=== PATIENT | male | born 1990 | race Hispanic/Latino ===

== ENCOUNTER 2017-06-09 10:38 | Emergency (ER) | payer OTHER ==
[2017-06-09 11:24] VITALS: RESP 18; TEMP 98.3; O2SAT 99; BMI 27.2
--- NOTE | 2017-06-09 12:09 | ED PDOC ---
Arrival/HPI - General Chief Complaint: Fever Time Seen by Provider: 06/09/17 10:40 Historian: Patient - History of Present Illness Narrative History of Present Illness (Text): 06/09/17 12:02 A 26 year old male, with no siginificant past medical history, presents to the emergency department complaining of fever and chills on/for the last 2 days. Patient states he took Motrin and Tylenol for his fever but had no relief. He went to Urgent Care and was given Amoxicillin, which did not help. Also, patient mentions experiencing left ear pressure and suprapubic pain with freq. urinating. Patient denies any dysuria, sore throat, cough, or any other complaints. No PMD Past Medical History - Provider Review Nursing Documentation Reviewed: Yes - Infectious Disease Hx of Infectious Diseases: None - Psychiatric Hx Substance Use: Yes (Socially) - Anesthesia Hx Anesthesia: No Family/Social History - Physician Review Nursing Documentation Reviewed: Yes Family/Social History: No Known Family HX Smoking Status: Never Smoked Hx Alcohol Use: Yes Frequency of alcohol use: Socially Hx Substance Use: Yes (Socially) Substance used: Marijuana Allergies/Home Meds Allergies/Adverse Reactions: Allergies No Known Allergies Allergy (Verified 06/09/17 11:29) Home Medications: Home Meds Medication Instructions Recorded Confirmed No Known Home Med 06/09/17 06/09/17 Physical Exam - Physical Exam Narrative Physical Exam (Text): 06/09/17 12:06 - Review of Systems Constitutional: Fevers. absent: Fatigue, Weight Change, Eyes: Normal ENT: Present: Left ear pressure. Denies sore throat, denies tristhmus. Respiratory: Normal. absent: SOB, Cough, Sputum Cardiovascular: absent: Chest Pain, Palpitations, Syncope Gastrointestinal: Normal. absent: Abdominal Pain, Diarrhea, Nausea, Vomiting Genitourinary: suprapubic pain, frequency. absent: Dysuria, Hematuria Musculoskeletal: Normal. absent: Arthralgias, Back Pain, Neck Pain Skin: no rashes, no erythema Neurological: absent: Focal Weakness Endocrine: Normal Hemo/Lymphatic: Normal Psychiatric: No suicidal or homicidal ideations Physical exam Patient appears age appropriate in no distress, speaking full sentences without difficulty - Systems Exam Head: Present: Atraumatic, Normocephalic Pupils: Present: PERRL Extroacular Muscles: Present: EOMI Conjunctiva: Present: Normal Mouth: Present: Moist Mucous Membranes Neck: Present: Normal Range of Motion. No: MIDLINE TENDERNESS, Paraspinal Tenderness Respiratory/Chest: Present: Clear to Auscultation, Good Air Exchange. No: Respiratory Distress, Accessory Muscle Use, Tachypneic Cardiovascular: Present: Regular Rate and Rhythm, Normal S1, S2, Peripheal Pulses Present. No: Murmurs Abdomen: Present: Normal Bowel Sounds. No: Tenderness, Distention, Peritoneal Signs, Rebound, Guarding Back: Present: Normal Inspection. No: Midline Tenderness, Paraspinal Tenderness Upper Extremity: Present: Normal Inspection. No: Cyanosis, Edema Lower Extremity: Present: Normal Inspection. No: Edema Neurological: Present: GCS=15, Speech Normal, cranial nerves II through XII fully intact with no cerebellar abnormality, neurosensory fully intact. No focal neurological deficits. Skin: Present: Warm, Dry, Normal Color. No: Rashes Lymphatic: Present: OX3, NI, NC Psychiatric: Present: Alert, Oriented x 3, Normal Insight, Normal Concentration Vital Signs Reviewed: Yes Vital Signs Temp Pulse Resp BP Pulse Ox 06/09/17 13:29 79 18 118/63 99 06/09/17 12:28 89 18 121/65 99 06/09/17 11:23 98.3 F 95 H 18 119/69 99 Temperature: Afebrile Blood Pressure: Normal Pulse: Regular Respiratory Rate: Normal Appearance: Positive for: Well-Appearing Pain Distress: None Mental Status: Positive for: Alert and Oriented X 3 - Systems Exam Ears: Present: Normal, NORMAL TM, Normal Canal. No: Erythema, TM Bulging, Fluid , TM Perf Pharnyx: Present: Normal. No: ERYTHEMA, EXUDATE, TONSILS ENLARGED, Peritonsilar Swelling, Uvular Deviation, Muffled/Hoarse Voice, Strider, Soft Palate/Uvular Edema Medical Decision Making ED Course and Treatment: 06/09/17 12:07 Impression: 26 year old male with fevers, chills, left ear pressure, and complaints. No acute findings on physical exam. Plan: -- Chest X-ray -- Labs -- Urinalysis -- Toradol -- IV Fluids -- Blood Culture -- Urine Culture -- Reassess and disposition Progress Notes: 06/09/2017 12:10 Patient is aware to follow up with medical records for urine. 06/09/17 13:15 Chest X-ray read and interpreted by me, which shows no cardiomegaly, no pneumothorax, no effusions. 06/09/17 13:42 pt currently afebrile and denies complaints. diagnosis of mono also considered, but unlikely since pt has no sore throat, normal lymphocytes, no rash after amoxicillin instructed to f/u outpatient with primary care physician and ENT specialist for further w/u and to return right away for new or worsening symptoms or if he is unable to f/u as instructed Pt states he understands to return to the ER right away for new or worsening symptoms or for inability to f/u with PMD or specialist as instructed. Patient states that he fully agrees with and understands discharge instructions. States that he agrees with the plan and disposition. Verbalized and repeated discharge instructions and plan. I have given the patient opportunity to ask any additional questions. - Lab Interpretations Lab Results: 06/09/17 13:03 06/09/17 13:03 Lab Results 06/09/17 13:03: Sodium 136, Potassium 4.4, Chloride 95 L, Carbon Dioxide 29, Anion Gap 16, BUN 12, Creatinine 0.8, Est GFR ( Amer) > 60, Est GFR (Non- Af Amer) > 60, Random Glucose 88, Calcium 9.1, Total Bilirubin 0.8, AST 66 H, ALT 61 H, Alkaline Phosphatase 102, Total Protein 7.4, Albumin 4.0, Globulin 3.3 , Albumin/Globulin Ratio 1.2 06/09/17 13:03: Urine Color Yellow, Urine Appearance Clear, Urine pH 7.0, Ur Specific [place] <= 1.005, Urine Protein Negative, Urine Glucose (UA) Negative, Urine Ketones Negative, Urine Blood Negative, Urine Nitrate Negative, Urine Bilirubin Negative, Urine Urobilinogen 0.2, Ur Leukocyte Esterase Negative 06/09/17 13:03: WBC 5.3, RBC 4.58, Hgb 13.5 L, Hct 41.2 L, MCV 90.0, MCH 29.5, MCHC 32.8, RDW 13.1, Plt Count 122, MPV 10.9, Gran % 64.1, Lymph % (Auto) 22.9, [place] % (Auto) 12.2 H, Eos % (Auto) 0.4 L, Baso % (Auto) 0.4, Gran # 3.41, Lymph # 1.2, [place] # 0.7 H, Eos # 0.0, Baso # 0.02 I have reviewed the lab results: Yes - RAD Interpretation Radiology Orders: 06/09/17 12:11 CHEST PORTABLE [RAD] Stat - Medication Orders Current Medication Orders: Discontinued Medications Sodium Chloride (Sodium Chloride 0.9%) 1,000 mls @ 1,000 mls/hr IV .Q1H STA Stop: 06/09/17 13:09 Last Admin: 06/09/17 12:39 Dose: 1,000 mls/hr eMAR Start Stop Document 06/09/17 12:39 [place] (Rec: 06/09/17 12:39 [id number]) Intravenous Solution Start Date 06/09/17 Start Time 12:39 Ketorolac Tromethamine (Toradol) 30 mg IVP STAT STA Stop: 06/09/17 12:11 Last Admin: 06/09/17 12:39 Dose: 30 mg MAR Pain Assessment Document 06/09/17 12:39 [place] (Rec: 06/09/17 12:40 [id number]) Pain Reassessment Is this a pain reassessment? No Sleep Is patient sleeping during reassessment? No Presence of Pain Presence of Pain Yes Pain Scale Used Pain Scale Used Numeric Location Pain Location Body Site Abdomen Description Intensity of Pain at present 8 Acceptable Level of Pain 2 IVP Administration Document 06/09/17 12:39 [place] (Rec: 06/09/17 12:40 [id number]) Charges for Administration # of IVP Administrations 1 - Scribe Statement The provider has reviewed the documentation as recorded by the Marci Fagan Provider Scribe Attestation: All medical record entries made by the Ngoziibrowdy were at my direction and personally dictated by me. I have reviewed the chart and agree that the record accurately reflects my personal performance of the history, physical exam, medical decision making, and the department course for this patient. I have also personally directed, reviewed, and agree with the discharge instructions and disposition. Disposition/Present on Arrival - Present on Arrival Any Indicators Present on Arrival: No History of DVT/PE: No History of Uncontrolled Diabetes: No Urinary Catheter: No History of Decub. Ulcer: No History Surgical Site Infection Following: None - Disposition Have Diagnosis and Disposition been Completed?: Yes Diagnosis: Fever Disposition: HOME/ ROUTINE Disposition Time: 13:46 Patient Plan: Discharge Condition: GOOD Discharge Instructions (ExitCare): Fever in Adults (ED) Additional Instructions: PLEASE RETURN TO THE EMERGENCY DEPARTMENT FOR NEW OR WORSENING SYMPTOMS. RETURN RIGHT AWAY IF YOU CANNOT FOLLOW UP WITH YOUR PRIMARY CARE DOCTOR, CLINIC, OR SPECIALIST IN 1-2 DAYS. Please continue taking Motrin or Tylenol for your symptoms, per pharmacy instructions Referrals: PCP,NO [Primary Care Provider] - Follow up with primary Debora Kovacs MD [Staff Provider] - Follow up with primary Addy Farfan DO [Staff Provider] - Follow up with primary [facility] [place] [Outside] - Follow up with primary Forms: [employer] (Romansh), WORK NOTE
[2017-06-09] MEDS ORDERED: Sodium Chloride 0.9% 1,000 ML IV STA (12:10)
[2017-06-09 13:11] LABS: BASO # 0.02 K/mm3 (0.0-2.0); BASO % 0.4 % (0.0-3.0); EOS % 0.4 % (1.5-5.0); GRAN # 3.41 (1.4-6.5); GRAN % 64.1 % (50.0-68.0); HEMATOCRIT 41.2 % (42.0-52.0); LYMPH # 1.2 (1.2-3.4); LYMPH % 22.9 % (22.0-35.0); MEAN CORPUSCULAR HEMOGLOBIN 29.5 pg (25.0-35.0); MEAN CORPUSCULAR HGB CONC 32.8 g/dl (31.0-37.0); MEAN PLATELET VOLUME 10.9 fl (7.0-11.0); MONO # 0.7 (0.1-0.6); MONO % 12.2 % (1.0-6.0); RED CELL DISTRIBUTION WIDTH 13.1 % (11.5-14.5); WHITE BLOOD COUNT 5.3 10^3/ul (4.5-11.0)
[2017-06-09 13:16] LABS: URINE APPEARANCE CLEAR (CLEAR); URINE BILIRUBIN NEGATIVE (NEGATIVE); URINE BLOOD NEGATIVE (NEGATIVE); URINE COLOR YELLOW (YELLOW); URINE GLUCOSE (UA) NEGATIVE (NEGATIVE); URINE KETONE NEGATIVE (NEGATIVE); URINE LEUKOCYTE ESTERASE NEGATIVE Leu/uL (NEGATIVE); URINE PROTEIN NEGATIVE mg/dL (<30 mg/dL); URINE UROBILINOGEN 0.2 E.U./dL (<1 E.U./dL)
[2017-06-09 13:23] LABS: ALB/GLOB RATIO 1.2 (1.1-1.8); ALKALINE PHOSPHATASE 102 U/L (38-126); ALT/SGPT 61 U/L (7-56); AST/SGOT 66 U/L (17-59); BILIRUBIN,TOTAL 0.8 mg/dL (0.2-1.3); BLOOD UREA NITROGEN 12 mg/dL (7-21); CALCIUM 9.1 mg/dL (8.4-10.5); CARBON DIOXIDE 29 mmol/L (21-33); CHLORIDE 95 mmol/L (98-107); GFR AFRICAN-AMERICAN > 60; GLUCOSE,RANDOM 88 mg/dL (70-110); POTASSIUM 4.4 mmol/L (3.6-5.0); SODIUM 136 mmol/L (132-148); TOTAL PROTEIN 7.4 g/dL (5.8-8.3)
--- NOTE | 2017-06-09 13:31 | RAD ---
HISTORY: cough COMPARISON: No prior. FINDINGS: LUNGS: The interstitial markings are slightly increased and coarsened with a few scattered peribronchial cuffing changes. Findings may represent sequela of reactive/inflammatory airway disease. No focal consolidation. PLEURA: No significant pleural effusion identified, no pneumothorax apparent. CARDIOVASCULAR: Normal. OSSEOUS STRUCTURES: No significant abnormalities. VISUALIZED UPPER ABDOMEN: Normal. OTHER FINDINGS: None. IMPRESSION: The interstitial markings are slightly increased and coarsened with a few scattered peribronchial cuffing changes. Findings may represent sequela of reactive/inflammatory airway disease. No focal consolidation.
[2017-06-09 14:44] VITALS: BP 109/61; PULSE 80
== END 2017-06-09 14:44 | disposition home or self-care (01) ==
LOC: ED 10:38
DX: R50.9 Fever, unspecified (principal)
CPT/HCPCS: 71010; 80053; 81003; 85025; 87040; 87086; 87491; 87591; 96374; 99284; J1885; J7040

== ENCOUNTER 2017-06-09 23:44 | Inpatient (IN) | payer OTHER ==
[2017-06-09 23:44] VITALS: BMI 27.2
[2017-06-10] MEDS ORDERED: Sodium Chloride 0.9% 1,000 ML IV STA (00:05)
--- NOTE | 2017-06-10 00:22 | ED PDOC ---
Arrival/HPI - General Historian: Patient <Huma Quinonez - Last Filed: 06/10/17 01:59> <Carrol Wharton - Last Filed: 06/10/17 02:12> - General Chief Complaint: Abdominal Pain Time Seen by Provider: 06/09/17 23:58 - History of Present Illness Narrative History of Present Illness (Text): 06/10/17 00:19 26-year-old male presents today with worsening lower abdominal pain. Patient states for the past 4 days he's had fevers of 102 at home. He denies sore throat. Denies cough. Denies nasal congestion. Patient states he's had of vague lower abdominal pain over the past 2 days that seems to have worsened throughout the day today. Patient denies dysuria or urinary frequency. Patient states it feels like it is harder to urinate today. Patient denies testicular pain. Patient states he took Motrin today for the fever. He denies vomiting or diarrhea. Denies any back pain. c/o nausea. Denies recent trauma or injury. patient states he was seen in the ER earlier today but symptoms have worsened. (Huma Quinonez) Past Medical History - Provider Review Nursing Documentation Reviewed: Yes - Travel History Have you recently traveled outside [place] w/in the past 3 mons?: No - Infectious Disease Hx of Infectious Diseases: None - Tetanus Immunization Tetanus Immunization: Unknown - Psychiatric Hx Substance Use: Yes (Socially) - Anesthesia Hx Anesthesia: No <Huma Quinonez - Last Filed: 06/10/17 01:59> Family/Social History - Physician Review Nursing Documentation Reviewed: Yes Family/Social History: Unknown Family HX Smoking Status: Never Smoked Hx Alcohol Use: Yes Hx Substance Use: Yes (Socially) Substance used: Marijuana <Huma Quinonez - Last Filed: 06/10/17 01:59> Allergies/Home Meds <Huma Quinonez - Last Filed: 06/10/17 01:59> <Carrol Wharton - Last Filed: 06/10/17 02:12> Allergies/Adverse Reactions: Allergies No Known Allergies Allergy (Verified 06/09/17 11:29) Home Medications: Home Meds Medication Instructions Recorded Confirmed No Known Home Med 06/09/17 06/10/17 Review of Systems - Review of Systems Constitutional: Fevers. absent: Fatigue ENT: absent: Sore Throat, Sinus Congestion Respiratory: absent: SOB, Cough Cardiovascular: absent: Chest Pain, Palpitations Gastrointestinal: Abdominal Pain. absent: Constipation, Diarrhea, Nausea, Vomiting Genitourinary Male: absent: Dysuria, Frequency, Hematuria, Urinary Output Changes Musculoskeletal: absent: Arthralgias, Back Pain, Neck Pain Skin: absent: Rash, Pruritis Neurological: Headache. absent: Dizziness Psychiatric: absent: Anxiety, Depression <Huma Quinonez - Last Filed: 06/10/17 01:59> Physical Exam Vital Signs Reviewed: Yes Temperature: Afebrile Blood Pressure: Normal Pulse: Regular Respiratory Rate: Normal Appearance: Positive for: Well-Appearing, Non-Toxic, Comfortable Pain Distress: None Mental Status: Positive for: Alert and Oriented X 3 - Systems Exam Head: Present: Atraumatic Mouth: Present: Moist Mucous Membranes Neck: Present: Normal Range of Motion Respiratory/Chest: Present: Clear to Auscultation, Good Air Exchange. No: Respiratory Distress, Accessory Muscle Use Cardiovascular: Present: Regular Rate and Rhythm, Normal S1, S2. No: Murmurs Abdomen: Present: Tenderness (rlq, suprapubic tenderness), Normal Bowel Sounds, Guarding. No: Distention, Peritoneal Signs, Rebound, Hernias Genitourinary Male: Present: Normal External Genitalia, Circumcised Penis, Other (chaparoned by Julius EDEN). No: Penile Discharge, Testicle Tenderness , Penile Swelling, Masses, Erythema Back: Present: Normal Inspection. No: CVA Tenderness, Midline Tenderness, Paraspinal Tenderness Upper Extremity: Present: Normal Inspection Lower Extremity: Present: Normal Inspection. No: Edema Neurological: Present: GCS=15 Skin: Present: Warm, Dry, Normal Color. No: Rashes Psychiatric: Present: Alert, Oriented x 3 <Huma Quinonez - Last Filed: 06/10/17 01:59> Vital Signs Temp Pulse Resp BP Pulse Ox 06/09/17 23:59 99 F 87 16 109/65 98 Medical Decision Making <Huma Quinonez - Last Filed: 06/10/17 01:59> <Carrol Wharton - Last Filed: 06/10/17 02:12> ED Course and Treatment: 06/10/17 00:21 Patient is nontoxic well appearing with stable vital signs presenting with lower abdominal pain and fevers of 102 at home x 4 days. toradol given for pain. CBC wnl CMP: elevated ast and alt Lipase wnl Urinalysis: CAT scan: FINDINGS: Lower thorax: The bilateral lung bases are clear. ABDOMEN: Liver: The liver is enlarged, and demonstrates diffuse fatty infiltration. Gallbladder and bile ducts: The gallbladder is decompressed. No calcified stones. No significant intra- or extrahepatic biliary ductal dilation. Pancreas: Enhances homogeneously. No ductal dilation. No discrete mass. Spleen: No acute findings. Adrenals: No acute findings. Kidneys and ureters: No acute findings. No hydronephrosis or renal calculi. No discrete solid mass. PELVIS: Bladder: No acute findings. Reproductive: No acute findings. Appendix: The appendix is not definitively visualized. ABDOMEN and PELVIS: Stomach and bowel: No obstruction. No mucosal thickening. Peritoneum: Free fluid is identified within the pelvis, never a normal finding in a male patient. Lymph nodes: Limited evaluation for the presence or absence of enlarged lymph nodes, secondary to the lack of intra-abdominal fat. Vasculature: Unremarkable. Bones: No acute fracture. IMPRESSION: Free fluid within the pelvis, which is never a normal finding in a male patient. Nonvisualization of the appendix, for which clinical correlation is needed. Fatty infiltration of an enlarged liver. Patient reassessment: pt with continued pain; will admit observational status for abdominal pain with ct finding with Discussed all results with patient in depth case discussed with dr. green; accepts observational status admission with surgical consult case discussed with surgical rn dr. thibodeaux; Impression: Abdominal pain admit observational status to med/surg with surgical consult. (Huma Quinonez) - Lab Interpretations Lab Results: 06/10/17 00:15 06/10/17 00:15 Lab Results 06/10/17 00:15: WBC 4.7, RBC 4.30, Hgb 12.8 L, Hct 38.6 L, MCV 89.8, MCH 29.8, MCHC 33.2, RDW 13.2, Plt Count 128, MPV 10.6, Gran % 52.4, Lymph % (Auto) 32.6, [place] % (Auto) 13.1 H, Eos % (Auto) 1.3 L, Baso % (Auto) 0.6, Gran # 2.48, Lymph # 1.5, [place] # 0.6, Eos # 0.1, Baso # 0.03 06/10/17 00:15: Sodium 137, Potassium 3.9, Chloride 97 L, Carbon Dioxide 30, Anion Gap 14, BUN 13, Creatinine 0.9, Est GFR ( Amer) > 60, Est GFR (Non- Af Amer) > 60, Random Glucose 89, Calcium 9.0, Total Bilirubin 0.7, AST 84 H D, ALT 73 H, Alkaline Phosphatase 104, Total Protein 7.1, Albumin 3.9, Globulin 3.2 , Albumin/Globulin Ratio 1.2, Lipase 98 - RAD Interpretation Radiology Orders: 06/10/17 00:05 ABD & PELVIS IV CONTRAST ONLY [CT] Stat - Medication Orders Current Medication Orders: Discontinued Medications Sodium Chloride (Sodium Chloride 0.9%) 1,000 mls @ 999 mls/hr IV .Q1H1M STA Stop: 06/10/17 01:05 Last Admin: 06/10/17 00:15 Dose: 999 mls/hr eMAR Start Stop Document 06/10/17 00:15 YP (Rec: 06/10/17 00:37 YP [id number]) Intravenous Solution Start Date 06/10/17 Start Time 00:15 End Date 06/10/17 End time 01:15 Total Infusion Time 60 Iohexol (Omnipaque 350 100 Ml) Confirm Administered Dose 350 mg .ROUTE .STK-MED ONE Stop: 06/10/17 00:29 Ketorolac Tromethamine (Toradol) 30 mg IVP STAT STA Stop: 06/10/17 00:06 Last Admin: 06/10/17 00:39 Dose: 30 mg MAR Pain Assessment Document 06/10/17 00:39 YP (Rec: 06/10/17 00:40 YP [id number]) Pain Reassessment Is this a pain reassessment? No Sleep Is patient sleeping during reassessment? No Presence of Pain Presence of Pain Yes IVP Administration Document 06/10/17 00:39 YP (Rec: 06/10/17 00:40 YP [id number]) Charges for Administration # of IVP Administrations 1 - PA / [employer] / Resident Statement / has reviewed & agrees with the documentation as recorded. / has examined the patient and agrees with the treatment plan. <Carrol Wharton - Last Filed: 06/10/17 02:12> Disposition/Present on Arrival - Present on Arrival Any Indicators Present on Arrival: No History of DVT/PE: No History of Uncontrolled Diabetes: No Urinary Catheter: No History of Decub. Ulcer: No History Surgical Site Infection Following: None - Disposition Have Diagnosis and Disposition been Completed?: Yes Disposition Time: 01:44 Patient Plan: Observation <Huma Quinonez - Last Filed: 06/10/17 01:59> <Carrol Wharton - Last Filed: 06/10/17 02:12> - Disposition Diagnosis: Abdominal pain Disposition: HOSPITALIZED Patient Problems: Current Active Problems Problem Status Onset Abdominal pain Acute Condition: FAIR
[2017-06-10] MEDS ORDERED: Iohexol 350 MG/100 ML VIAL ONE (00:28)
[2017-06-10 00:48] LABS: ALB/GLOB RATIO 1.2 (1.1-1.8); ALKALINE PHOSPHATASE 104 U/L (38-126); ALT/SGPT 73 U/L (7-56); AST/SGOT 84 U/L (17-59); BILIRUBIN,TOTAL 0.7 mg/dL (0.2-1.3); BLOOD UREA NITROGEN 13 mg/dL (7-21); CARBON DIOXIDE 30 mmol/L (21-33); CHLORIDE 97 mmol/L (98-107); GFR AFRICAN-AMERICAN > 60; GLUCOSE,RANDOM 89 mg/dL (70-110); LIPASE 98 U/L (23-300); POTASSIUM 3.9 mmol/L (3.6-5.0); SODIUM 137 mmol/L (132-148); TOTAL PROTEIN 7.1 g/dL (5.8-8.3)
[2017-06-10 00:51] LABS: BASO # 0.03 K/mm3 (0.0-2.0); BASO % 0.6 % (0.0-3.0); EOS # 0.1 (0.0-0.7); EOS % 1.3 % (1.5-5.0); GRAN # 2.48 (1.4-6.5); GRAN % 52.4 % (50.0-68.0); HEMATOCRIT 38.6 % (42.0-52.0); LYMPH # 1.5 (1.2-3.4); LYMPH % 32.6 % (22.0-35.0); MEAN CELL VOLUME 89.8 fl (80.0-105.0); MEAN CORPUSCULAR HEMOGLOBIN 29.8 pg (25.0-35.0); MEAN CORPUSCULAR HGB CONC 33.2 g/dl (31.0-37.0); MEAN PLATELET VOLUME 10.6 fl (7.0-11.0); MONO # 0.6 (0.1-0.6); MONO % 13.1 % (1.0-6.0); RED CELL DISTRIBUTION WIDTH 13.2 % (11.5-14.5); WHITE BLOOD COUNT 4.7 10^3/ul (4.5-11.0)
--- NOTE | 2017-06-10 01:32 | CT ---
EXAM: CT Abdomen and Pelvis With Intravenous Contrast CLINICAL HISTORY: 26 years old, male; Pain; Abdominal pain; Generalized; Additional info: Abd pain TECHNIQUE: Axial computed tomography images of the abdomen and pelvis with intravenous contrast. All CT scans at this facility use one or more dose reduction techniques, viz.: automated exposure control; ma/kV adjustment per patient size (including targeted exams where dose is matched to indication; i.e. head); or iterative reconstruction technique. Coronal and sagittal reformatted images were created and reviewed. CONTRAST: 96 mL of OMNI 350 administered intravenously. COMPARISON: No relevant prior studies available. FINDINGS: Lower thorax: The bilateral lung bases are clear. ABDOMEN: Liver: The liver is enlarged, and demonstrates diffuse fatty infiltration. Gallbladder and bile ducts: The gallbladder is decompressed. No calcified stones. No significant intra- or extrahepatic biliary ductal dilation. Pancreas: Enhances homogeneously. No ductal dilation. No discrete mass. Spleen: No acute findings. Adrenals: No acute findings. Kidneys and ureters: No acute findings. No hydronephrosis or renal calculi. No discrete solid mass. PELVIS: Bladder: No acute findings. Reproductive: No acute findings. Appendix: The appendix is not definitively visualized. ABDOMEN and PELVIS: Stomach and bowel: No obstruction. No mucosal thickening. Peritoneum: Free fluid is identified within the pelvis, never a normal finding in a male patient. Lymph nodes: Limited evaluation for the presence or absence of enlarged lymph nodes, secondary to the lack of intra-abdominal fat. Vasculature: Unremarkable. Bones: No acute fracture. IMPRESSION: Free fluid within the pelvis, which is never a normal finding in a male patient. Nonvisualization of the appendix, for which clinical correlation is needed. Fatty infiltration of an enlarged liver.
--- NOTE | 2017-06-10 03:12 | CP.PCM.CON ---
History of Present Illness - History of Present Illness History of Present Illness: General Surgery Consult Re: lower abdominal pain and fevers HPI: 26M presented to ED with increasing lower abdominal/suprapubic pain x 2 days. Pt had earache and fevers up to 102 at home x 4 days. Initially pt had vague lower abdominal pain which began getting worse today. Pt took Motrin and tylenol for the fever. + Occasional nausea. This was his second visit to the ED yesterday and he had been seen at an urgent care and was given amoxicillin without relief. Denies recent trauma or injury. Denies rectal insertions/ intercourse. Denies chills, emesis, headache, dizziness, diarrhea, constipation , back pain, dysuria, hematuria, hematochezia, melena. PMH: herniated discs PSH: Denies SH: Occasional THC, social EtOH, no other drug use All: NKDA Meds: Denies Past Patient History - Infectious Disease Hx of Infectious Diseases: None - Tetanus Immunizations Tetanus Immunization: Unknown - Past Social History Smoking Status: Never Smoked - PSYCHIATRIC Hx Substance Use: Yes (Socially) - SURGICAL HISTORY Hx Surgeries: No - ANESTHESIA Hx Anesthesia: No Meds Allergies/Adverse Reactions: Allergies Allergy/AdvReac Type Severity Reaction Status Date / Time No Known Allergies Allergy Verified 06/09/17 11:29 Physical Exam - Constitutional Appears: Non-toxic, No Acute Distress - Head Exam Head Exam: ATRAUMATIC, NORMOCEPHALIC - Eye Exam Eye Exam: EOMI. absent: Scleral icterus - ENT Exam ENT Exam: Mucous Membranes Moist Additional comments: trachea midline - Neck Exam Neck exam: Positive for: Full Rom - Respiratory Exam Respiratory Exam: NORMAL BREATHING PATTERN. absent: Respiratory Distress - Cardiovascular Exam Cardiovascular Exam: RRR, +S1, +S2 - GI/Abdominal Exam GI & Abdominal Exam: Soft, Tenderness (Mostly suprapubic with some in RLQ). absent: Distended, Firm, Guarding, Hernia, Rebound, Rigid - Rectal Exam Rectal Exam: Deferred - Extremities Exam Extremities exam: Negative for: calf tenderness, pedal edema - Back Exam Back exam: absent: CVA tenderness (L), CVA tenderness (R) - Neurological Exam Neurological exam: Alert, Oriented x3 - Psychiatric Exam Psychiatric exam: Normal Affect, Normal Mood - Skin Skin Exam: Dry, Warm Results - Vital Signs Recent Vital Signs: Last Vital Signs Temp 99 F 06/09/17 23:59 Pulse 80 06/10/17 02:43 Resp 16 06/10/17 02:43 BP 120/64 06/10/17 02:43 Pulse Ox 98 06/10/17 02:43 - Labs Result Diagrams: 06/10/17 00:15 06/10/17 00:15 - Imaging and Cardiology CT scan - abdomen Status: Image reviewed by me, Report reviewed by me Chest x-ray Status: Image reviewed by me, Report reviewed by me Assessment & Plan - Assessment and Plan (Free Text) Assessment: 26M with lower abdominal/pelvic pain and fevers Plan: Serial abd exams Monitor for fevers Analgesia AM labs Will D/W Dr. Kim Burns PGY4
[2017-06-10 03:16] LABS: PH,URINE 6.5 (4.7-8.0); URINE BILIRUBIN NEGATIVE (NEGATIVE); URINE BLOOD NEGATIVE (NEGATIVE); URINE GLUCOSE (UA) NEGATIVE (NEGATIVE); URINE KETONE NEGATIVE (NEGATIVE); URINE LEUKOCYTE ESTERASE NEGATIVE Leu/uL (NEGATIVE); URINE PROTEIN NEGATIVE mg/dL (<30 mg/dL); URINE UROBILINOGEN 0.2 E.U./dL (<1 E.U./dL)
[2017-06-10 03:21] LABS: URINE APPEARANCE CLEAR (CLEAR); URINE COLOR YELLOW (YELLOW)
[2017-06-10] MEDS ORDERED: Sodium Chloride 0.9% 1,000 ML IV SCH (04:15)
[2017-06-10] MEDS ORDERED: metroNIDAZOLE IV 250mg/50 ml 250 MG/50 ML BAG IVPB SCH (06:00)
[2017-06-10] MEDS: Sodium Chloride 0.9% 1,000 ML IV SCH ×2 (06:09→17:06)
[2017-06-10] MEDS: Piperacillin/Tazobact 3.375 gm 100 ML IVPB SCH ×2 (06:09→12:35)
[2017-06-10] MEDS: Pantoprazole 40 mg EC Tab PO SCH (06:10)
--- NOTE | 2017-06-10 07:26 | CP.PCM.HP ---
<LONI REEVES - Last Filed: 06/10/17 07:11> History of Present Illness - History of Present Illness History of Present Illness: Loni Reeves DO PGY1 - Internal Medicine H&P CC: Fever and abdominal pain HPI: 26yo M with no PMH presents for worsening abdominal pain, and fever to 102 of four days duration. He denies N/V/D/C, dysuria, hematuria, sick contacts, CP , SOB, rash, urethral discharge, scrotal pain. He admits to traveling to [facility] 2 months ago. He has one sexual partner whom he has been with for several years, but does not use protection. He denies any recent trauma or injury. PMH: None PSH: None Meds: None Fhx: Lung CA father Soc: Drinks 8-10 beers on weekends, denies tobacco or illicits All: NKDA ROS: As above Present on Admission - Present on Admission Any Indicators Present on Admission: No Past Patient History - Infectious Disease Hx of Infectious Diseases: None - Tetanus Immunizations Tetanus Immunization: Unknown - Past Social History Smoking Status: Never Smoked - MUSCULOSKELETAL/RHEUMATOLOGICAL Hx Falls: No - PSYCHIATRIC Hx Substance Use: Yes (Socially) - SURGICAL HISTORY Hx Surgeries: No - ANESTHESIA Hx Anesthesia: No Meds Allergies/Adverse Reactions: Allergies Allergy/AdvReac Type Severity Reaction Status Date / Time No Known Allergies Allergy Verified 06/09/17 11:29 Physical Exam - Constitutional Appears: Non-toxic, No Acute Distress - Head Exam Head Exam: NORMAL INSPECTION - Eye Exam Eye Exam: EOMI, Normal appearance, PERRL - ENT Exam ENT Exam: Mucous Membranes Moist, Normal Exam, TM's Normal Bilaterally - Neck Exam Neck exam: Negative for: Lymphadenopathy, Meningismus, Thyromegaly - Respiratory Exam Respiratory Exam: Clear to Auscultation Bilateral. absent: Rales, Rhonchi, Wheezes - Cardiovascular Exam Cardiovascular Exam: RRR, +S1, +S2 - GI/Abdominal Exam GI & Abdominal Exam: Normal Bowel Sounds, Soft. absent: Guarding, Hernia, Rigid Additional comments: Suprapubic tenderness - Rectal Exam Rectal Exam: absent: Black Stool, Bloody Stool, Hemorrhoids, Fecal Impaction Additional comments: No prostatic enlargement, minimal prostatic tenderness - Exam Exam: Circumcision, NORMAL INSPECTION. absent: Scrotal Swelling, Testicular Tenderness, Uretheral Discharge, Bladder Distension External exam: NORMAL EXTERNAL EXAM. absent: Ecchymosis, Erythema, Lacerations , Lesions, Swelling - Extremities Exam Extremities exam: Positive for: normal inspection. Negative for: calf tenderness, pedal edema - Back Exam Back exam: absent: CVA tenderness (L), CVA tenderness (R) - Neurological Exam Neurological exam: Alert, CN II-XII Intact, Oriented x3 - Psychiatric Exam Psychiatric exam: Normal Affect, Normal Mood - Skin Skin Exam: Dry, Intact, Normal Color Results - Vital Signs Recent Vital Signs: Last Vital Signs Temp 100.9 F H 06/10/17 06:45 Pulse 80 06/10/17 02:43 Resp 17 06/10/17 03:13 BP 120/64 06/10/17 02:43 Pulse Ox 98 06/10/17 02:43 - Labs Result Diagrams: 06/10/17 00:15 06/10/17 00:15 Labs: Laboratory Results - last 24 hr 06/10/17 02:35 Urine Color Yellow Urine Appearance Clear Urine pH 6.5 Ur Specific [place] <= 1.005 Urine Protein Negative Urine Glucose (UA) Negative Urine Ketones Negative Urine Blood Negative Urine Nitrate Negative Urine Bilirubin Negative Urine Urobilinogen 0.2 Ur Leukocyte Esterase Negative Assessment & Plan - Assessment and Plan (Free Text) Assessment: 26 yo M with no PMH presents with abdominal pain and history of fever, noted to have free fluid in pelvis on CT 1. Abdominal pain w/free fluid in pelvis 2/2 appendicitis vs prostatitis vs cystitis vs peritonitis - Patient presented with suprapubic abdominal pain x4d duration, afebrile at the time - CT abd/pelv showed free fluid collection in pelvis, nonvisualized appendix, and fatty liver - Labs significant for mild transaminitis - UA normal - BCx, UCx ordered - Hep panel, HIV screen, and acetaminophen level ordered - Empiric antibiotics ordered for intraabdominal infection; Flagyl and Zosyn - Ibuprofen for fevers - Surgery consulted, appreciate recs - Keep NPO - Continue to monitor GI/DVT Ppx Patient seen, discussed, and reviewed with attending <Jessica Louise - Last Filed: 06/10/17 08:32> Results - Vital Signs Recent Vital Signs: Last Vital Signs Temp 100.9 F H 06/10/17 06:45 Pulse 87 06/10/17 06:00 Resp 20 09/22/17 06:00 BP 113/58 L 06/10/17 06:00 Pulse Ox 97 06/10/17 06:00 - Labs Result Diagrams: 06/10/17 00:15 06/10/17 00:15 Labs: Laboratory Results - last 24 hr 06/10/17 02:35 Urine Color Yellow Urine Appearance Clear Urine pH 6.5 Ur Specific [place] <= 1.005 Urine Protein Negative Urine Glucose (UA) Negative Urine Ketones Negative Urine Blood Negative Urine Nitrate Negative Urine Bilirubin Negative Urine Urobilinogen 0.2 Ur Leukocyte Esterase Negative Attending/Attestation - Attestation I have personally seen and examined this patient.: Yes I have fully participated in the care of the patient.: Yes I have reviewed all pertinent clinical information: Yes
[2017-06-10 08:34] LABS: BASO # 0.03 K/mm3 (0.0-2.0); BASO % 0.5 % (0.0-3.0); EOS # 0.1 (0.0-0.7); EOS % 1.1 % (1.5-5.0); GRAN # 3.26 (1.4-6.5); GRAN % 58.9 % (50.0-68.0); HEMATOCRIT 39.4 % (42.0-52.0); LYMPH # 1.4 (1.2-3.4); LYMPH % 25.9 % (22.0-35.0); MEAN CELL VOLUME 88.7 fl (80.0-105.0); MEAN CORPUSCULAR HEMOGLOBIN 29.5 pg (25.0-35.0); MEAN CORPUSCULAR HGB CONC 33.2 g/dl (31.0-37.0); MEAN PLATELET VOLUME 10.5 fl (7.0-11.0); MONO # 0.8 (0.1-0.6); MONO % 13.6 % (1.0-6.0); RED CELL DISTRIBUTION WIDTH 13.2 % (11.5-14.5); WHITE BLOOD COUNT 5.5 10^3/ul (4.5-11.0)
[2017-06-10 08:44] LABS: ALB/GLOB RATIO 1.2 (1.1-1.8); ALKALINE PHOSPHATASE 108 U/L (38-126); ALT/SGPT 113 U/L (7-56); AST/SGOT 133 U/L (17-59); BILIRUBIN,TOTAL 0.8 mg/dL (0.2-1.3); BLOOD UREA NITROGEN 11 mg/dL (7-21); CARBON DIOXIDE 27 mmol/L (21-33); CHLORIDE 102 mmol/L (98-107); GFR AFRICAN-AMERICAN > 60; GLUCOSE,RANDOM 90 mg/dL (70-110); POTASSIUM 3.9 mmol/L (3.6-5.0); SODIUM 139 mmol/L (132-148); TOTAL PROTEIN 6.9 g/dL (5.8-8.3)
--- NOTE | 2017-06-10 11:14 | US ---
HISTORY: Elevated LFT COMPARISON: None. TECHNIQUE: Grayscale imaging was performed. FINDINGS: LIVER: Measures 20.1 cm. Normal echogenicity of the liver parenchyma. No mass. No intrahepatic bile duct dilatation. GALLBLADDER: Unremarkable. No gallstones. COMMON BILE DUCT: Measures 3.8 mm. No stones. No dilatation. PANCREAS: The pancreas is normal in size and echotexture. No ductal dilatation. RIGHT KIDNEY: Measures 12.3cm. Normal echogenicity. No calculus, mass, or hydronephrosis. LEFT KIDNEY: Measures 13.5cm. Normal echogenicity. No calculus, mass, or hydronephrosis. SPLEEN: Normal in size and contour. No mass. AORTA: No aneurysmal dilatation. IVC: Unremarkable. OTHER FINDINGS: None. IMPRESSION: Mild hepatomegaly. Diffuse increased echogenicity in the liver may reflect hepatic steatosis however parenchymal infectious/ inflammatory etiologies cannot be entirely excluded. Clinical and laboratory correlation is advised. No cholelithiasis or biliary dilatation.
--- NOTE | 2017-06-10 17:56 | CP.PCM.CON ---
History of Present Illness - History of Present Illness History of Present Illness: Infectious Disease Consultation: June 10, 2017 26 yo male presenting with worsening lower abdominal and suprapubic pain starting 2 days ago. Initially started with earaches and fevers up to 102 F. This started 4 days ago. He was given Amoxicillin through an Urgent care without any relief. The patient has no significant medical history. Seen by surgery. Free fluid in the abdominal ultrasound. Increased echogenecity in the liver on CT scan. PMHx: herniated discs PSHx: none given Allergies: NKDA Social Hx: Social EtOH, No tobacco, Occasional THC Active Medications Heparin Sodium (Porcine) (Heparin) 5,000 units SC Q12 MIKE PRN Reason: Protocol Last Admin: 06/10/17 10:16 Dose: Not Given Sodium Chloride (Sodium Chloride 0.9%) 1,000 mls @ 100 mls/hr IV .Q10H [facility] Last Admin: 06/10/17 17:06 Dose: 100 mls/hr Ibuprofen (Motrin Tab) 400 mg PO Q6H PRN PRN Reason: Fever >100.4 F Last Admin: 06/10/17 15:56 Dose: 400 mg Ketorolac Tromethamine (Toradol) 30 mg IVP Q6H PRN PRN Reason: Pain, moderate (4-7) Last Admin: 06/10/17 13:34 Dose: 30 mg Ondansetron HCl (Zofran Inj) 4 mg IVP Q4H PRN PRN Reason: Nausea/Vomiting Pantoprazole Sodium (Protonix Ec Tab) 40 mg PO 0600 [facility] Last Admin: 06/10/17 06:10 Dose: 40 mg Pneumococcal Polyvalent Vaccine (Pneumovax 23 Vaccine) 0.5 ml IM .ONCE ONE Stop: 06/12/17 10:01 Tramadol HCl (Ultram) 25 mg PO Q6 PRN PRN Reason: Pain, severe (8-10) Last Admin: 06/10/17 17:05 Dose: 25 mg Family Hx: father - lung cancer ROS: fevers, chills, abdominal pain, suprapubic pain, nausea, vomiting. No chest pain, melena, hematuria, hematemesis, hematochezia, depression, anxiety, diarrhea. Past Patient History - Infectious Disease Hx of Infectious Diseases: None - Tetanus Immunizations Tetanus Immunization: Unknown - Past Social History Smoking Status: Never Smoked - MUSCULOSKELETAL/RHEUMATOLOGICAL Hx Falls: No - PSYCHIATRIC Hx Substance Use: Yes (Socially) - SURGICAL HISTORY Hx Surgeries: No - ANESTHESIA Hx Anesthesia: No Meds Allergies/Adverse Reactions: Allergies Allergy/AdvReac Type Severity Reaction Status Date / Time No Known Allergies Allergy Verified 06/09/17 11:29 - Medications Medications: Current Medications Heparin Sodium (Porcine) (Heparin) 5,000 units SC Q12 MIKE PRN Reason: Protocol Last Admin: 06/10/17 10:16 Dose: Not Given Sodium Chloride (Sodium Chloride 0.9%) 1,000 mls @ 100 mls/hr IV .Q10H [facility] Last Admin: 06/10/17 17:06 Dose: 100 mls/hr Ibuprofen (Motrin Tab) 400 mg PO Q6H PRN PRN Reason: Fever >100.4 F Last Admin: 06/10/17 15:56 Dose: 400 mg Ketorolac Tromethamine (Toradol) 30 mg IVP Q6H PRN PRN Reason: Pain, moderate (4-7) Last Admin: 06/10/17 13:34 Dose: 30 mg Ondansetron HCl (Zofran Inj) 4 mg IVP Q4H PRN PRN Reason: Nausea/Vomiting Pantoprazole Sodium (Protonix Ec Tab) 40 mg PO 0600 [facility] Last Admin: 06/10/17 06:10 Dose: 40 mg Pneumococcal Polyvalent Vaccine (Pneumovax 23 Vaccine) 0.5 ml IM .ONCE ONE Stop: 06/12/17 10:01 Tramadol HCl (Ultram) 25 mg PO Q6 PRN PRN Reason: Pain, severe (8-10) Last Admin: 06/10/17 17:05 Dose: 25 mg Physical Exam - Constitutional Appears: Non-toxic, No Acute Distress - Head Exam Head Exam: ATRAUMATIC, NORMOCEPHALIC - Eye Exam Eye Exam: EOMI, PERRL Pupil Exam: NORMAL ACCOMODATION, PERRL - ENT Exam ENT Exam: Mucous Membranes Moist, Normal External Ear Exam, TM's Normal Bilaterally - Neck Exam Neck exam: Positive for: Full Rom, Normal Inspection - Respiratory Exam Respiratory Exam: Clear to Auscultation Bilateral, NORMAL BREATHING PATTERN. absent: Rales, Rhonchi, Wheezes - Cardiovascular Exam Cardiovascular Exam: REGULAR RHYTHM, RRR, +S1, +S2 - GI/Abdominal Exam GI & Abdominal Exam: Normal Bowel Sounds, Soft, Tenderness. absent: Distended, Rigid Additional comments: tenderness suprapubic and RLQ. - Extremities Exam Extremities exam: Positive for: full ROM, normal inspection - Neurological Exam Neurological exam: Alert, CN II-XII Intact, Oriented x3 - Psychiatric Exam Psychiatric exam: Normal Affect, Normal Mood - Skin Skin Exam: Intact, Normal Color Results - Vital Signs Recent Vital Signs: Last Vital Signs Temp 103.1 F H 06/10/17 16:03 Pulse 90 06/10/17 16:03 Resp 12 06/10/17 16:03 BP 134/75 06/10/17 16:03 Pulse Ox 99 06/10/17 16:03 - Labs Result Diagrams: 06/10/17 07:30 06/10/17 07:30 Labs: Laboratory Results - last 24 hr 06/10/17 06/10/17 06/10/17 02:35 07:30 07:30 WBC 5.5 RBC 4.44 Hgb 13.1 L Hct 39.4 L MCV 88.7 MCH 29.5 MCHC 33.2 RDW 13.2 Plt Count 138 MPV 10.5 Gran % 58.9 Lymph % (Auto) 25.9 [place] % (Auto) 13.6 H Eos % (Auto) 1.1 L Baso % (Auto) 0.5 Gran # 3.26 Lymph # 1.4 [place] # 0.8 H Eos # 0.1 Baso # 0.03 Sodium 139 Potassium 3.9 Chloride 102 Carbon Dioxide 27 Anion Gap 14 BUN 11 Creatinine 0.9 Est GFR ( Amer) > 60 Est GFR (Non-Af Amer) > 60 Random Glucose 90 Lactic Acid Calcium 9.0 Total Bilirubin 0.8 AST 133 H D ALT 113 H Alkaline Phosphatase 108 Total Protein 6.9 Albumin 3.8 Globulin 3.2 Albumin/Globulin Ratio 1.2 Urine Color Yellow Urine Appearance Clear Urine pH 6.5 Ur Specific [place] <= 1.005 Urine Protein Negative Urine Glucose (UA) Negative Urine Ketones Negative Urine Blood Negative Urine Nitrate Negative Urine Bilirubin Negative Urine Urobilinogen 0.2 Ur Leukocyte Esterase Negative Acetaminophen Hepatitis A IgM Ab Hep Bs Antigen Hep B Core IgM Ab Hepatitis C Antibody 06/10/17 06/10/17 06/10/17 07:30 07:30 07:30 WBC RBC Hgb Hct MCV MCH MCHC RDW Plt Count MPV Gran % Lymph % (Auto) [place] % (Auto) Eos % (Auto) Baso % (Auto) Gran # Lymph # [place] # Eos # Baso # Sodium Potassium Chloride Carbon Dioxide Anion Gap BUN Creatinine Est GFR ( Amer) Est GFR (Non-Af Amer) Random Glucose Lactic Acid 0.6 L Calcium Total Bilirubin AST ALT Alkaline Phosphatase Total Protein Albumin Globulin Albumin/Globulin Ratio Urine Color Urine Appearance Urine pH Ur Specific [place] Urine Protein Urine Glucose (UA) Urine Ketones Urine Blood Urine Nitrate Urine Bilirubin Urine Urobilinogen Ur Leukocyte Esterase Acetaminophen < 10.0 L Hepatitis A IgM Ab Negative Hep Bs Antigen Negative Hep B Core IgM Ab Negative Hepatitis C Antibody Negative Assessment & Plan - Assessment and Plan (Free Text) Assessment: 26 yo male with increasing abdominal pain and fevers up to 102.0 F over the past 4 days. The patient with vague findings in the imaging studies of the abdomen. Hepatitis screen was negative for A, B, and C. The patient with mild elevation of the LFTs. [place] cultures sent. No leukocytosis. No specific findings in the urinalysis. Started on Cefepime and Flagyl for now. Free fluid in the abdomen as seen by Ultrasound. Fevers up to 103.1 F. Cannot rule out peritonitis and perforation. Supportive care. He is sexually active. Recently in [place] 2 months ago. Thank you for allowing me to participate in the care of the patient, we will follow with you.
[2017-06-10] MEDS: Cefepime 1gm in NS 100ml 1 GM/100 ML BAG IVPB SCH (21:44)
[2017-06-11] MEDS: Pantoprazole 40 mg EC Tab PO SCH (05:36)
[2017-06-11 07:51] LABS: BASO # 0.03 K/mm3 (0.0-2.0); BASO % 0.4 % (0.0-3.0); EOS % 0.6 % (1.5-5.0); GRAN # 4.64 (1.4-6.5); GRAN % 68.5 % (50.0-68.0); HEMATOCRIT 36.6 % (42.0-52.0); LYMPH # 1.3 (1.2-3.4); LYMPH % 18.4 % (22.0-35.0); MEAN CELL VOLUME 89.1 fl (80.0-105.0); MEAN CORPUSCULAR HEMOGLOBIN 28.7 pg (25.0-35.0); MEAN CORPUSCULAR HGB CONC 32.2 g/dl (31.0-37.0); MEAN PLATELET VOLUME 10.6 fl (7.0-11.0); MONO # 0.8 (0.1-0.6); MONO % 12.1 % (1.0-6.0); RED CELL DISTRIBUTION WIDTH 13.4 % (11.5-14.5); WHITE BLOOD COUNT 6.8 10^3/ul (4.5-11.0)
[2017-06-11 08:03] LABS: ALKALINE PHOSPHATASE 98 U/L (38-126); ALT/SGPT 233 U/L (7-56); AST/SGOT 227 U/L (17-59); BILIRUBIN,TOTAL 0.7 mg/dL (0.2-1.3); BLOOD UREA NITROGEN 9 mg/dL (7-21); CALCIUM 8.2 mg/dL (8.4-10.5); CARBON DIOXIDE 28 mmol/L (21-33); CHLORIDE 97 mmol/L (95-110); GFR AFRICAN-AMERICAN > 60; GLUCOSE,RANDOM 101 mg/dL (70-110); MAGNESIUM 1.7 mg/dL (1.7-2.2); PHOSPHOROUS 2.7 mg/dL (2.5-4.5); POTASSIUM 3.5 mmol/L (3.6-5.0); SODIUM 134 mmol/L (132-148); TOTAL PROTEIN 6.3 g/dL (5.8-8.3)
[2017-06-11] MEDS ORDERED: Iohexol 350 MG/100 ML VIAL ONE (09:40)
[2017-06-11] MEDS ORDERED: Iohexol 240 (50 ml) ONE (09:40)
--- NOTE | 2017-06-11 10:31 | US ---
HISTORY: TESTICULAR PAIN TECHNIQUE: Realtime sonography through the scrotum with color and doppler flow. COMPARISON: None Available. FINDINGS: RIGHT TESTICLE: Measures 5.5 x 2.6 x 3.2 cm. Normal echotexture and flow. RIGHT EPIDIDYMIS: Epididymal head measures 0.9 x 0.8 x 0.9 cm. Grossly unremarkable appearance with normal flow. LEFT TESTICLE: Measures 5.1 x 2.1 x 2.7 cm. Normal echotexture and flow. LEFT EPIDIDYMIS: Epididymal head measures 1.1 x 0.6 x 0.7 cm. Grossly unremarkable appearance with normal flow. HYDROCELE: There are bilateral small hydroceles. VARICOCELE: There is left varicocele. OTHER FINDINGS: None. IMPRESSION: No evidence for testicular mass or torsion. Left varicocele.
[2017-06-11] MEDS: Cefepime 1gm in NS 100ml 1 GM/100 ML BAG IVPB SCH ×2 (10:46→22:47)
--- NOTE | 2017-06-11 11:27 | CP.PCM.PN ---
Subjective - Date & Time of Evaluation Date of Evaluation: 06/11/17 Time of Evaluation: 11:24 - Subjective Subjective: Surgery: Dr. Alvarez Pt seen and examined. Continues to have suprapubic abd pain, more prominent on R. Febrile overnight. Objective - Vital Signs/Intake and Output Vital Signs (last 24 hours): Temp Pulse Resp BP Pulse Ox 100.8 F H 88 18 119/63 95 06/11/17 08:22 06/11/17 08:22 06/11/17 08:22 06/11/17 08:22 06/11/17 08:22 Intake and Output: 06/11/17 06/11/17 06:59 18:59 Intake Total 1020 240 Output Total 350 1100 Balance 670 -860 - Medications Medications: Current Medications Heparin Sodium (Porcine) (Heparin) 5,000 units SC Q12 MIKE PRN Reason: Protocol Last Admin: 06/11/17 10:46 Dose: Not Given Sodium Chloride (Sodium Chloride 0.9%) 1,000 mls @ 100 mls/hr IV .Q10H [facility] Last Admin: 06/10/17 17:06 Dose: 100 mls/hr Cefepime HCl (Maxipime 1gm) 1 gm in 100 mls @ 100 mls/hr IVPB Q12 MIKE PRN Reason: Protocol Last Admin: 06/11/17 10:46 Dose: 100 mls/hr Ketorolac Tromethamine (Toradol) 30 mg IVP Q6H PRN PRN Reason: Pain, moderate (4-7) Last Admin: 06/11/17 05:35 Dose: 30 mg Ondansetron HCl (Zofran Inj) 4 mg IVP Q4H PRN PRN Reason: Nausea/Vomiting Pantoprazole Sodium (Protonix Ec Tab) 40 mg PO 0600 [facility] Last Admin: 06/11/17 05:36 Dose: 40 mg Pneumococcal Polyvalent Vaccine (Pneumovax 23 Vaccine) 0.5 ml IM .ONCE ONE Stop: 06/12/17 10:01 Tramadol HCl (Ultram) 25 mg PO Q6 PRN PRN Reason: Pain, severe (8-10) Last Admin: 06/11/17 10:48 Dose: 25 mg - Labs Labs: 06/11/17 06:20 06/11/17 06:20 - Constitutional Appears: Non-toxic, No Acute Distress - Head Exam Head Exam: ATRAUMATIC, NORMOCEPHALIC - Eye Exam Eye Exam: EOMI - ENT Exam ENT Exam: Mucous Membranes Moist - Respiratory Exam Respiratory Exam: NORMAL BREATHING PATTERN. absent: Accessory Muscle Use, Respiratory Distress - GI/Abdominal Exam GI & Abdominal Exam: Soft, Tenderness (Suprapubic R side), Rebound (mild). absent: Distended, Firm, Guarding, Rigid - Extremities Exam Extremities Exam: absent: Calf Tenderness, Pedal Edema - Neurological Exam Neurological Exam: Alert, Awake, Oriented x3 Assessment and Plan - Assessment and Plan (Free Text) Assessment: 26M w. suprapubic abd pain and transaminitis -will repeat CT w. PO and IV contrast, f/u results -c/w serial abd exams -c/w abx and pain management -trend LFTs -no plans for surgical intervention at this time -will pedro attending Zemaitis PGY3
--- NOTE | 2017-06-11 13:55 | CT ---
PROCEDURE: CT Abdomen and Pelvis with contrast HISTORY: Abdominal pain COMPARISON: Ultrasound and CT abdomen and pelvis from 06/10/2017. TECHNIQUE: CT scan of the abdomen and pelvis was performed after intravenous administration of contrast. Oral contrast was administered. Coronal and sagittal reformatted images were obtained. Radiation dose: Total exam DLP = 357.43 mGy-cm. This CT exam was performed using one or more of the following dose reduction techniques: Automated exposure control, adjustment of the mA and/or kV according to patient size, and/or use of iterative reconstruction technique. FINDINGS: LOWER THORAX: There is bibasilar subsegmental atelectasis and trace pleural effusions. LIVER: The liver is normal in size and there is homogeneous enhancement. No gross lesion or ductal dilatation. GALLBLADDER AND BILE DUCTS: The gallbladder is well distended. No calcified gallstones. There is small amount of pericholecystic fluid. PANCREAS: Normal in size and homogeneous enhancement. No gross lesion or ductal dilatation. SPLEEN: There is mild splenomegaly. ADRENALS: No discrete adrenal nodule. KIDNEYS AND URETERS: Both kidneys are normal in size and there is homogeneous enhancement without hydronephrosis. No solid mass. VASCULATURE: No aortic aneurysm. BOWEL: The small bowel loops are normal in caliber. There is moderate amount of stool in the colon and rectum. No bowel dilatation or obstruction. APPENDIX: Normal appendix. PERITONEUM: Again seen is small amount of free fluid in the pelvis. No free air. LYMPH NODES: No enlarged lymph nodes. BLADDER: Normal in appearance. REPRODUCTIVE: Unremarkable. BONES: No acute fracture. Within normal limits for the patient's age. OTHER FINDINGS: None. IMPRESSION: 1. Well distended gallbladder. No calcified gallstones. Mild pericholecystic fluid of uncertain etiology. 2. Redemonstration of small amount of free fluid in the pelvis of uncertain etiology and abnormal for male patient. 3. Constipation. No evidence of bowel obstruction. 4. Trace pleural effusions and subsegmental atelectasis in the lung bases
--- NOTE | 2017-06-11 16:48 | CP.PCM.PN ---
Addendum entered and electronically signed by Navdeep Salas DO 06/12/17 06: 51: Patient did not recently take Zyvox which was stated in the Assessment and Plan. Original Note: <Navdeep Salas - Last Filed: 06/11/17 17:05> Subjective - Date & Time of Evaluation Date of Evaluation: 06/11/17 Time of Evaluation: 10:45 - Subjective Subjective: Patient was seen and examined at bedside. The patient continues to report the suprapubic pain he initially had. The patient was also reporting some subjective testicular swelling. The patient denies chest pain, abdominal pain, shortness of breath, headache, sore throat, congestion, ear pain, constipation, diarrhea, numbness or tingling in his hand or feet, or any other complaints. Objective - Vital Signs/Intake and Output Vital Signs (last 24 hours): Temp Pulse Resp BP Pulse Ox 100.0 F H 82 20 115/67 100 06/11/17 16:12 06/11/17 16:12 06/11/17 16:12 06/11/17 16:12 06/11/17 16:12 Intake and Output: 06/11/17 06/11/17 06:59 18:59 Intake Total 1020 2240 Output Total 350 2750 Balance 670 -510 - Medications Medications: Current Medications Heparin Sodium (Porcine) (Heparin) 5,000 units SC Q12 [facility] PRN Reason: Protocol Last Admin: 06/11/17 10:46 Dose: Not Given Sodium Chloride (Sodium Chloride 0.9%) 1,000 mls @ 100 mls/hr IV .Q10H [facility] Last Admin: 06/10/17 17:06 Dose: 100 mls/hr Cefepime HCl (Maxipime 1gm) 1 gm in 100 mls @ 100 mls/hr IVPB Q12 [facility] PRN Reason: Protocol Last Admin: 06/11/17 10:46 Dose: 100 mls/hr Ketorolac Tromethamine (Toradol) 30 mg IVP Q6H PRN PRN Reason: Pain, moderate (4-7) Last Admin: 06/11/17 05:35 Dose: 30 mg Ondansetron HCl (Zofran Inj) 4 mg IVP Q4H PRN PRN Reason: Nausea/Vomiting Pantoprazole Sodium (Protonix Ec Tab) 40 mg PO 0600 [facility] Last Admin: 06/11/17 05:36 Dose: 40 mg Pneumococcal Polyvalent Vaccine (Pneumovax 23 Vaccine) 0.5 ml IM .ONCE ONE Stop: 06/12/17 10:01 Tramadol HCl (Ultram) 25 mg PO Q4 PRN PRN Reason: Pain, severe (8-10) - Labs Labs: 06/11/17 06:20 06/11/17 06:20 - Head Exam Head Exam: ATRAUMATIC, NORMAL INSPECTION, NORMOCEPHALIC - Eye Exam Eye Exam: EOMI, Normal appearance, PERRL. absent: Periorbital tenderness Pupil Exam: NORMAL ACCOMODATION, PERRL. absent: Irregular, Miosis - ENT Exam ENT Exam: Mucous Membranes Moist, Normal Oropharynx - Neck Exam Neck Exam: Normal Inspection. absent: Lymphadenopathy, Thyromegaly - Respiratory Exam Respiratory Exam: Clear to Ausculation Bilateral, NORMAL BREATHING PATTERN. absent: Accessory Muscle Use, Prolonged Expiratory Phase - Cardiovascular Exam Cardiovascular Exam: REGULAR RHYTHM, RRR, +S1, +S2. absent: Gallop, Rubs - GI/Abdominal Exam GI & Abdominal Exam: Soft, Normal Bowel Sounds. absent: Rigid, Tenderness - Exam Exam: absent: Scrotal Swelling, Testicular Tenderness, Uretheral Discharge - Extremities Exam Extremities Exam: Full ROM - Back Exam Back Exam: NORMAL INSPECTION. absent: CVA tenderness (L), CVA tenderness (R), paraspinal tenderness - Neurological Exam Neurological Exam: Alert, Awake, CN II-XII Intact, Normal Gait - Psychiatric Exam Psychiatric exam: Normal Affect, Normal Mood. absent: Depressed, Flat Affect, Suicidal Ideation - Skin Skin Exam: Dry, Intact. absent: Mottled, Rash, Vesicles Assessment and Plan - Assessment and Plan (Free Text) Assessment: 26 yo M with no PMH presents with abdominal pain and history of fever, noted to have free fluid in pelvis on CT. Plan: 1. Abdominal pain w/free fluid in pelvis 2/2 appendicitis vs prostatitis vs cystitis vs peritonitis - Patient presented with suprapubic abdominal pain x4d duration, afebrile at the time - CT abd/pelv showed free fluid collection in pelvis, nonvisualized appendix, and fatty liver - UA normal - BCx preliminary results are negative and Urine Cx negative. - Hep panel and HIV screen negative. Acetaminophen level is negative. - Continue Cefepime. - Ibuprofen for fevers - Surgery consulted. Rec's appreciated. - ID consulted. Rec's appreciated. - Continue liquid diet. Advance diet as patient tolerates it. - Continue to monitor 2.Transaminitis -AST 227 AND ALT 233. -Possibly due to previous Zyvox antibiotic he recently took. -Will continue to closely monitor with serial cmp's. -GI consulted. Will follow up with rec's. GI/DVT Ppx -Continue Protonix and Heparin. <Bk GATES,Delmis - Last Filed: 06/12/17 12:24> Objective - Vital Signs/Intake and Output Vital Signs (last 24 hours): Temp Pulse Resp BP Pulse Ox 98.4 F 68 18 109/60 96 06/12/17 08:11 06/12/17 08:11 06/12/17 08:11 06/12/17 08:11 06/12/17 08:11 Intake and Output: 06/12/17 06/12/17 06:59 18:59 Output Total 2400 Balance -2400 - Medications Medications: Current Medications Heparin Sodium (Porcine) (Heparin) 5,000 units SC Q12 MIKE PRN Reason: Protocol Last Admin: 06/12/17 09:36 Dose: 5,000 units Sodium Chloride (Sodium Chloride 0.9%) 1,000 mls @ 100 mls/hr IV .Q10H [facility] Last Admin: 06/11/17 19:05 Dose: 100 mls/hr Cefepime HCl (Maxipime 1gm) 1 gm in 100 mls @ 100 mls/hr IVPB Q12 [facility]KE PRN Reason: Protocol Last Admin: 06/12/17 09:33 Dose: 100 mls/hr Ketorolac Tromethamine (Toradol) 30 mg IVP Q6H PRN PRN Reason: Pain, moderate (4-7) Last Admin: 06/11/17 22:58 Dose: 30 mg Ondansetron HCl (Zofran Inj) 4 mg IVP Q4H PRN PRN Reason: Nausea/Vomiting Pantoprazole Sodium (Protonix Ec Tab) 40 mg PO 0600 [facility] Last Admin: 06/12/17 07:59 Dose: 40 mg Tramadol HCl (Ultram) 25 mg PO Q4 PRN PRN Reason: Pain, severe (8-10) Last Admin: 06/11/17 21:53 Dose: 25 mg - Labs Labs: 06/12/17 07:10 06/12/17 07:10 Attending/Attestation - Attestation I have personally seen and examined this patient.: Yes I have fully participated in the care of the patient.: Yes I have reviewed all pertinent clinical information, including history, physical exam and plan: Yes Notes (Text): 06/12/17 12:21 Patient was seen and examined with medical practice administrator. Agreed with resident assessment and plan. 26 yo male with no PMH was admitted with increasing abdominal pain and fevers up to 102.0 F over the past 4 days. The patient with vague findings in the imaging studies of the abdomen. Hepatitis screen was negative for A, B, and C. .Patient still has lower abdominal tenderness.LFT are getting worse.Patient does not look toxic.He is on IV antibiotics as per ID, no acute surgical issue at this time as per Surgery.We will monitor LFT and will get GI consult. Management plan was discussed in detail with patient Education was provided.
[2017-06-11] MEDS: Sodium Chloride 0.9% 1,000 ML IV SCH (19:05)
--- NOTE | 2017-06-11 21:08 | CP.PCM.PN ---
Subjective - Date & Time of Evaluation Date of Evaluation: 06/11/17 Time of Evaluation: 20:00 - Subjective Subjective: Infectious Disease Follow Up: June 11, 2017 26 yo male presenting with worsening lower abdominal and suprapubic pain starting 2 days ago. Initially started with earaches and fevers up to 102 F. This started 4 days ago. He was given Amoxicillin through an Urgent care without any relief. The patient has no significant medical history. Seen by surgery. Free fluid in the abdominal ultrasound. Increased echogenecity in the liver on CT scan. Patient complaining mostly of suprapubic pain around the right groin. Remains on Cefepime and Flagyl for antibiotic coverage. Repeat CT scan shows slightly increased distension of the gallbladder. No specific inflammation of the intestines. Testicular ultrasound is showing left varicocele but no mass or torsion. Fevers appear to have downtrended from 103.1 F 24 hours ago to about 101.0 F today. Cultures negative to date. Chlamydia testing is still pending. Procalitonin is nonspecific. Objective - Vital Signs/Intake and Output Vital Signs (last 24 hours): Temp Pulse Resp BP Pulse Ox 100.0 F H 82 20 115/67 100 06/11/17 16:12 06/11/17 16:12 06/11/17 16:12 06/11/17 16:12 06/11/17 16:12 Intake and Output: 06/11/17 06/12/17 18:59 06:59 Intake Total 2240 Output Total 2750 Balance -510 - Medications Medications: Current Medications Heparin Sodium (Porcine) (Heparin) 5,000 units SC Q12 [facility]KE PRN Reason: Protocol Last Admin: 06/11/17 10:46 Dose: Not Given Sodium Chloride (Sodium Chloride 0.9%) 1,000 mls @ 100 mls/hr IV .Q10H [facility] Last Admin: 06/11/17 19:05 Dose: 100 mls/hr Cefepime HCl (Maxipime 1gm) 1 gm in 100 mls @ 100 mls/hr IVPB Q12 [facility] PRN Reason: Protocol Last Admin: 06/11/17 10:46 Dose: 100 mls/hr Ketorolac Tromethamine (Toradol) 30 mg IVP Q6H PRN PRN Reason: Pain, moderate (4-7) Last Admin: 06/11/17 05:35 Dose: 30 mg Ondansetron HCl (Zofran Inj) 4 mg IVP Q4H PRN PRN Reason: Nausea/Vomiting Pantoprazole Sodium (Protonix Ec Tab) 40 mg PO 0600 [facility] Last Admin: 06/11/17 05:36 Dose: 40 mg Pneumococcal Polyvalent Vaccine (Pneumovax 23 Vaccine) 0.5 ml IM .ONCE ONE Stop: 06/12/17 10:01 Tramadol HCl (Ultram) 25 mg PO Q4 PRN PRN Reason: Pain, severe (8-10) Last Admin: 06/11/17 17:00 Dose: 25 mg - Labs Labs: 06/11/17 06:20 06/11/17 06:20 - Constitutional Appears: Non-toxic, No Acute Distress - Head Exam Head Exam: ATRAUMATIC, NORMOCEPHALIC - Eye Exam Eye Exam: EOMI, PERRL Pupil Exam: NORMAL ACCOMODATION, PERRL - ENT Exam ENT Exam: Mucous Membranes Moist, Normal External Ear Exam, TM's Normal Bilaterally - Neck Exam Neck Exam: Full ROM, Normal Inspection - Respiratory Exam Respiratory Exam: Clear to Ausculation Bilateral, NORMAL BREATHING PATTERN. absent: Rales, Rhonchi, Wheezes - Cardiovascular Exam Cardiovascular Exam: REGULAR RHYTHM, RRR, +S1, +S2 - GI/Abdominal Exam GI & Abdominal Exam: Soft, Tenderness, Normal Bowel Sounds. absent: Distended Additional comments: suprapubic tenderness - Extremities Exam Extremities Exam: Full ROM, Normal Inspection - Neurological Exam Neurological Exam: Alert, Awake, CN II-XII Intact, Oriented x3 - Psychiatric Exam Psychiatric exam: Normal Affect, Normal Mood - Skin Skin Exam: Intact, Normal Color Assessment and Plan - Assessment and Plan (Free Text) Assessment: 26 yo male with increasing abdominal pain and fevers up to 102.0 F over the past 4 days. The patient with vague findings in the imaging studies of the abdomen. Hepatitis screen was negative for A, B, and C. The patient with mild elevation of the LFTs. [place] cultures sent. No leukocytosis. No specific findings in the urinalysis. Started on Cefepime and Flagyl for now. Free fluid in the abdomen as seen by Ultrasound. Fevers up to 103.1 F in past 24 hours. Fevers up to 101 F in the past 12 hours. Cannot rule out peritonitis and perforation. Supportive care. He is sexually active. Recently in [place] 2 months ago. Most of the pain is in the suprapubic area now. Remains on Cefepime and Flagyl at this time. Awaiting Chlamydia testing to return. Testicular ultrasound shows a left varicocele. Thank you for allowing me to participate in the care of the patient, we will follow with you.
--- NOTE | 2017-06-11 21:19 | CON ---
GASTROENTEROLOGY CONSULTATION DATE: 06/11/2017 REQUESTING PHYSICIAN: . HISTORY OF PRESENT ILLNESS: I have been asked to see this 26-year-old male, who comes to the hospital with fever for 4 days followed by an increasing suprapubic abdominal pain. He denies any dysuria, urgency, frequency, or hematuria. Radiographic imaging including CT scan of the abdomen and pelvis revealed fatty liver as well as some fluid in the pelvis, sonogram of the abdomen revealed again fatty liver. Testicular ultrasound showed bilateral varicoceles without any evidence of testicular torsion. The patient was seen in a medical clinic on Tuesday for pressure in his right ear. He was told he had excess cerumen in the right ear and given antibiotics. He comes to the hospital with increasing suprapubic pain. Past medical history is unremarkable. Family history is notable for father with lung cancer. SOCIAL HISTORY: He drinks 8-10 beers on weekends. He denies cigarette smoking or illicit drug use. REVIEW OF SYSTEMS: A 14 point review of systems is notable for increasing suprapubic pain and fever. PHYSICAL EXAMINATION GENERAL: Well-developed male lying in bed in no acute distress. VITAL SIGNS: Reveal temperature 100.8, blood pressure 119/63, heart rate of 88. HEENT: Reveal sclerae to be white. Conjunctivae pink. NECK: Supple. CHEST: Reveal lungs to be clear. HEART: Exam reveals a regular rate and rhythm. ABDOMEN: Soft. There is exquisite tenderness in the suprapubic region with some voluntary guarding. EXTREMITIES: Show no edema. LABORATORY DATA: Reveal white blood cell count 6.8, hemoglobin 11.8. Chemistries reveal AST 227, ALT 233, potassium of 3.5. Serology show negative hepatitis serology, negative HIV, negative influenza, nonreactive RPR. IMPRESSION: A 26-year-old male with suprapubic pain, fever, some fluid in the pelvis on CT scan with a negative urinalysis; however, the patient was treated with amoxicillin earlier in the week, one must rule out cystitis , the etiology of fluid in the pelvis is unclear. RECOMMENDATIONS 1. Would obtain urology evaluation. 2. The patient is to have a repeat CT of the abdomen and pelvis in the morning. Thank you Harpreet Jara MD [facility] # [id number]
[2017-06-12 07:25] LABS: BASO # 0.02 K/mm3 (0.0-2.0); BASO % 0.3 % (0.0-3.0); EOS # 0.2 (0.0-0.7); EOS % 2.4 % (1.5-5.0); GRAN # 3.56 (1.4-6.5); HEMATOCRIT 35.4 % (42.0-52.0); LYMPH # 1.6 (1.2-3.4); LYMPH % 25.5 % (22.0-35.0); MEAN CELL VOLUME 89.8 fl (80.0-105.0); MEAN CORPUSCULAR HEMOGLOBIN 29.2 pg (25.0-35.0); MEAN CORPUSCULAR HGB CONC 32.5 g/dl (31.0-37.0); MEAN PLATELET VOLUME 10.2 fl (7.0-11.0); MONO # 0.9 (0.1-0.6); MONO % 13.8 % (1.0-6.0); RED CELL DISTRIBUTION WIDTH 13.4 % (11.5-14.5); WHITE BLOOD COUNT 6.2 10^3/ul (4.5-11.0)
[2017-06-12 07:37] LABS: ALB/GLOB RATIO 1.1 (1.1-1.8); ALKALINE PHOSPHATASE 82 U/L (38-126); ALT/SGPT 181 U/L (7-56); AST/SGOT 126 U/L (17-59); BILIRUBIN,TOTAL 0.5 mg/dL (0.2-1.3); BLOOD UREA NITROGEN 8 mg/dL (7-21); CALCIUM 8.4 mg/dL (8.4-10.5); CARBON DIOXIDE 27 mmol/L (21-33); CHLORIDE 103 mmol/L (98-107); GFR AFRICAN-AMERICAN > 60; GLUCOSE,RANDOM 91 mg/dL (70-110); POTASSIUM 4.1 mmol/L (3.6-5.0); SODIUM 138 mmol/L (132-148); TOTAL PROTEIN 6.2 g/dL (5.8-8.3)
[2017-06-12] MEDS: Pantoprazole 40 mg EC Tab PO SCH (07:59)
--- NOTE | 2017-06-12 08:05 | CP.PCM.PN ---
Subjective - Date & Time of Evaluation Date of Evaluation: 06/12/17 Time of Evaluation: 08:02 - Subjective Subjective: Surgery: Dr. Alvarez Pt seen and examined. He states that suprapubic pain and RUQ pain persists, but it is slightly improved compared to yesterday. Low grade fever yesterday throughout the day. No N/V/D. Objective - Vital Signs/Intake and Output Vital Signs (last 24 hours): Temp Pulse Resp BP Pulse Ox 100.0 F H 82 20 115/67 100 06/11/17 16:12 06/11/17 16:12 06/11/17 16:12 06/11/17 16:12 06/11/17 16:12 Intake and Output: 06/12/17 06/12/17 06:59 18:59 Output Total 2400 Balance -2400 - Medications Medications: Current Medications Heparin Sodium (Porcine) (Heparin) 5,000 units SC Q12 MIKE PRN Reason: Protocol Last Admin: 06/11/17 22:00 Dose: 5,000 units Sodium Chloride (Sodium Chloride 0.9%) 1,000 mls @ 100 mls/hr IV .Q10H [facility] Last Admin: 06/11/17 19:05 Dose: 100 mls/hr Cefepime HCl (Maxipime 1gm) 1 gm in 100 mls @ 100 mls/hr IVPB Q12 [facility]KE PRN Reason: Protocol Last Admin: 06/11/17 22:47 Dose: 100 mls/hr Ketorolac Tromethamine (Toradol) 30 mg IVP Q6H PRN PRN Reason: Pain, moderate (4-7) Last Admin: 06/11/17 22:58 Dose: 30 mg Ondansetron HCl (Zofran Inj) 4 mg IVP Q4H PRN PRN Reason: Nausea/Vomiting Pantoprazole Sodium (Protonix Ec Tab) 40 mg PO 0600 [facility] Last Admin: 06/12/17 07:59 Dose: 40 mg Pneumococcal Polyvalent Vaccine (Pneumovax 23 Vaccine) 0.5 ml IM .ONCE ONE Stop: 06/12/17 10:01 Tramadol HCl (Ultram) 25 mg PO Q4 PRN PRN Reason: Pain, severe (8-10) Last Admin: 06/11/17 21:53 Dose: 25 mg - Labs Labs: 06/12/17 07:10 06/12/17 07:10 - Constitutional Appears: Non-toxic, No Acute Distress - Head Exam Head Exam: ATRAUMATIC, NORMOCEPHALIC - Eye Exam Eye Exam: EOMI. absent: Scleral icterus - ENT Exam ENT Exam: Mucous Membranes Moist, Normal External Ear Exam - Respiratory Exam Respiratory Exam: NORMAL BREATHING PATTERN. absent: Accessory Muscle Use, Respiratory Distress - GI/Abdominal Exam GI & Abdominal Exam: Soft, Tenderness (suprapubic R side, RUQ). absent: Distended, Firm, Guarding, Rigid, Rebound - Extremities Exam Extremities Exam: absent: Calf Tenderness, Pedal Edema - Neurological Exam Neurological Exam: Alert, Awake, Oriented x3 - Psychiatric Exam Psychiatric exam: Normal Affect, Normal Mood Assessment and Plan - Assessment and Plan (Free Text) Assessment: 26M w. abd pain and transaminitis -LFTs trending down, continue to monitor -c/w abx -c/w pain management -serial abd exams -no plans for surgical intervention at current time -will d/w attending Zemaitis PGY3
[2017-06-12] MEDS: Cefepime 1gm in NS 100ml 1 GM/100 ML BAG IVPB SCH ×2 (09:33→21:46)
[2017-06-12] MEDS ORDERED: Pneumococcal 23-Valent Vaccine IM ONE (10:00)
--- NOTE | 2017-06-12 11:22 | PN ---
DATE: 06/12/2017 SUBJECTIVE: The patient is lying in bed. He is feeling better with less suprapubic pain. He denies any hematuria or dysuria. PHYSICAL EXAMINATION: VITAL SIGNS: Reveal temperature of 98.4, blood pressure of 109/60, and heart rate of 68. GASTROINTESTINAL: Abdomen is soft with a left suprapubic tenderness. LABORATORY DATA: Revealed white blood cell count of 6.2 and hemoglobin of 11.5. Electrolytes are normal and a liver enzymes are trending downward with AST of 126, ALT of 181, and procalcitonin is elevated at 0.74. CRP is elevated at greater than 15. Blood cultures were all negative. DIAGNOSTIC DATA: Repeat CT scan of the abdomen and pelvis is essentially unchanged with some free fluid in the pelvis. IMPRESSION: He is a 26-year-old male with several days of fever and suprapubic pain with negative cultures, elevated liver enzymes which would trending downward, etiology of the suprapubic pain is unclear. The repeat CT scan does show some constipation. He has not had a bowel movement in about 3 days. RECOMMENDATIONS 1. Continue current treatment including IV antibiotics. 2. We will increase the patient's MiraLax to 17 grams. Harpreet Jara MD
--- NOTE | 2017-06-12 12:45 | CP.PCM.PN ---
<JosueJosen - Last Filed: 06/12/17 12:48> Subjective - Date & Time of Evaluation Date of Evaluation: 06/12/17 Time of Evaluation: 07:42 - Subjective Subjective: Patient was seen and examined at bedside. The patient reports feeling better than yesterday. The patient also reports that when trying to ambulate from laying down to sit up or go to the bathroom he reports severe pain that he rates a 9/10 in severity. The patient is also still reporting suprapubic pain. The patient denies any chest pain, shortness of breath, nausea, vomiting, changes in vision, headache, diarrhea or any other complaints. Objective - Vital Signs/Intake and Output Vital Signs (last 24 hours): Temp Pulse Resp BP Pulse Ox 98.4 F 68 18 109/60 96 06/12/17 08:11 06/12/17 08:11 06/12/17 08:11 06/12/17 08:11 06/12/17 08:11 Intake and Output: 06/12/17 06/12/17 06:59 18:59 Output Total 2400 Balance -2400 - Medications Medications: Current Medications Heparin Sodium (Porcine) (Heparin) 5,000 units SC Q12 [facility]KE PRN Reason: Protocol Last Admin: 06/12/17 09:36 Dose: 5,000 units Sodium Chloride (Sodium Chloride 0.9%) 1,000 mls @ 100 mls/hr IV .Q10H [facility] Last Admin: 06/11/17 19:05 Dose: 100 mls/hr Cefepime HCl (Maxipime 1gm) 1 gm in 100 mls @ 100 mls/hr IVPB Q12 [facility] PRN Reason: Protocol Last Admin: 06/12/17 09:33 Dose: 100 mls/hr Ketorolac Tromethamine (Toradol) 30 mg IVP Q6H PRN PRN Reason: Pain, moderate (4-7) Last Admin: 06/11/17 22:58 Dose: 30 mg Ondansetron HCl (Zofran Inj) 4 mg IVP Q4H PRN PRN Reason: Nausea/Vomiting Pantoprazole Sodium (Protonix Ec Tab) 40 mg PO 0600 [facility] Last Admin: 06/12/17 07:59 Dose: 40 mg Tramadol HCl (Ultram) 25 mg PO Q4 PRN PRN Reason: Pain, severe (8-10) Last Admin: 06/11/17 21:53 Dose: 25 mg - Labs Labs: 06/12/17 07:10 06/12/17 07:10 - Head Exam Head Exam: ATRAUMATIC, NORMAL INSPECTION, NORMOCEPHALIC - Eye Exam Eye Exam: EOMI, Normal appearance, PERRL. absent: Periorbital tenderness Pupil Exam: NORMAL ACCOMODATION, PERRL. absent: Irregular - ENT Exam ENT Exam: Mucous Membranes Moist. absent: Normal Oropharynx - Neck Exam Neck Exam: Normal Inspection. absent: Lymphadenopathy, Thyromegaly - Respiratory Exam Respiratory Exam: Clear to Ausculation Bilateral, NORMAL BREATHING PATTERN. absent: Accessory Muscle Use, Chest Wall Tenderness - Cardiovascular Exam Cardiovascular Exam: REGULAR RHYTHM, RRR, +S1, +S2. absent: Gallop, Rubs - GI/Abdominal Exam GI & Abdominal Exam: Soft, Normal Bowel Sounds. absent: Tenderness Additional comments: Suprapubic pain appreciated. - Extremities Exam Extremities Exam: Full ROM, Normal Inspection. absent: Joint Swelling, Pedal Edema - Back Exam Back Exam: NORMAL INSPECTION. absent: CVA tenderness (L), CVA tenderness (R), paraspinal tenderness - Neurological Exam Neurological Exam: Alert, Awake, CN II-XII Intact, Normal Gait, Oriented x3 - Psychiatric Exam Psychiatric exam: Normal Affect, Normal Mood. absent: Depressed - Skin Skin Exam: Dry, Intact Assessment and Plan - Assessment and Plan (Free Text) Assessment: 26 yo M with no PMH presents with abdominal pain and history of fever, noted to have free fluid in pelvis on CT. Plan: 1. Abdominal pain w/free fluid in pelvis 2/2 appendicitis vs prostatitis vs cystitis vs peritonitis - Patient presented with suprapubic abdominal pain x4d duration, afebrile at the time - CT abd/pelv showed free fluid collection in pelvis, nonvisualized appendix, and fatty liver - UA normal - BCx preliminary results are negative and Urine Cx negative. - Hep panel and HIV screen negative. Acetaminophen level is negative. - Continue Cefepime. - Ibuprofen for fevers - Surgery consulted. Rec's appreciated. - ID consulted. Rec's appreciated. -Urology consulted. F/U with rec's. - Liquid diet tolerated. Soft diet ordered. Advance diet as patient tolerates it. - Continue to monitor 2.Transaminitis -AST 126 AND ALT 181. Trending down. Continue to monitor with serial cmp's. -Possibly due to previous antibiotic he recently took. -GI consult rec's appreciated. GI/DVT Ppx -Continue Protonix and Heparin. <Delmis Bourgeois MD - Last Filed: 06/20/17 14:00> Objective - Vital Signs/Intake and Output Vital Signs (last 24 hours): Temp Pulse Resp BP Pulse Ox 99.2 F 93 H 19 99/65 L 97 06/20/17 08:00 06/20/17 08:00 06/20/17 08:00 06/20/17 08:00 06/20/17 08:00 Intake and Output: 06/20/17 06/20/17 06:59 18:59 Intake Total 420 Output Total 500 Balance -80 - Medications Medications: Current Medications Docusate Sodium (Colace) 100 mg PO DAILY [facility] Last Admin: 06/20/17 09:31 Dose: 100 mg Doxycycline Hyclate (Doryx) 100 mg PO Q12 [facility] PRN Reason: Protocol Last Admin: 06/20/17 09:31 Dose: 100 mg Heparin Sodium (Porcine) (Heparin) 5,000 units SC Q8 [facility] PRN Reason: Protocol Last Admin: 06/20/17 06:24 Dose: 5,000 units Ibuprofen (Motrin Tab) 800 mg PO Q6H PRN PRN Reason: Fever >100.4 F Last Admin: 06/18/17 23:43 Dose: 800 mg Ondansetron HCl (Zofran Inj) 4 mg IVP Q4H PRN PRN Reason: Nausea/Vomiting Oxycodone HCl (Oxycodone Immediate Release Tab) 10 mg PO Q6H PRN PRN Reason: Pain, severe (8-10) Pantoprazole Sodium (Protonix Ec Tab) 40 mg PO 0600 [facility] Last Admin: 06/20/17 06:23 Dose: 40 mg Tamsulosin HCl (Flomax) 0.4 mg PO DAILY [facility] Last Admin: 06/20/17 09:31 Dose: 0.4 mg - Labs Labs: 06/20/17 07:33 06/20/17 07:33 Attending/Attestation - Attestation I have personally seen and examined this patient.: Yes I have fully participated in the care of the patient.: Yes I have reviewed all pertinent clinical information, including history, physical exam and plan: Yes Notes (Text): 06/20/17 13:59 Patient was seen and examined with medical technologist microbiology. Agreed with resident assessment and plan. 26 yo male with no PMH was admitted lower abdominal pain and fevers up to 102.0 F over the past 4 days,CT scan showed fluid in Pelvis, and also has elevated LFT, etiology unclear, could be viral infection, , LFT are coming down, . Patient is still having Pubic area pain, fro MRI of Pelvis today, we will follow up results. Management plan was discussed in detail with patient Education was provided.
[2017-06-12] MEDS: Sodium Chloride 0.9% 1,000 ML IV SCH (17:16)
--- NOTE | 2017-06-12 18:25 | CP.PCM.PN ---
Subjective - Date & Time of Evaluation Date of Evaluation: 06/12/17 Time of Evaluation: 15:15 - Subjective Subjective: Infectious Disease Follow Up: June 12, 2017 26 yo male presenting with worsening lower abdominal and suprapubic pain starting 2 days ago. Initially started with earaches and fevers up to 102 F. This started 4 days ago. He was given Amoxicillin through an Urgent care without any relief. The patient has no significant medical history. Seen by surgery. Free fluid in the abdominal ultrasound. Increased echogenecity in the liver on CT scan. Patient complaining mostly of suprapubic pain around the right groin. Remains on Cefepime and Flagyl for antibiotic coverage. Repeat CT scan shows slightly increased distension of the gallbladder. No specific inflammation of the intestines. Testicular ultrasound is showing left varicocele but no mass or torsion. Fevers appear to have downtrended with maximum recorded temperature today of 100.0 F. Cultures negative to date. Chlamydia testing is still pending. Procalcitonin is nonspecific. Objective - Vital Signs/Intake and Output Vital Signs (last 24 hours): Temp Pulse Resp BP Pulse Ox 98.4 F 68 18 109/60 96 06/12/17 08:11 06/12/17 08:11 06/12/17 08:11 06/12/17 08:11 06/12/17 08:11 Intake and Output: 06/12/17 06/12/17 06:59 18:59 Intake Total 1800 Output Total 2400 1250 Balance -2400 550 - Medications Medications: Current Medications Docusate Sodium (Colace) 100 mg PO DAILY [facility] Last Admin: 06/12/17 17:12 Dose: 100 mg Heparin Sodium (Porcine) (Heparin) 5,000 units SC Q12 [facility] PRN Reason: Protocol Last Admin: 06/12/17 09:36 Dose: 5,000 units Sodium Chloride (Sodium Chloride 0.9%) 1,000 mls @ 100 mls/hr IV .Q10H [facility] Last Admin: 06/12/17 17:16 Dose: 100 mls/hr Cefepime HCl (Maxipime 1gm) 1 gm in 100 mls @ 100 mls/hr IVPB Q12 [facility] PRN Reason: Protocol Last Admin: 06/12/17 09:33 Dose: 100 mls/hr Doxycycline Hyclate 100 mg/ (Sodium Chloride) 100 mls @ 100 mls/hr IVPB Q12 [facility] PRN Reason: Protocol Ketorolac Tromethamine (Toradol) 30 mg IVP Q6H PRN PRN Reason: Pain, moderate (4-7) Last Admin: 06/11/17 22:58 Dose: 30 mg Ondansetron HCl (Zofran Inj) 4 mg IVP Q4H PRN PRN Reason: Nausea/Vomiting Pantoprazole Sodium (Protonix Ec Tab) 40 mg PO 0600 [facility] Last Admin: 06/12/17 07:59 Dose: 40 mg Tramadol HCl (Ultram) 50 mg PO Q6 PRN PRN Reason: Pain, severe (8-10) - Labs Labs: 06/12/17 07:10 06/12/17 07:10 - Constitutional Appears: Non-toxic, No Acute Distress - Head Exam Head Exam: ATRAUMATIC, NORMOCEPHALIC - Eye Exam Eye Exam: EOMI, PERRL Pupil Exam: NORMAL ACCOMODATION, PERRL - ENT Exam ENT Exam: Mucous Membranes Moist, Normal External Ear Exam, TM's Normal Bilaterally - Neck Exam Neck Exam: Full ROM, Normal Inspection - Respiratory Exam Respiratory Exam: Clear to Ausculation Bilateral, NORMAL BREATHING PATTERN. absent: Rales, Rhonchi, Wheezes - Cardiovascular Exam Cardiovascular Exam: REGULAR RHYTHM, RRR, +S1, +S2 - GI/Abdominal Exam GI & Abdominal Exam: Soft, Tenderness, Normal Bowel Sounds. absent: Distended Additional comments: suprapubic tenderness - Extremities Exam Extremities Exam: Full ROM, Normal Inspection - Neurological Exam Neurological Exam: Alert, Awake, CN II-XII Intact, Oriented x3 - Psychiatric Exam Psychiatric exam: Normal Affect, Normal Mood - Skin Skin Exam: Intact, Normal Color Assessment and Plan - Assessment and Plan (Free Text) Assessment: 26 yo male with increasing abdominal pain and fevers up to 102.0 F over the past 4 days. The patient with vague findings in the imaging studies of the abdomen. Hepatitis screen was negative for A, B, and C. The patient with mild elevation of the LFTs. [place] cultures sent. No leukocytosis. No specific findings in the urinalysis. Started on Cefepime and Flagyl for now. Free fluid in the abdomen as seen by Ultrasound. No reported fevers in the past 24 hours but temperature did reach 100.0 F. Supportive care. He is sexually active. Recently in [facility] 2 months ago. Most of the pain is in the suprapubic area now. Remains on Cefepime and Flagyl at this time. Awaiting Chlamydia testing to return. Testicular ultrasound shows a left varicocele. No reaction to Cefepime. Awaiting urology evaluation. Thank you for allowing me to participate in the care of the patient, we will follow with you.
[2017-06-13] MEDS: Pantoprazole 40 mg EC Tab PO SCH (05:00)
[2017-06-13 06:12] LABS: BASO # 0.03 K/mm3 (0.0-2.0); BASO % 0.5 % (0.0-3.0); EOS # 0.2 (0.0-0.7); EOS % 3.7 % (1.5-5.0); GRAN # 3.52 (1.4-6.5); GRAN % 58.7 % (50.0-68.0); HEMATOCRIT 34.7 % (42.0-52.0); LYMPH # 1.6 (1.2-3.4); LYMPH % 26.2 % (22.0-35.0); MEAN CORPUSCULAR HEMOGLOBIN 29.2 pg (25.0-35.0); MEAN CORPUSCULAR HGB CONC 32.9 g/dl (31.0-37.0); MEAN PLATELET VOLUME 9.9 fl (7.0-11.0); MONO # 0.7 (0.1-0.6); MONO % 10.9 % (1.0-6.0); RED CELL DISTRIBUTION WIDTH 13.4 % (11.5-14.5)
[2017-06-13 06:37] LABS: ALB/GLOB RATIO 1.1 (1.1-1.8); ALKALINE PHOSPHATASE 79 U/L (38-126); ALT/SGPT 126 U/L (7-56); AST/SGOT 70 U/L (17-59); BILIRUBIN,TOTAL 0.5 mg/dL (0.2-1.3); BLOOD UREA NITROGEN 10 mg/dL (7-21); CALCIUM 8.3 mg/dL (8.4-10.5); CARBON DIOXIDE 28 mmol/L (21-33); CHLORIDE 105 mmol/L (98-107); GFR AFRICAN-AMERICAN > 60; GLUCOSE,RANDOM 93 mg/dL (70-110); SODIUM 140 mmol/L (132-148); TOTAL PROTEIN 6.1 g/dL (5.8-8.3)
[2017-06-13] MEDS: Cefepime 1gm in NS 100ml 1 GM/100 ML BAG IVPB SCH ×2 (10:08→23:11)
--- NOTE | 2017-06-13 14:39 | CP.PCM.PN ---
<EvanIsaiah - Last Filed: 06/13/17 14:36> Subjective - Date & Time of Evaluation Date of Evaluation: 06/13/17 Time of Evaluation: 14:36 - Subjective Subjective: Medicine Progress note. Dr. Crain Pt seen and examined at bedside. No acute events overnight. Patient states that he still ambulates with pain. Denies N/V/D. Abd pain improved mildly. No urinary sxs. Had large BM this morning, normal stool characteristics. Denies F/ C overnight. no new complaints. Objective - Vital Signs/Intake and Output Vital Signs (last 24 hours): Temp Pulse Resp BP Pulse Ox 98.6 F 62 20 108/64 95 06/13/17 08:20 06/13/17 08:20 06/13/17 08:20 06/13/17 08:20 06/13/17 08:20 - Medications Medications: Current Medications Docusate Sodium (Colace) 100 mg PO DAILY [facility] Last Admin: 06/13/17 10:09 Dose: 100 mg Heparin Sodium (Porcine) (Heparin) 5,000 units SC Q12 [facility] PRN Reason: Protocol Last Admin: 06/13/17 10:09 Dose: 5,000 units Sodium Chloride (Sodium Chloride 0.9%) 1,000 mls @ 100 mls/hr IV .Q10H [facility] Last Admin: 06/12/17 17:16 Dose: 100 mls/hr Cefepime HCl (Maxipime 1gm) 1 gm in 100 mls @ 100 mls/hr IVPB Q12 [facility] PRN Reason: Protocol Last Admin: 06/13/17 10:08 Dose: 100 mls/hr Doxycycline Hyclate 100 mg/ (Sodium Chloride) 100 mls @ 100 mls/hr IVPB Q12 [facility] PRN Reason: Protocol Last Admin: 06/13/17 10:08 Dose: 100 mls/hr Ketorolac Tromethamine (Toradol) 30 mg IVP Q6H PRN PRN Reason: Pain, moderate (4-7) Last Admin: 06/13/17 14:26 Dose: 30 mg Ondansetron HCl (Zofran Inj) 4 mg IVP Q4H PRN PRN Reason: Nausea/Vomiting Pantoprazole Sodium (Protonix Ec Tab) 40 mg PO 0600 [facility] Last Admin: 06/13/17 05:00 Dose: 40 mg Tramadol HCl (Ultram) 50 mg PO Q6 PRN PRN Reason: Pain, severe (8-10) - Constitutional Appears: Well, No Acute Distress - Head Exam Head Exam: ATRAUMATIC, NORMAL INSPECTION, NORMOCEPHALIC - Eye Exam Eye Exam: EOMI - ENT Exam ENT Exam: Mucous Membranes Moist - Neck Exam Neck Exam: Full ROM - Respiratory Exam Respiratory Exam: Clear to Ausculation Bilateral, NORMAL BREATHING PATTERN. absent: Wheezes - Cardiovascular Exam Cardiovascular Exam: RRR, +S1, +S2. absent: JVD - GI/Abdominal Exam GI & Abdominal Exam: Soft. absent: Firm, Guarding, Rigid, Rebound Additional comments: Mild Tenderness to palpation in the RLQ and LLQ. - Extremities Exam Extremities Exam: Normal Inspection. absent: Calf Tenderness - Back Exam Back Exam: NORMAL INSPECTION - Neurological Exam Neurological Exam: Alert, Awake, Oriented x3 - Psychiatric Exam Psychiatric exam: Normal Affect, Normal Mood - Skin Skin Exam: Dry, Intact, Normal Color, Warm Assessment and Plan - Assessment and Plan (Free Text) Assessment: 26yo M with no significant PMHx here with Abd pain, Fever. CT Abd/Pelvis with evidence of free fluid in pelvis, distended GB 1. Abd pain CT Abd/Pelvis 06/10: Non visualized appy, Free fluid in pelvis CT Abd/Pelvis 923: Normal Appy, Free fluid in pelvis. Distended GB, No radiopaque stones Abd US: GB normal No leukocytosis. Now afebrile Testicular US: Left Varicocele. Normal left and right epididymis. Pain management GI Following, appreciate recs Surgery consulted no plans for any acute surgical intervention ID following, appreciate recs Continue IV Abx Doxy Cefepime Tolerating regular diet f/u MRI Abd/Pelvis 2. Left Vericocele Urology consulted, appreciate recs 3. Transaminitis Trending down consider due to recent abx use continue to monitor Hep panel negative 4. PPx Encourage IS use Encourage Ambulation Protonix SCDs Discussed case with Dr. Paras Gordon PGY1 <Cristobal Crain - Last Filed: 06/13/17 15:12> Objective - Vital Signs/Intake and Output Vital Signs (last 24 hours): Temp Pulse Resp BP Pulse Ox 98.6 F 62 20 108/64 95 06/13/17 08:20 06/13/17 08:20 06/13/17 08:20 06/13/17 08:20 06/13/17 08:20 - Medications Medications: Current Medications Docusate Sodium (Colace) 100 mg PO DAILY [facility] Last Admin: 06/13/17 10:09 Dose: 100 mg Heparin Sodium (Porcine) (Heparin) 5,000 units SC Q12 [facility] PRN Reason: Protocol Last Admin: 06/13/17 10:09 Dose: 5,000 units Sodium Chloride (Sodium Chloride 0.9%) 1,000 mls @ 100 mls/hr IV .Q10H [facility] Last Admin: 06/12/17 17:16 Dose: 100 mls/hr Cefepime HCl (Maxipime 1gm) 1 gm in 100 mls @ 100 mls/hr IVPB Q12 [facility] PRN Reason: Protocol Last Admin: 06/13/17 10:08 Dose: 100 mls/hr Doxycycline Hyclate 100 mg/ (Sodium Chloride) 100 mls @ 100 mls/hr IVPB Q12 [facility] PRN Reason: Protocol Last Admin: 06/13/17 10:08 Dose: 100 mls/hr Ketorolac Tromethamine (Toradol) 30 mg IVP Q6H PRN PRN Reason: Pain, moderate (4-7) Last Admin: 06/13/17 14:26 Dose: 30 mg Ondansetron HCl (Zofran Inj) 4 mg IVP Q4H PRN PRN Reason: Nausea/Vomiting Pantoprazole Sodium (Protonix Ec Tab) 40 mg PO 0600 [facility] Last Admin: 06/13/17 05:00 Dose: 40 mg Tramadol HCl (Ultram) 50 mg PO Q6 PRN PRN Reason: Pain, severe (8-10) Attending/Attestation - Attestation I have personally seen and examined this patient.: Yes I have fully participated in the care of the patient.: Yes I have reviewed all pertinent clinical information, including history, physical exam and plan: Yes Notes (Text): 06/13/17 15:09 26 year old male with no significant past medical history who presented with complaint of fever and lower abdominal pain. CT abd/pelvis showed free fluid in the pelvis. Testicular ultrasound showed left varicocele. LFTs were elevated but trending down. Continue with iv antibiotics as per ID. GI and surgery are following the patient as well. Urology evaluation and MRI abd/pelvis are pending. Family is at bedside and questions were answered. Cristobal [facility] MD [facility]
--- NOTE | 2017-06-13 15:09 | CP.PCM.PN ---
Subjective - Date & Time of Evaluation Date of Evaluation: 06/13/17 Time of Evaluation: 06:40 - Subjective Subjective: Patient seen and examined this morning. Reports suprapubic tenderness. Patient tolerating diet. Afebrile overnight. Objective - Vital Signs/Intake and Output Vital Signs (last 24 hours): Temp Pulse Resp BP Pulse Ox 98.6 F 62 20 108/64 95 06/13/17 08:20 06/13/17 08:20 06/13/17 08:20 06/13/17 08:20 06/13/17 08:20 - Medications Medications: Current Medications Docusate Sodium (Colace) 100 mg PO DAILY [facility] Last Admin: 06/13/17 10:09 Dose: 100 mg Heparin Sodium (Porcine) (Heparin) 5,000 units SC Q12 [facility] PRN Reason: Protocol Last Admin: 06/13/17 10:09 Dose: 5,000 units Sodium Chloride (Sodium Chloride 0.9%) 1,000 mls @ 100 mls/hr IV .Q10H [facility] Last Admin: 06/12/17 17:16 Dose: 100 mls/hr Cefepime HCl (Maxipime 1gm) 1 gm in 100 mls @ 100 mls/hr IVPB Q12 [facility] PRN Reason: Protocol Last Admin: 06/13/17 10:08 Dose: 100 mls/hr Doxycycline Hyclate 100 mg/ (Sodium Chloride) 100 mls @ 100 mls/hr IVPB Q12 [facility] PRN Reason: Protocol Last Admin: 06/13/17 10:08 Dose: 100 mls/hr Ketorolac Tromethamine (Toradol) 30 mg IVP Q6H PRN PRN Reason: Pain, moderate (4-7) Last Admin: 06/13/17 14:26 Dose: 30 mg Ondansetron HCl (Zofran Inj) 4 mg IVP Q4H PRN PRN Reason: Nausea/Vomiting Pantoprazole Sodium (Protonix Ec Tab) 40 mg PO 0600 [facility] Last Admin: 06/13/17 05:00 Dose: 40 mg Tramadol HCl (Ultram) 50 mg PO Q6 PRN PRN Reason: Pain, severe (8-10) - Constitutional Appears: No Acute Distress - Head Exam Head Exam: NORMOCEPHALIC - Eye Exam Eye Exam: Normal appearance - ENT Exam ENT Exam: Mucous Membranes Moist - Respiratory Exam Respiratory Exam: NORMAL BREATHING PATTERN. absent: Accessory Muscle Use - Cardiovascular Exam Cardiovascular Exam: +S1, +S2 - GI/Abdominal Exam GI & Abdominal Exam: Soft, Tenderness. absent: Distended, Firm, Guarding, Rigid , Rebound Additional comments: +tenderness along suprapubic region - Neurological Exam Neurological Exam: Alert, Awake, Oriented x3 - Psychiatric Exam Psychiatric exam: Normal Mood - Skin Skin Exam: Dry, Warm Assessment and Plan - Assessment and Plan (Free Text) Assessment: 26M w/ suprapubic tenderness and transaminitis -LFTs trending down, continue to monitor -Abx per ID -c/w pain management -Appendicitis, highly unlikely -No acute surgical intervention at this present time -Urology recs appreciated -D/w Dr. Kim Bernardo PGY-2
--- NOTE | 2017-06-13 22:28 | PN ---
DATE: 06/13/2017 SUBJECTIVE: The patient states that he is feeling better with left suprapubic pain. He still admits to some pain in the suprapubic area upon walking. PHYSICAL EXAMINATION: VITAL SIGNS: Reveal temperature of 98.6, blood pressure of 108/64, and heart rate of 62. GASTROINTESTINAL: Abdomen is soft. There is less suprapubic tenderness. LABORATORY DATA: The patient underwent an MRI of the abdomen and pelvis, results of which are pending. His white blood cell count is 6 and hemoglobin 11.4. His liver enzymes are trending downward with AST 70 and ALT 126. IMPRESSION: This is a 26-year-old male with suprapubic pain etiology of which is unclear. In fact, multiple CT scans, which have shown some free fluid in the pelvis. His pain is somewhat improved, although he now complaints of pain while ambulating. RECOMMENDATIONS 1. Await MRI results. 2. Await urology consultation. Harpreet Jara MD
--- NOTE | 2017-06-13 22:48 | CP.PCM.PN ---
Subjective - Date & Time of Evaluation Date of Evaluation: 06/13/17 Time of Evaluation: 20:45 - Subjective Subjective: Infectious Disease Follow Up: June 13, 2017 26 yo male presenting with worsening lower abdominal and suprapubic pain starting 2 days ago. Initially started with earaches and fevers up to 102 F. This started 4 days ago. He was given Amoxicillin through an Urgent care without any relief. The patient has no significant medical history. Seen by surgery. Free fluid in the abdominal ultrasound. Increased echogenecity in the liver on CT scan. Patient complaining mostly of suprapubic pain around the right groin. Remains on Cefepime and Flagyl for antibiotic coverage. Repeat CT scan shows slightly increased distension of the gallbladder. No specific inflammation of the intestines. Testicular ultrasound is showing left varicocele but no mass or torsion. Fevers appear to have downtrended with maximum recorded temperature today of 100.0 F. Cultures negative to date. Chlamydia testing is still pending. Procalcitonin is nonspecific. Noted MRI ordered. Objective - Vital Signs/Intake and Output Vital Signs (last 24 hours): Temp Pulse Resp BP Pulse Ox 99.1 F 72 20 114/66 98 06/13/17 16:00 06/13/17 16:00 06/13/17 16:00 06/13/17 16:00 06/13/17 16:00 Intake and Output: 06/13/17 06/14/17 18:59 06:59 Intake Total 1440 Output Total 600 Balance 840 - Medications Medications: Current Medications Docusate Sodium (Colace) 100 mg PO DAILY [facility] Last Admin: 06/13/17 10:09 Dose: 100 mg Heparin Sodium (Porcine) (Heparin) 5,000 units SC Q12 [facility] PRN Reason: Protocol Last Admin: 06/13/17 21:57 Dose: 5,000 units Sodium Chloride (Sodium Chloride 0.9%) 1,000 mls @ 100 mls/hr IV .Q10H [facility] Last Admin: 06/12/17 17:16 Dose: 100 mls/hr Cefepime HCl (Maxipime 1gm) 1 gm in 100 mls @ 100 mls/hr IVPB Q12 [facility] PRN Reason: Protocol Last Admin: 06/13/17 10:08 Dose: 100 mls/hr Doxycycline Hyclate 100 mg/ (Sodium Chloride) 100 mls @ 100 mls/hr IVPB Q12 [facility] PRN Reason: Protocol Last Admin: 06/13/17 21:56 Dose: 100 mls/hr Ketorolac Tromethamine (Toradol) 30 mg IVP Q6H PRN PRN Reason: Pain, moderate (4-7) Last Admin: 06/13/17 22:36 Dose: 30 mg Ondansetron HCl (Zofran Inj) 4 mg IVP Q4H PRN PRN Reason: Nausea/Vomiting Pantoprazole Sodium (Protonix Ec Tab) 40 mg PO 0600 [facility] Last Admin: 06/13/17 05:00 Dose: 40 mg Tamsulosin HCl (Flomax) 0.4 mg PO DAILY [facility] Tramadol HCl (Ultram) 50 mg PO Q6 PRN PRN Reason: Pain, severe (8-10) - Constitutional Appears: Non-toxic, No Acute Distress - Head Exam Head Exam: ATRAUMATIC, NORMOCEPHALIC - Eye Exam Eye Exam: EOMI, PERRL Pupil Exam: NORMAL ACCOMODATION, PERRL - ENT Exam ENT Exam: Mucous Membranes Moist, Normal External Ear Exam, TM's Normal Bilaterally - Neck Exam Neck Exam: Full ROM, Normal Inspection - Respiratory Exam Respiratory Exam: Clear to Ausculation Bilateral, NORMAL BREATHING PATTERN. absent: Rales, Rhonchi, Wheezes - Cardiovascular Exam Cardiovascular Exam: REGULAR RHYTHM, RRR, +S1, +S2 - GI/Abdominal Exam GI & Abdominal Exam: Soft, Tenderness, Normal Bowel Sounds. absent: Distended Additional comments: suprapubic tenderness - Extremities Exam Extremities Exam: Full ROM, Normal Inspection - Neurological Exam Neurological Exam: Alert, Awake, CN II-XII Intact, Oriented x3 - Psychiatric Exam Psychiatric exam: Normal Affect, Normal Mood - Skin Skin Exam: Normal Color Assessment and Plan - Assessment and Plan (Free Text) Assessment: 26 yo male with increasing abdominal pain and fevers up to 102.0 F over the past 4 days. The patient with vague findings in the imaging studies of the abdomen. Hepatitis screen was negative for A, B, and C. The patient with mild elevation of the LFTs. [place] cultures sent. No leukocytosis. No specific findings in the urinalysis. Started on Cefepime and Flagyl for now. Free fluid in the abdomen as seen by Ultrasound. No reported fevers in the past 24 hours but temperature did reach 100.0 F. Supportive care. He is sexually active. Recently in [place] 2 months ago. Most of the pain is in the suprapubic area now. Remains on Cefepime and Flagyl at this time. Awaiting Chlamydia testing to return. Testicular ultrasound shows a left varicocele. No reaction to Cefepime. Awaiting urology evaluation. Patient sent for MRI. On Doxycycline and Cefepime for antibiotic regimen. Thank you for allowing me to participate in the care of the patient, we will follow with you.
[2017-06-14 07:06] LABS: ALB/GLOB RATIO 1.1 (1.1-1.8); ALKALINE PHOSPHATASE 88 U/L (38-126); ALT/SGPT 120 U/L (7-56); AST/SGOT 77 U/L (17-59); BILIRUBIN,TOTAL 0.4 mg/dL (0.2-1.3); BLOOD UREA NITROGEN 12 mg/dL (7-21); CALCIUM 8.3 mg/dL (8.4-10.5); CARBON DIOXIDE 28 mmol/L (21-33); CHLORIDE 105 mmol/L (98-107); GFR AFRICAN-AMERICAN > 60; GLUCOSE,RANDOM 90 mg/dL (70-110); POTASSIUM 4.1 mmol/L (3.6-5.0); SODIUM 140 mmol/L (132-148); TOTAL PROTEIN 6.2 g/dL (5.8-8.3)
[2017-06-14 07:08] LABS: BASO # 0.05 K/mm3 (0.0-2.0); BASO % 0.6 % (0.0-3.0); EOS # 0.2 (0.0-0.7); EOS % 2.9 % (1.5-5.0); GRAN # 5.36 (1.4-6.5); GRAN % 66.9 % (50.0-68.0); HEMATOCRIT 37.4 % (42.0-52.0); LYMPH # 1.6 (1.2-3.4); LYMPH % 19.8 % (22.0-35.0); MEAN CORPUSCULAR HGB CONC 32.6 g/dl (31.0-37.0); MEAN PLATELET VOLUME 10.2 fl (7.0-11.0); MONO # 0.8 (0.1-0.6); MONO % 9.8 % (1.0-6.0); RED CELL DISTRIBUTION WIDTH 13.3 % (11.5-14.5)
[2017-06-14] MEDS: Pantoprazole 40 mg EC Tab PO SCH (07:49)
--- NOTE | 2017-06-14 10:43 | MRI ---
PROCEDURE: MRI pelvis HISTORY: free fluid in pelvis. Abd pain COMPARISON: CT abdomen/ pelvis 06/11/2017 TECHNIQUE: Multi sequence, multiplanar imaging of the pelvis was performed without intravenous gadolinium administration. FINDINGS: There is mild generalized ascites. There is no pelvic mass. There is no localized fluid collection. There is no pelvic lymphadenopathy. The urinary bladder is unremarkable. The prostate is small and unremarkable. There is incidental note made of abnormal increased signal on ST IR sequences in the left pubic symphysis. There is no evidence of accompanying lytic or blastic osseous lesion on CT examination of 06/11/2017. Significance uncertain. This may relate to recent trauma. Please correlate with history. The remaining visualized marrow signal is unremarkable. There is mild right hydrocele. There is no left hydrocele. IMPRESSION: Ascites. Increased signal in the left pubic symphysis of uncertain significance. Mild right hydrocele, nonspecific.
[2017-06-14] MEDS: Cefepime 1gm in NS 100ml 1 GM/100 ML BAG IVPB SCH ×2 (11:03→22:09)
--- NOTE | 2017-06-14 11:03 | MRI ---
PROCEDURE: MRI abdomen HISTORY: Abd pain COMPARISON: CT abdomen/ pelvis 06/11/2017 TECHNIQUE: Multi sequence, multiplanar imaging of the abdomen was performed without intravenous gadolinium administration. FINDINGS: The lung bases are significant for consolidation in both lower lobes posteriorly, possibly subsegmental atelectasis. There are small pleural effusions. This corresponds to findings on CT examination of 06/11/2017. The liver is normal in size, contour and signal intensity. There is a 1.3 cm ovoid lesion in the dome of the right hepatic lobe, low signal on T1 and high on T2 weighted images. This corresponds to a low-attenuation lesion seen on CT examination of 06/11/2017. This is nonspecific. There is no other hepatic mass identified. There is no biliary ductal dilatation. The gallbladder is normal in appearance without evidence of mural thickening or pericholecystic fluid. The common bile duct is normal in caliber. The spleen is normal in size, contour and signal intensity. There is no pancreatic mass identified. There is no pancreatic ductal dilatation. There is no peripancreatic fluid collection. There is no adrenal mass. There is no renal mass or hydronephrosis. There is mild generalized ascites. There is no retroperitoneal lymphadenopathy appreciated. Marrow signal of the visualized osseous structures is within normal limits. IMPRESSION: Mild generalized ascites. Bibasilar consolidation, likely subsegmental atelectasis, and small pleural effusion. Incidental 1.3 cm nonspecific lesion in the dome of the right hepatic lobe. No additional abnormality.
--- NOTE | 2017-06-14 13:04 | US ---
PROCEDURE: Ultrasound of the Bladder HISTORY: retention// for 06/14 COMPARISON: None available. TECHNIQUE: Grayscale imaging was performed. FINDINGS: The urinary bladder is well distended without wall thickening, focal mass or luminal stone. No free fluid in pelvis. Bilateral ureteral jets are visualized on color flow imaging. Prevoid Volume: 262 cc. Post void residual: 32 cc. There is a small amount of free fluid in the pelvis. IMPRESSION: Normal appearance of the urinary bladder. Small postvoid residual. Small amount of free fluid in the pelvis is of uncertain etiology and abnormal in a male patient
--- NOTE | 2017-06-14 15:19 | CON ---
UROLOGY CONSULTATION DATE OF SERVICE: 06/13/2017 HISTORY OF PRESENT ILLNESS: Chart is reviewed and the history is from the patient. Very pleasant gentleman, he is 26 years' old, normally with no prior significant medical history, who over the last few weeks is providing the following story; on his left, he felt he pulled a muscle perhaps in his left groin area, was not sure whether there maybe a hernia related. 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 Over time though, this has not really felt better. He tried various things for this, Aleve, but no actual relief. Starting this week back on 06/06/2017 give or take Tuesday and then progressing throughout the course of the week though to the point of 06/10/2017 when he presented to the hospital. The patient started having more discomfort this time instead of just the left groin in the right groin and he also started feeling that he started having fever. At the time of his presentation to the hospital, he had temperatures of 102 degrees upon even presenting to the hospital. On his initial presentation to the hospital, he actually came in and he had a chest x-ray, and he is currently in the hospital under the care of the hospitalist and also under the care of ID, and Urology is consulted to see if there is any further recommendations. The patient from a Urology standpoint does not report any discharge from his penis. He does not report any dysuria. No major voiding dysfunction. He feels like he does empty well. Of note, the Urology consult is for the presence of a hydrocele, see below physical exam, and the possibility for an epididymitis (see below physical exam, but I do not think it is epididymitis). See the summary at the end. He is sexually active. In fact, he is here with his girlfriend, who is not symptomatic with any specific problems, who is here at the bedside with the discussion. The fevers have resolved since he has been in the hospital. The patient is currently on antibiotics. He has no history of stone disease, no flank pain. Also of note, the patient besides the hydrocele was noted to have some free fluid in the pelvis (see below because he also seems to have some fluid around the base of his lungs and the physical exam listed below as well). Now, the patient reports that he feels there is pain in his suprapubic region and along the entire anterior portion of his pelvic region and going to both side of his hips what he describes as his pelvic girdle and he says he is having trouble with his gait and moving, see below in the assessment and plan, but he describes what he describes as he is unable to ambulate well not because of pain in his testicle, but because there is something wrong with his hips and his joints in both left and right, more right than left, but both joints are not working well, he is not able to bear weight well. He is not complaining of any back pain, spinal pain, midline back pain, and no coccyx pain. To his recollection, he does not have any falls or injuries, nothing that he could definitely pinpoint that he fell during any of his athletic activities. During the course from the first initial time until recently, he stopped running, but he was doing upper body work and was not specifically experiencing any particular problems, but was not able to do his normal athletic routine. PAST MEDICAL AND SURGICAL HISTORY: As listed above, nothing. REVIEW OF SYSTEMS: As listed above. SOCIAL HISTORY: Essentially unremarkable. He is here with his girlfriend and he is also here with his sister who is a nurse in the hospital. No other real significant history. TRAVEL HISTORY: He recently was in [facility], but does not recall any specific abnormalities or anything that strikes his mind. PHYSICAL EXAMINATION: GENERAL: He is a well-developed well-nourished muscular-appearing male, in no apparent distress, currently resting in his bed. See below the comments about ambulation. ABDOMEN: Somewhat distended pre void, but post void, he feels empty. No real CVA tenderness. GENITOURINARY: He has a normal male phallus. He is circumcised. There is no discharge from the penis. His scrotal exam, there is no real tenderness on the epididymal region and on the left side, everything is within normal limits. Reminder of the physical exam is otherwise unremarkable for . EXTREMITIES: The lower extremities do not seem to be edematous per se. NEUROLOGIC: Not performed. Testing for reflex is alike, see my plans and recommendations below (this is not a full neurologic exam). LABORATORY DATA: CT scan, I have had a chance to review, he has had 2 [address] scans. The bladder seems to be a little thick and distended, but otherwise essentially unremarkable. There are no masses, no stones seen. Kidneys are all within normal limits. The prostate itself is relatively normal. There is no prostate abscess. I have had a chance to review his MRI today. I see some fluid around the testicle, do not see any major prostatic abscesses. There is not an official report yet, we will wait for that to develop, but nothing overly striking (regarding bones on the CT scan or MRI, I do not see any specific abnormalities, but wait for the official readings). Laboratory values; his AST and ALT are noted to be somewhat elevated, bilirubin noted. His BUN and creatinine are normal. White counts are normal. Hematocrit is interestingly a little bit on the low side. Urine cultures are negative to date. Blood cultures are negative to date. There is GC and chlamydia noted. DIAGNOSES: 1. Abdominal pain. 2. Groin pain. 3. Hip pain. 4. Anemia. 5. Hydrocele. 6. Difficulty walking. 7. Gait difficulty. 8. Elevation in transaminases. 9. Bibasilar atelectasis. 10. Free fluid in lungs and pelvis. IMPRESSION: So from the Urology standpoint, I discussed my findings with the patient in great length. I do not think there is any evidence of epididymitis; if anything, it could be prostatitis, although not what the classic presentation of prostatitis. He is a little tender in the perineum, his bladder was full, but he did void well and empty. We will do further testing to evaluate for the possibility of prostatitis and we are also going to place the patient on Flomax. I also discussed with the patient that at this point, I will discuss with the other doctors more diagnostic testing that could be done. He asked me about the possibility for an osteomyelitis of the pubic bone. We will run this through Infectious Disease as to what diagnostic studies are available for that and maybe ask the radiologist if they have bone windows that are valuable or as to what is available. We will also suggest a neurologist to get involved to check the patient for any neurologic involvement here, perhaps Orthopedic consult and a Neurology consult may be appropriate, perhaps Physical Therapy. It is appropriate to assist the patient with his gait and walking (the difficulty walking is not related to the scrotum, not according to the patient and not according to the physical exam, I watched the patient ambulate). It is not a scrotal issue, it is a balance, gait, and a pelvic girdle issue, not a scrotal issue at all, but he is having some difficulty walking. PLAN: In the end, the Urology plan as follows; 1. We are going to order a PSA level. 2. We are going to start Flomax. 3. We are going to get a bladder scan to check pre and post void residuals. 4. We will talk to Infectious Disease as to what other testing can be run, we will run it. 5. We will discuss the possibility for Neurology evaluation and consultation. 6. Physical Therapy evaluation and consultation. 7. Further plans will follow. I will follow along with you. Thank you for the Urology consultation. Nader Avelar MD
--- NOTE | 2017-06-14 16:43 | CP.PCM.PN ---
<EvanIsaiah - Last Filed: 06/14/17 16:40> Subjective - Date & Time of Evaluation Date of Evaluation: 06/14/17 Time of Evaluation: 09:10 - Subjective Subjective: Medicine Progress note. Dr. Crain Pt seen and examined at bedside. No acute events overnight. Pt still with difficulty ambulating due to pain. Denies any fevers or chills overnight. No CP/ SOB. No N/V/D. No Abd pain. No new complaints. Objective - Vital Signs/Intake and Output Vital Signs (last 24 hours): Temp Pulse Resp BP Pulse Ox 99.2 F 72 18 126/70 96 06/14/17 08:42 06/14/17 08:42 06/14/17 08:42 06/14/17 08:42 06/14/17 08:42 Intake and Output: 06/14/17 06/14/17 06:59 18:59 Intake Total 1440 Output Total 600 Balance 840 - Medications Medications: Current Medications Docusate Sodium (Colace) 100 mg PO DAILY [facility] Last Admin: 06/14/17 11:02 Dose: 100 mg Heparin Sodium (Porcine) (Heparin) 5,000 units SC Q12 MIKE PRN Reason: Protocol Last Admin: 06/14/17 11:02 Dose: 5,000 units Sodium Chloride (Sodium Chloride 0.9%) 1,000 mls @ 100 mls/hr IV .Q10H [facility] Last Admin: 06/12/17 17:16 Dose: 100 mls/hr Cefepime HCl (Maxipime 1gm) 1 gm in 100 mls @ 100 mls/hr IVPB Q12 MIKE PRN Reason: Protocol Last Admin: 06/14/17 11:03 Dose: 100 mls/hr Doxycycline Hyclate 100 mg/ (Sodium Chloride) 100 mls @ 100 mls/hr IVPB Q12 MIKE PRN Reason: Protocol Last Admin: 06/14/17 11:04 Dose: 100 mls/hr Ketorolac Tromethamine (Toradol) 30 mg IVP Q6H PRN PRN Reason: Pain, moderate (4-7) Last Admin: 06/14/17 13:14 Dose: 30 mg Ondansetron HCl (Zofran Inj) 4 mg IVP Q4H PRN PRN Reason: Nausea/Vomiting Pantoprazole Sodium (Protonix Ec Tab) 40 mg PO 0600 [facility] Last Admin: 06/14/17 07:49 Dose: 40 mg Tamsulosin HCl (Flomax) 0.4 mg PO DAILY [facility] Last Admin: 06/14/17 11:02 Dose: 0.4 mg Tramadol HCl (Ultram) 50 mg PO Q6 PRN PRN Reason: Pain, severe (8-10) - Labs Labs: 06/14/17 06:41 06/14/17 06:41 - Constitutional Appears: Well, No Acute Distress - Head Exam Head Exam: ATRAUMATIC, NORMAL INSPECTION, NORMOCEPHALIC - Eye Exam Eye Exam: EOMI, Normal appearance - ENT Exam ENT Exam: Mucous Membranes Moist - Neck Exam Neck Exam: Full ROM - Respiratory Exam Respiratory Exam: NORMAL BREATHING PATTERN. absent: Respiratory Distress - Cardiovascular Exam Cardiovascular Exam: absent: JVD - GI/Abdominal Exam GI & Abdominal Exam: Soft. absent: Guarding, Rigid, Tenderness - Exam Additional comments: Suprapubic pain. Tenderness upon palpation. No bony prominence appreciated. - Extremities Exam Extremities Exam: Normal Inspection. absent: Pedal Edema Additional comments: Antalgic gait - Neurological Exam Neurological Exam: Alert, Awake, Oriented x3 - Skin Skin Exam: Dry, Intact, Normal Color, Warm Assessment and Plan - Assessment and Plan (Free Text) Assessment: 26yo M with no significant PMHx here with Abd pain, Fever. CT Abd/Pelvis with evidence of free fluid in pelvis. 1. Groin pain, Antalgic gait CT Abd/Pelvis 06/10: Non-visualized appy, Free fluid in pelvis CT Abd/Pelvis 923: Normal Appy, Free fluid in pelvis. Distended GB, No radiopaque stones Abd US: GB normal No leukocytosis. Now afebrile Testicular US: Left Varicocele. Normal left and right epididymis. Pain management GI Following, appreciate recs Surgery consulted no plans for any acute surgical intervention ID following, appreciate recs Continue IV Abx Doxy Cefepime Repeat CRP f/u ESR Tolerating regular diet MRI Abd/Pelvis - increased signal at left pubis. Cosider osteo vs. stress fx. vs. muscle overuse/strain No evidence of fx on recent CT scans. Consult Ortho, appreciate recs 2. Atelectasis As seen on CT/MRI consider cause of fevers Encourage IS use 3. Left Vericocele. Urology consulted, appreciate recs Bladder US - Free fluid in pelvis. 30cc post-void residual. no wall thickening Flomax 4. Transaminitis Trending down consider due to recent abx use continue to monitor Hep panel negative 5. PPx Encourage IS use Encourage Ambulation Protonix SCDs Discussed case with Dr. Paras Gordon PGY1 <Cristobal Crain - Last Filed: 06/14/17 18:36> Objective - Vital Signs/Intake and Output Vital Signs (last 24 hours): Temp Pulse Resp BP Pulse Ox 99.4 F 73 18 120/65 96 06/14/17 16:00 06/14/17 16:00 06/14/17 16:00 06/14/17 16:00 06/14/17 16:00 Intake and Output: 06/14/17 06/14/17 06:59 18:59 Intake Total 1440 Output Total 600 Balance 840 - Medications Medications: Current Medications Docusate Sodium (Colace) 100 mg PO DAILY [facility] Last Admin: 06/14/17 11:02 Dose: 100 mg Heparin Sodium (Porcine) (Heparin) 5,000 units SC Q12 MIKE PRN Reason: Protocol Last Admin: 06/14/17 11:02 Dose: 5,000 units Cefepime HCl (Maxipime 1gm) 1 gm in 100 mls @ 100 mls/hr IVPB Q12 MIKE PRN Reason: Protocol Last Admin: 06/14/17 11:03 Dose: 100 mls/hr Doxycycline Hyclate 100 mg/ (Sodium Chloride) 100 mls @ 100 mls/hr IVPB Q12 MIEK PRN Reason: Protocol Last Admin: 06/14/17 11:04 Dose: 100 mls/hr Ketorolac Tromethamine (Toradol) 30 mg IVP Q6H PRN PRN Reason: Pain, moderate (4-7) Last Admin: 06/14/17 13:14 Dose: 30 mg Ondansetron HCl (Zofran Inj) 4 mg IVP Q4H PRN PRN Reason: Nausea/Vomiting Pantoprazole Sodium (Protonix Ec Tab) 40 mg PO 0600 [facility] Last Admin: 06/14/17 07:49 Dose: 40 mg Tamsulosin HCl (Flomax) 0.4 mg PO DAILY [facility]KE Last Admin: 06/14/17 11:02 Dose: 0.4 mg Tramadol HCl (Ultram) 50 mg PO Q6 PRN PRN Reason: Pain, severe (8-10) - Labs Labs: 06/14/17 06:41 06/14/17 06:41 Attending/Attestation - Attestation I have personally seen and examined this patient.: Yes I have fully participated in the care of the patient.: Yes I have reviewed all pertinent clinical information, including history, physical exam and plan: Yes Notes (Text): 06/14/17 18:32 26 year old male with no significant past medical history who presented with complaint of fever and lower abdominal pain. CT abd/pelvis showed free fluid in the pelvis. Testicular ultrasound showed left varicocele. LFTs were elevated but trending down. Continue with iv antibiotics as per ID. He is being followed by GI and ID as well. Urology and PT evaluation were appreciated. Abdominal/pelvic MRI were reviewed; shows increased signal at left pubic. DDx includes muscle overuse/strain vs stress fracture vs OM as per radiology. ESR/CRP is ordered and orthopedics evaluation is requested. Family is at bedside and questions were answered. Cristobal Crain MD Hospitalist.
--- NOTE | 2017-06-14 18:52 | PN ---
DATE: 06/14/2017 SUBJECTIVE: The patient is lying in bed. He still complains of suprapubic pain. He also has pain with ambulating. PHYSICAL EXAMINATION: VITAL SIGNS: Reveal temperature of 99.2, blood pressure 126/70, heart rate of 72. The patient has suprapubic tenderness on physical exam. The patient underwent a pelvis MRI yesterday, which shows abnormal signal in the left pubic symphysis to the left superior pubic ramus, significance of this increased signal on MRI is unclear; however, this is the area of the patient's pain is clearly the suprapubic pain is not related to a GI issue. RECOMMENDATIONS: Consider Orthopedic evaluation as well as further Infectious Disease input as to whether this is a related to trauma or some other inflammatory or infectious process. Harpreet Jara MD
[2017-06-14] MEDS: Vancomycin 1gm in NS 250ml 1 GM/250 ML BAG IVPB SCH (22:30)
--- NOTE | 2017-06-14 22:41 | CP.PCM.PN ---
Subjective - Date & Time of Evaluation Date of Evaluation: 06/14/17 Time of Evaluation: 22:13 - Subjective Subjective: Infectious Disease Follow Up: June 14, 2017 26 yo male presenting with worsening lower abdominal and suprapubic pain starting 2 days ago. Initially started with earaches and fevers up to 102 F. This started 4 days ago. He was given Amoxicillin through an Urgent care without any relief. The patient has no significant medical history. Seen by surgery. Free fluid in the abdominal ultrasound. Increased echogenecity in the liver on CT scan. Patient complaining mostly of suprapubic pain around the right groin. Remains on Cefepime and Flagyl for antibiotic coverage. Repeat CT scan shows slightly increased distension of the gallbladder. No specific inflammation of the intestines. Testicular ultrasound is showing left varicocele but no mass or torsion. Fevers appear to have downtrended with maximum recorded temperature today of 100.0 F. Cultures negative to date. Chlamydia testing is still pending. Procalcitonin is nonspecific. MRI showed uptake in pelvic bone but unclear if there is osteomyelitis. Bladder ultrasound showed no bladder abnormalities but still showing fluid in abdominal/pelvic cavity. Objective - Vital Signs/Intake and Output Vital Signs (last 24 hours): Temp Pulse Resp BP Pulse Ox 99.4 F 73 18 120/65 96 06/14/17 16:00 06/14/17 16:00 06/14/17 16:00 06/14/17 16:00 06/14/17 16:00 Intake and Output: 06/14/17 06/15/17 18:59 06:59 Intake Total 1020 Output Total 850 Balance 170 - Medications Medications: Current Medications Docusate Sodium (Colace) 100 mg PO DAILY [facility] Last Admin: 06/14/17 11:02 Dose: 100 mg Heparin Sodium (Porcine) (Heparin) 5,000 units SC Q12 MIKE PRN Reason: Protocol Last Admin: 06/14/17 11:02 Dose: 5,000 units Cefepime HCl (Maxipime 1gm) 1 gm in 100 mls @ 100 mls/hr IVPB Q12 MIKE PRN Reason: Protocol Last Admin: 06/14/17 11:03 Dose: 100 mls/hr Doxycycline Hyclate 100 mg/ (Sodium Chloride) 100 mls @ 100 mls/hr IVPB Q12 MIKE PRN Reason: Protocol Last Admin: 06/14/17 21:53 Dose: 100 mls/hr Ketorolac Tromethamine (Toradol) 30 mg IVP Q6H PRN PRN Reason: Pain, moderate (4-7) Last Admin: 06/14/17 21:59 Dose: 30 mg Ondansetron HCl (Zofran Inj) 4 mg IVP Q4H PRN PRN Reason: Nausea/Vomiting Pantoprazole Sodium (Protonix Ec Tab) 40 mg PO 0600 [facility] Last Admin: 06/14/17 07:49 Dose: 40 mg Tamsulosin HCl (Flomax) 0.4 mg PO DAILY [facility] Last Admin: 06/14/17 11:02 Dose: 0.4 mg Tramadol HCl (Ultram) 50 mg PO Q6 PRN PRN Reason: Pain, severe (8-10) - Labs Labs: 06/14/17 06:41 06/14/17 06:41 - Constitutional Appears: Non-toxic, No Acute Distress - Head Exam Head Exam: ATRAUMATIC, NORMOCEPHALIC - Eye Exam Eye Exam: EOMI, PERRL Pupil Exam: NORMAL ACCOMODATION, PERRL - ENT Exam ENT Exam: Mucous Membranes Moist, Normal External Ear Exam, TM's Normal Bilaterally - Neck Exam Neck Exam: Full ROM, Normal Inspection - Respiratory Exam Respiratory Exam: Clear to Ausculation Bilateral, NORMAL BREATHING PATTERN. absent: Rales, Rhonchi, Wheezes - Cardiovascular Exam Cardiovascular Exam: REGULAR RHYTHM, RRR, +S1, +S2 - GI/Abdominal Exam GI & Abdominal Exam: Soft, Tenderness, Normal Bowel Sounds. absent: Distended Additional comments: suprapubic tenderness - Exam Exam: Scrotal Swelling Additional comments: but no erythema, induration, extra warmth or tenderness. - Extremities Exam Extremities Exam: Full ROM, Normal Inspection - Neurological Exam Neurological Exam: Alert, Awake, CN II-XII Intact, Oriented x3 - Psychiatric Exam Psychiatric exam: Normal Affect, Normal Mood - Skin Skin Exam: Normal Color Assessment and Plan - Assessment and Plan (Free Text) Assessment: 26 yo male with increasing abdominal pain and fevers up to 102.0 F over the past 4 days. The patient with vague findings in the imaging studies of the abdomen. Hepatitis screen was negative for A, B, and C. The patient with mild elevation of the LFTs. [place] cultures sent. No leukocytosis. No specific findings in the urinalysis. Started on Cefepime and Flagyl for now. Free fluid in the abdomen as seen by Ultrasound. No reported fevers in the past 24 hours but temperature did reach 100.0 F. Supportive care. He is sexually active. Recently in [facility] 2 months ago. Most of the pain is in the suprapubic area now. Remains on Cefepime and Flagyl at this time. Awaiting Chlamydia testing to return. Testicular ultrasound shows a left varicocele. No reaction to Cefepime. Awaiting urology evaluation. Patient sent for MRI. On Doxycycline and Cefepime for antibiotic regimen. Add Vancomycin to regimen if no improvement tomorrow. Await full evaluation by Dr. Calderon. May need biopsy by IR, will discuss with Orthopedics. Thank you for allowing me to participate in the care of the patient, we will follow with you.
[2017-06-15] MEDS: Pantoprazole 40 mg EC Tab PO SCH (06:14)
[2017-06-15 06:43] LABS: ALB/GLOB RATIO 0.9 (1.1-1.8); ALKALINE PHOSPHATASE 88 U/L (38-126); ALT/SGPT 200 U/L (7-56); AST/SGOT 171 U/L (17-59); BILIRUBIN,TOTAL 0.5 mg/dL (0.2-1.3); BLOOD UREA NITROGEN 10 mg/dL (7-21); CALCIUM 8.8 mg/dL (8.4-10.5); CARBON DIOXIDE 26 mmol/L (21-33); CHLORIDE 105 mmol/L (95-110); GFR AFRICAN-AMERICAN > 60; GLUCOSE,RANDOM 90 mg/dL (70-110); SODIUM 140 mmol/L (132-148); TOTAL PROTEIN 6.5 g/dL (5.8-8.3)
[2017-06-15 06:45] LABS: BASO # 0.05 K/mm3 (0.0-2.0); BASO % 0.6 % (0.0-3.0); EOS # 0.3 (0.0-0.7); EOS % 3.2 % (1.5-5.0); GRAN # 5.34 (1.4-6.5); GRAN % 65.9 % (50.0-68.0); HEMATOCRIT 35.9 % (42.0-52.0); LYMPH # 1.5 (1.2-3.4); LYMPH % 18.1 % (22.0-35.0); MEAN CELL VOLUME 88.4 fl (80.0-105.0); MEAN CORPUSCULAR HEMOGLOBIN 29.3 pg (25.0-35.0); MEAN CORPUSCULAR HGB CONC 33.1 g/dl (31.0-37.0); MEAN PLATELET VOLUME 9.7 fl (7.0-11.0); MONO % 12.2 % (1.0-6.0); RED CELL DISTRIBUTION WIDTH 13.2 % (11.5-14.5); WHITE BLOOD COUNT 8.1 10^3/ul (4.5-11.0)
--- NOTE | 2017-06-15 10:19 | CON ---
ORTHOPEDIC CONSULTATION DATE: 06/15/2017 HISTORY OF PRESENT ILLNESS: The patient has vague and insidious onset of pain of his right groin and pubic symphysis. X-rays, MRI, and CAT scans were done. 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 Right now, it is difficult diagnosis to make but the x-ray of the limb, and we were suggesting MRI to see how involved the inflammation is. She does have elevated sed rate of 48 and no white count response, and no shift of the granulocytes, so it could be just inflammation, non-infectious, I suggested a bone scan to help us determine where the localization is, if it is in this symphysis pubis or near the groin area, so we are going to order a bone scan and there is always a possibility that he may need to see a physician or a orthopedic doctor specialist Dr. Juancho Kaiser at [facility], because everything is not contributory to affirm diagnosis. We are getting to start with a bone scan and get a plain x-ray of the pelvis too. Bethel Calderon DO
--- NOTE | 2017-06-15 10:39 | RAD ---
PROCEDURE: Radiographs of the pelvis. HISTORY: ostitis pubis COMPARISON: None. FINDINGS: BONES: Pelvic Bones: Unremarkable. Hips: Grossly unremarkable. JOINTS: Sacroiliac Joints: Unremarkable. Pubic Symphysis: Unremarkable. No osteitis condensans pubis suggested OTHER FINDINGS: Bilateral femoral lesser trochanter corticated ossifications left larger than right are noted -old osseous avulsions are consistent with this Residual contrast within the rectosigmoid colon noted IMPRESSION: No osteitis condensans pubis suggested. No acute fracture suggested Bilateral femoral lesser trochanter old osseous avulsions. Correlation with past medical history is recommended
[2017-06-15] MEDS: Cefepime 1gm in NS 100ml 1 GM/100 ML BAG IVPB SCH ×2 (11:07→23:10)
[2017-06-15] MEDS: Vancomycin 1gm in NS 250ml 1 GM/250 ML BAG IVPB SCH ×2 (11:07→23:26)
--- NOTE | 2017-06-15 12:15 | PCM.URO ---
Urology Progress Note - Objective Lab Studies: Reviewed (full note dictated) Lab Results Last 24 Hours: Laboratory Results - last 24 hr 06/14/17 06/14/17 06/15/17 15:30 15:30 06:09 WBC RBC Hgb Hct MCV MCH MCHC RDW Plt Count MPV Gran % Lymph % (Auto) Vance % (Auto) Eos % (Auto) Baso % (Auto) Gran # Lymph # Vance # Eos # Baso # ESR 48 H Sodium 140 Potassium 4.0 Chloride 105 Carbon Dioxide 26 Anion Gap 13 BUN 10 Creatinine 0.8 Est GFR ( Amer) > 60 Est GFR (Non-Af Amer) > 60 Random Glucose 90 Calcium 8.8 Total Bilirubin 0.5 AST 171 H D ALT 200 H Alkaline Phosphatase 88 C-React Prot High Sens > 15.00 H Total Protein 6.5 Albumin 3.2 Globulin 3.3 Albumin/Globulin Ratio 0.9 L 06/15/17 06:10 WBC 8.1 RBC 4.06 Hgb 11.9 L Hct 35.9 L MCV 88.4 MCH 29.3 MCHC 33.1 RDW 13.2 Plt Count 345 MPV 9.7 Gran % 65.9 Lymph % (Auto) 18.1 L Vance % (Auto) 12.2 H Eos % (Auto) 3.2 Baso % (Auto) 0.6 Gran # 5.34 Lymph # 1.5 Vance # 1.0 H Eos # 0.3 Baso # 0.05 ESR Sodium Potassium Chloride Carbon Dioxide Anion Gap BUN Creatinine Est GFR ( Amer) Est GFR (Non-Af Amer) Random Glucose Calcium Total Bilirubin AST ALT Alkaline Phosphatase C-React Prot High Sens Total Protein Albumin Globulin Albumin/Globulin Ratio Intake & Output: Intake & Output 06/14/17 06/15/17 06/15/17 18:59 06:59 18:59 Intake Total 1020 Output Total 850 Balance 170 Intake: Oral 1020 Output: Urine 850 Urine, Voided 850 Other: # Bowel Movements 0 Vital Signs: Vital Signs - 24 hr 06/14/17 06/15/17 16:00 06:00 Temperature 99.4 F 98.9 F Pulse Rate 73 72 Respiratory 18 18 Rate Blood Pressure 120/65 125/74 O2 Sat by Pulse 96 94 L Oximetry
--- NOTE | 2017-06-15 12:31 | CP.PCM.PN ---
<Edu Bryan - Last Filed: 06/15/17 12:22> Subjective - Date & Time of Evaluation Date of Evaluation: 06/15/17 Time of Evaluation: 12:22 - Subjective Subjective: Pt seen and examined at bedside. Pt with no acute overnight events. Pt still complaining of pain in pubic region along with difficulty walking, secondary to pain. Patient able tolerate diet at this time. Denies CP, SOB, N/V/D, fever, chills. Objective - Vital Signs/Intake and Output Vital Signs (last 24 hours): Temp Pulse Resp BP Pulse Ox 98.9 F 72 18 125/74 94 L 06/15/17 06:00 06/15/17 06:00 06/15/17 06:00 06/15/17 06:00 06/15/17 06:00 Intake and Output: 06/15/17 06/15/17 06:59 18:59 Intake Total 1020 Output Total 850 Balance 170 - Medications Medications: Current Medications Docusate Sodium (Colace) 100 mg PO DAILY [facility] Last Admin: 06/15/17 11:06 Dose: 100 mg Heparin Sodium (Porcine) (Heparin) 5,000 units SC Q12 MIKE PRN Reason: Protocol Last Admin: 06/15/17 11:10 Dose: 5,000 units Cefepime HCl (Maxipime 1gm) 1 gm in 100 mls @ 100 mls/hr IVPB Q12 MIKE PRN Reason: Protocol Last Admin: 06/15/17 11:07 Dose: 100 mls/hr Doxycycline Hyclate 100 mg/ (Sodium Chloride) 100 mls @ 100 mls/hr IVPB Q12 MIKE PRN Reason: Protocol Last Admin: 06/15/17 10:56 Dose: 100 mls/hr Vancomycin HCl (Vancomycin 1gm) 1 gm in 250 mls @ 167 mls/hr IVPB Q12H MIKE PRN Reason: Protocol Last Admin: 06/15/17 11:07 Dose: 167 mls/hr Ketorolac Tromethamine (Toradol) 30 mg IVP Q6H PRN PRN Reason: Pain, moderate (4-7) Last Admin: 06/15/17 06:16 Dose: 30 mg Ondansetron HCl (Zofran Inj) 4 mg IVP Q4H PRN PRN Reason: Nausea/Vomiting Pantoprazole Sodium (Protonix Ec Tab) 40 mg PO 0600 [facility] Last Admin: 06/15/17 06:14 Dose: 40 mg Tamsulosin HCl (Flomax) 0.4 mg PO DAILY [facility] Last Admin: 06/15/17 11:06 Dose: 0.4 mg Tramadol HCl (Ultram) 50 mg PO Q6 PRN PRN Reason: Pain, severe (8-10) - Labs Labs: 06/15/17 06:10 06/15/17 06:09 - Constitutional Appears: Non-toxic, No Acute Distress - Head Exam Head Exam: ATRAUMATIC, NORMAL INSPECTION, NORMOCEPHALIC - ENT Exam ENT Exam: Mucous Membranes Moist, Normal Exam - Respiratory Exam Respiratory Exam: Clear to Ausculation Bilateral, NORMAL BREATHING PATTERN. absent: Rales, Rhonchi, Wheezes - Cardiovascular Exam Cardiovascular Exam: RRR, +S1, +S2 - GI/Abdominal Exam GI & Abdominal Exam: Soft, Tenderness, Normal Bowel Sounds - Exam Additional comments: Pain to palpation in the pubic region - Extremities Exam Extremities Exam: absent: Calf Tenderness, Pedal Edema - Neurological Exam Neurological Exam: Alert, Awake, Oriented x3 - Psychiatric Exam Psychiatric exam: Normal Affect, Normal Mood - Skin Skin Exam: Intact, Normal Color, Warm Assessment and Plan - Assessment and Plan (Free Text) Plan: 26 y/o M with no PMH presents with abdominal pain and fever. CT of abdomen/ pelvis revealed free fluid in pelvis. Pt currently being followed by GI, Surgery , ID, and Ortho. Differential diagnosis at this time includes osteitis pubis and osteomyelitis. Pt will receive a Bone scan and abdomen x-ray to further evaluate pain. 1. Groin pain, Osteomyelitis vs Osteitis pubis Afebrile, no leukocytosis at this time Pelvis MRI shows increase uptake in left pubic symphysis Ortho recommends bone scan and abdominal x-ray to evaluate after MRI was nonconclusive ESR and CRP elevated GI Following, appreciate recs Surgery consultes, no acute surgical intervention Continue Doxycycline, Cefepime, and Vancomycin Tolerating regular diet No evidence of fx on recent CT scans. 2. Atelectasis Afebrile Encourage IS use 3. Left Varicocele Continue abx Continue flomax Urology consulted 4. Transaminitis Increasing at this time Possibly secondary to abx use Hepatitis panel negative Will continue to monitor 5. PPX Protonix SCDs Bhagwandin, PGY-2 <Cristobal Crain - Last Filed: 06/15/17 16:08> Objective - Vital Signs/Intake and Output Vital Signs (last 24 hours): Temp Pulse Resp BP Pulse Ox 98.9 F 72 18 125/74 94 L 06/15/17 06:00 06/15/17 06:00 06/15/17 06:00 06/15/17 06:00 06/15/17 06:00 Intake and Output: 06/15/17 06/15/17 06:59 18:59 Intake Total 1020 Output Total 850 Balance 170 - Medications Medications: Current Medications Docusate Sodium (Colace) 100 mg PO DAILY [facility] Last Admin: 06/15/17 11:06 Dose: 100 mg Heparin Sodium (Porcine) (Heparin) 5,000 units SC Q12 MIKE PRN Reason: Protocol Last Admin: 06/15/17 11:10 Dose: 5,000 units Cefepime HCl (Maxipime 1gm) 1 gm in 100 mls @ 100 mls/hr IVPB Q12 MIKE PRN Reason: Protocol Last Admin: 06/15/17 11:07 Dose: 100 mls/hr Doxycycline Hyclate 100 mg/ (Sodium Chloride) 100 mls @ 100 mls/hr IVPB Q12 MIKE PRN Reason: Protocol Last Admin: 06/15/17 10:56 Dose: 100 mls/hr Vancomycin HCl (Vancomycin 1gm) 1 gm in 250 mls @ 167 mls/hr IVPB Q12H IMKE PRN Reason: Protocol Last Admin: 06/15/17 11:07 Dose: 167 mls/hr Ketorolac Tromethamine (Toradol) 30 mg IVP Q6H PRN PRN Reason: Pain, moderate (4-7) Last Admin: 06/15/17 14:36 Dose: 30 mg Ondansetron HCl (Zofran Inj) 4 mg IVP Q4H PRN PRN Reason: Nausea/Vomiting Pantoprazole Sodium (Protonix Ec Tab) 40 mg PO 0600 [facility] Last Admin: 06/15/17 06:14 Dose: 40 mg Tamsulosin HCl (Flomax) 0.4 mg PO DAILY [facility] Last Admin: 06/15/17 11:06 Dose: 0.4 mg Tramadol HCl (Ultram) 50 mg PO Q6 PRN PRN Reason: Pain, severe (8-10) - Labs Labs: 06/15/17 06:10 06/15/17 06:09 Attending/Attestation - Attestation I have personally seen and examined this patient.: Yes I have fully participated in the care of the patient.: Yes I have reviewed all pertinent clinical information, including history, physical exam and plan: Yes Notes (Text): 06/15/17 16:05 26 year old male with no significant past medical history who presented with complaint of fever and lower abdominal/pelvic pain. CT abd/pelvis showed free fluid in the pelvis. Testicular ultrasound showed left varicocele. Continue with iv antibiotics as per ID. Case was discussed with Dr. Alegre today. LFTs were elevated. He is being followed by GI as well. Urology and PT evaluation were appreciated. Abdominal/pelvic MRI showed increased signal at left pubic. DDx includes muscle overuse/strain vs stress fracture vs OM as per radiology. ESR/CRP is elevated. Orthopedics evaluation was appreciated who ordered bone scan and pelvic xray. Cristobal Crain MD Hospitalist.
--- NOTE | 2017-06-15 15:24 | NM ---
PROCEDURE: Whole Body Bone Scan HISTORY: pelcic pain poa inf or tumer COMPARISON: 06/11/2017 CT pelvis 06/14/2017 MRI pelvis. TECHNIQUE: Following administration of 28.0 miCu of Tc MDP multiplanar whole body images were obtained. FINDINGS: Evidence for bony metastatic disease: None. Degenerative uptake: None. Physiologic uptake: Normal physiologic activity in the kidneys. Other findings: Asymmetric uptake in the left pubic symphysis region. Compared to the right. This corresponds to findings on recent MRI. There is no correlate even in retrospect osseous structures of the pelvis on the prior CT 06/11/2017. IMPRESSION: No evidence of bony metastatic disease. Vaguely increased uptake left pubic symphysis compared to right. The finding is of uncertain etiology and doubtful clinical significance.
--- NOTE | 2017-06-15 17:07 | CP.PCM.PN ---
Subjective - Date & Time of Evaluation Date of Evaluation: 06/15/17 Time of Evaluation: 16:49 - Subjective Subjective: Infectious Disease Follow Up: June 15, 2017 26 yo male presenting with worsening lower abdominal and suprapubic pain starting 2 days ago. Initially started with earaches and fevers up to 102 F. This started 4 days ago. He was given Amoxicillin through an Urgent care without any relief. The patient has no significant medical history. Seen by surgery. Free fluid in the abdominal ultrasound. Increased echogenecity in the liver on CT scan. Patient complaining mostly of suprapubic pain around the right groin. Remains on Cefepime and Flagyl for antibiotic coverage. Repeat CT scan shows slightly increased distension of the gallbladder. No specific inflammation of the intestines. Testicular ultrasound is showing left varicocele but no mass or torsion. Afebrile. Cultures negative to date. Chlamydia and Gonorrhoeae is negative. Procalcitonin is nonspecific. MRI showed uptake in pelvic bone but unclear if there is osteomyelitis. Bladder ultrasound showed no bladder abnormalities but still showing fluid in abdominal/pelvic cavity. Bone scan is showing nonspecific vaguely increased uptake of left pubic symphysis compared to right. Finding is of uncertain etiology and doubtful clinical significant. Pelvic X-rays are showing bilateral femoral lesser trochanter old osseous avulsions. Spoke with Dr. Calderon today. Objective - Vital Signs/Intake and Output Vital Signs (last 24 hours): Temp Pulse Resp BP Pulse Ox 98.9 F 72 18 125/74 94 L 06/15/17 06:00 06/15/17 06:00 06/15/17 06:00 06/15/17 06:00 06/15/17 06:00 Intake and Output: 06/15/17 06/15/17 06:59 18:59 Intake Total 1020 Output Total 850 Balance 170 - Medications Medications: Current Medications Docusate Sodium (Colace) 100 mg PO DAILY [facility] Last Admin: 06/15/17 11:06 Dose: 100 mg Heparin Sodium (Porcine) (Heparin) 5,000 units SC Q12 MIKE PRN Reason: Protocol Last Admin: 06/15/17 11:10 Dose: 5,000 units Cefepime HCl (Maxipime 1gm) 1 gm in 100 mls @ 100 mls/hr IVPB Q12 MIKE PRN Reason: Protocol Last Admin: 06/15/17 11:07 Dose: 100 mls/hr Doxycycline Hyclate 100 mg/ (Sodium Chloride) 100 mls @ 100 mls/hr IVPB Q12 MIKE PRN Reason: Protocol Last Admin: 06/15/17 10:56 Dose: 100 mls/hr Vancomycin HCl (Vancomycin 1gm) 1 gm in 250 mls @ 167 mls/hr IVPB Q12H MIKE PRN Reason: Protocol Last Admin: 06/15/17 11:07 Dose: 167 mls/hr Ketorolac Tromethamine (Toradol) 30 mg IVP Q6H PRN PRN Reason: Pain, moderate (4-7) Last Admin: 06/15/17 14:36 Dose: 30 mg Ondansetron HCl (Zofran Inj) 4 mg IVP Q4H PRN PRN Reason: Nausea/Vomiting Pantoprazole Sodium (Protonix Ec Tab) 40 mg PO 0600 [facility] Last Admin: 06/15/17 06:14 Dose: 40 mg Tamsulosin HCl (Flomax) 0.4 mg PO DAILY [facility] Last Admin: 06/15/17 11:06 Dose: 0.4 mg Tramadol HCl (Ultram) 50 mg PO Q6 PRN PRN Reason: Pain, severe (8-10) - Labs Labs: 06/15/17 06:10 06/15/17 06:09 - Constitutional Appears: Non-toxic, No Acute Distress, Chronically Ill - Head Exam Head Exam: ATRAUMATIC, NORMOCEPHALIC - Eye Exam Eye Exam: EOMI, PERRL Pupil Exam: NORMAL ACCOMODATION, PERRL - ENT Exam ENT Exam: Mucous Membranes Moist, Normal External Ear Exam, TM's Normal Bilaterally - Neck Exam Neck Exam: Full ROM, Normal Inspection - Respiratory Exam Respiratory Exam: Clear to Ausculation Bilateral, NORMAL BREATHING PATTERN. absent: Rales, Rhonchi, Wheezes - Cardiovascular Exam Cardiovascular Exam: REGULAR RHYTHM, RRR, +S1, +S2 - GI/Abdominal Exam GI & Abdominal Exam: Soft, Tenderness, Normal Bowel Sounds. absent: Distended Additional comments: right sided suprapubic tenderness - Exam Exam: Scrotal Swelling Additional comments: but no erythema, induration, extra warmth or tenderness. - Extremities Exam Extremities Exam: Normal Inspection Additional comments: ROM limited secondary to pain. - Neurological Exam Neurological Exam: Alert, Awake, CN II-XII Intact, Oriented x3 - Psychiatric Exam Psychiatric exam: Normal Affect, Normal Mood - Skin Skin Exam: Intact, Normal Color Assessment and Plan - Assessment and Plan (Free Text) Assessment: 26 yo male with increasing abdominal pain and fevers up to 102.0 F over the past 4 days. The patient with vague findings in the imaging studies of the abdomen. Hepatitis screen was negative for A, B, and C. The patient with mild elevation of the LFTs. [place] cultures sent. No leukocytosis. No specific findings in the urinalysis. Started on Cefepime and Flagyl for now. Free fluid in the abdomen as seen by Ultrasound. No reported fevers in the past 24 hours but temperature did reach 100.0 F. Supportive care. He is sexually active. Recently in [place] 2 months ago. Most of the pain is in the suprapubic area now. Remains on Cefepime and Flagyl at this time. Awaiting Chlamydia testing to return. Testicular ultrasound shows a left varicocele. No reaction to Cefepime. On Doxycycline and Cefepime for antibiotic regimen. Add Vancomycin to regimen if no improvement tomorrow. Await full evaluation by Dr. Calderon. Noted negative Chlamydia and Gonorrhoeae studies. Nonspecific Bone scan but findings very weakly correlating to osteomyelitis in the left pubic symphysis. More likely a stress fracture. Thank you for allowing me to participate in the care of the patient, we will follow with you.
[2017-06-15 21:22] LABS: EBV EA (D) AB IgG 16.1 U/mL (<9.00)
[2017-06-16] MEDS: Pantoprazole 40 mg EC Tab PO SCH (06:59)
[2017-06-16] MEDS: Cefepime 1gm in NS 100ml 1 GM/100 ML BAG IVPB SCH (11:02)
[2017-06-16] MEDS: Vancomycin 1gm in NS 250ml 1 GM/250 ML BAG IVPB SCH (11:03)
[2017-06-16 13:32] LABS: URINE BILIRUBIN NEGATIVE (NEGATIVE); URINE BLOOD NEGATIVE (NEGATIVE); URINE GLUCOSE (UA) NEGATIVE (NEGATIVE); URINE KETONE NEGATIVE (NEGATIVE); URINE LEUKOCYTE ESTERASE NEGATIVE Leu/uL (NEGATIVE); URINE PROTEIN NEGATIVE mg/dL (<30 mg/dL)
[2017-06-16 13:34] LABS: URINE APPEARANCE CLEAR (CLEAR); URINE COLOR YELLOW (YELLOW)
--- NOTE | 2017-06-16 16:31 | RAD ---
HISTORY: fever, r/o interval changes COMPARISON: Portable chest 06/09/2017. TECHNIQUE: Chest PA and lateral FINDINGS: LUNGS: No active pulmonary disease. PLEURA: No significant pleural effusion identified. No pneumothorax apparent. CARDIOVASCULAR: Normal. OSSEOUS STRUCTURES: No significant abnormalities. VISUALIZED UPPER ABDOMEN: Normal. OTHER FINDINGS: None. IMPRESSION: No acute cardiopulmonary disease appreciated. No significant interval change.
--- NOTE | 2017-06-16 16:41 | CP.PCM.PN ---
<Isaiah Gordon - Last Filed: 06/16/17 16:32> Subjective - Date & Time of Evaluation Date of Evaluation: 06/16/17 Time of Evaluation: 09:45 - Subjective Subjective: Medicine Progress note. Dr. Crain Pt seen and examined at bedside with sister, Lynda, present. Patient febrile to 101F overnight. Still with pain upon ambulation. Denies any cough. No CP/ SOB. No urinary complaints. States that he is using his IS often. Denies any new complaints. Objective - Vital Signs/Intake and Output Vital Signs (last 24 hours): Temp Pulse Resp BP Pulse Ox 102.0 F H 80 12 119/74 98 06/16/17 16:14 06/16/17 16:14 06/16/17 16:14 06/16/17 16:14 06/16/17 16:14 Intake and Output: 06/16/17 06/16/17 06:59 18:59 Intake Total 1530 Output Total 600 Balance 930 - Medications Medications: Current Medications Docusate Sodium (Colace) 100 mg PO DAILY [facility] Last Admin: 06/16/17 11:27 Dose: Not Given Heparin Sodium (Porcine) (Heparin) 5,000 units SC Q12 MIKE PRN Reason: Protocol Last Admin: 06/16/17 11:14 Dose: Not Given Cefepime HCl (Maxipime 1gm) 1 gm in 100 mls @ 100 mls/hr IVPB Q12 MIKE PRN Reason: Protocol Last Admin: 06/16/17 11:02 Dose: 100 mls/hr Vancomycin HCl (Vancomycin 1gm) 1 gm in 250 mls @ 167 mls/hr IVPB Q12H MIKE PRN Reason: Protocol Last Admin: 06/16/17 11:03 Dose: 167 mls/hr Ibuprofen (Motrin Tab) 800 mg PO Q6H PRN PRN Reason: Fever >100.4 F Last Admin: 06/16/17 16:26 Dose: 800 mg Ondansetron HCl (Zofran Inj) 4 mg IVP Q4H PRN PRN Reason: Nausea/Vomiting Pantoprazole Sodium (Protonix Ec Tab) 40 mg PO 0600 [facility] Last Admin: 06/16/17 06:59 Dose: 40 mg Tamsulosin HCl (Flomax) 0.4 mg PO DAILY [facility] Last Admin: 06/16/17 11:27 Dose: Not Given Tramadol HCl (Ultram) 50 mg PO Q6 PRN PRN Reason: Pain, severe (8-10) Last Admin: 06/16/17 14:44 Dose: 50 mg - Labs Labs: 06/15/17 06:10 06/15/17 06:09 - Constitutional Appears: Well, No Acute Distress - Head Exam Head Exam: ATRAUMATIC, NORMAL INSPECTION, NORMOCEPHALIC - Eye Exam Eye Exam: EOMI, Normal appearance - ENT Exam ENT Exam: Mucous Membranes Moist - Neck Exam Neck Exam: Full ROM - Respiratory Exam Respiratory Exam: Clear to Ausculation Bilateral, NORMAL BREATHING PATTERN. absent: Rales, Rhonchi, Wheezes, Respiratory Distress - Cardiovascular Exam Cardiovascular Exam: RRR, +S1, +S2. absent: JVD - GI/Abdominal Exam GI & Abdominal Exam: Soft, Normal Bowel Sounds. absent: Firm, Guarding, Rigid, Tenderness, Rebound - Extremities Exam Extremities Exam: Normal Inspection. absent: Calf Tenderness, Pedal Edema - Back Exam Back Exam: NORMAL INSPECTION - Neurological Exam Neurological Exam: Alert, Awake, Oriented x3 Additional comments: Antalgic gait noted - Psychiatric Exam Psychiatric exam: Normal Affect, Normal Mood - Skin Skin Exam: Dry, Intact, Normal Color, Warm Assessment and Plan - Assessment and Plan (Free Text) Assessment: 26 y/o M with no PMH presents with pelvic pain and fever. CT of abdomen/pelvis revealed free fluid in pelvis. Pt currently being followed by GI, Surgery, ID, and Ortho. We will request Heme/Onc consult today for bone pain and fever of unknown origin. 1. Groin pain r/o Osteomyelitis vs Osteitis pubis Febrile to 102F no leukocytosis at this time Pelvis MRI shows increase uptake in left pubis Ortho recs appreciated bone scan vague increased uptake in left pubis, no clinical significance Pelvic x-ray - Doubtful osteitis pubis ESR and CRP elevated GI Following, appreciate recs Surgery consulted, no acute surgical intervention ID following Continue Cefepime, and Vancomycin Tolerating regular diet No evidence of fx on recent CT scans. Discussed case with IR, Dr. Romeo Norman, regarding free fluid in pelvis and increased uptake in left pubis No plans for bone biopsy or IR fluid drainage 2. Fever of unknown origin in the setting of bone pain No leukocytosis Mild anemia, normocytic Request Heme/Onc consult 3. Atelectasis Febrile to 102F today. Encourage IS use 4. Left Varicocele Continue abx Continue flomax Urology consulted 5. Transaminitis Increasing at this time Possibly secondary to abx use Hepatitis panel negative Will continue to monitor GI following, appreciate recs 6. PPX Protonix SCDs Discussed case with Dr. Paras Gordon PGY1 <Cristobal Crain - Last Filed: 06/16/17 17:15> Objective - Vital Signs/Intake and Output Vital Signs (last 24 hours): Temp Pulse Resp BP Pulse Ox 102.0 F H 80 12 119/74 98 06/16/17 16:14 06/16/17 16:14 06/16/17 16:14 06/16/17 16:14 06/16/17 16:14 Intake and Output: 06/16/17 06/16/17 06:59 18:59 Intake Total 1530 Output Total 600 Balance 930 - Medications Medications: Current Medications Docusate Sodium (Colace) 100 mg PO DAILY [facility] Last Admin: 06/16/17 11:27 Dose: Not Given Heparin Sodium (Porcine) (Heparin) 5,000 units SC Q12 [facility] PRN Reason: Protocol Last Admin: 06/16/17 11:14 Dose: Not Given Cefepime HCl (Maxipime 1gm) 1 gm in 100 mls @ 100 mls/hr IVPB Q12 [facility] PRN Reason: Protocol Last Admin: 06/16/17 11:02 Dose: 100 mls/hr Vancomycin HCl (Vancomycin 1gm) 1 gm in 250 mls @ 167 mls/hr IVPB Q12H [facility] PRN Reason: Protocol Last Admin: 06/16/17 11:03 Dose: 167 mls/hr Ibuprofen (Motrin Tab) 800 mg PO Q6H PRN PRN Reason: Fever >100.4 F Last Admin: 06/16/17 16:26 Dose: 800 mg Ondansetron HCl (Zofran Inj) 4 mg IVP Q4H PRN PRN Reason: Nausea/Vomiting Pantoprazole Sodium (Protonix Ec Tab) 40 mg PO 0600 [facility] Last Admin: 06/16/17 06:59 Dose: 40 mg Tamsulosin HCl (Flomax) 0.4 mg PO DAILY [facility] Last Admin: 06/16/17 11:27 Dose: Not Given Tramadol HCl (Ultram) 50 mg PO Q6 PRN PRN Reason: Pain, severe (8-10) Last Admin: 06/16/17 14:44 Dose: 50 mg - Labs Labs: 06/15/17 06:10 06/15/17 06:09 Attending/Attestation - Attestation I have personally seen and examined this patient.: Yes I have fully participated in the care of the patient.: Yes I have reviewed all pertinent clinical information, including history, physical exam and plan: Yes Notes (Text): 06/16/17 17:09 26 year old male with no significant past medical history who presented with complaint of fever and lower abdominal/pelvic pain. CT abd/pelvis showed free fluid in the pelvis. Testicular ultrasound showed left varicocele. He had elevated LFTs for which GI is following. Urology and PT evaluation were appreciated. Abdominal/pelvic MRI showed increased signal at left pubic. DDx includes muscle overuse/strain vs stress fracture vs OM as per radiology. This was followed up with pelvic xray and bone scan as above. Orthopedics evaluation was appreciated. Case was also discussed with IR to evaluation for possible fluid drainage or biopsy. Patient last night and today is now having fever. Case discussed with Dr. Alegre regarding adjusting antibiotics. Further workup including hematology/oncology evaluation is requested. Cristobal Crain MD Hospitalist.
[2017-06-16 18:38] LABS: COXSACKIE A10 AB <1:8; COXSACKIE A16 AB <1:8; COXSACKIE A2 AB <1:8; COXSACKIE A7 AB <1:8; COXSACKIE A9 AB <1:8; COXSACKIE B1 <1:8; COXSACKIE B2 <1:8; COXSACKIE B3 <1:8; COXSACKIE B4 <1:8; COXSACKIE B5 <1:8
--- NOTE | 2017-06-16 20:09 | CP.PCM.PN ---
Subjective - Date & Time of Evaluation Date of Evaluation: 06/16/17 Time of Evaluation: 19:03 - Subjective Subjective: Infectious Disease Follow Up: June 16, 2017 26 yo male presenting with worsening lower abdominal and suprapubic pain starting 2 days ago. Initially started with earaches and fevers up to 102 F. This started 4 days ago. He was given Amoxicillin through an Urgent care without any relief. The patient has no significant medical history. Seen by surgery. Free fluid in the abdominal ultrasound. Increased echogenecity in the liver on CT scan. Patient complaining mostly of suprapubic pain around the right groin. Remains on Cefepime and Flagyl for antibiotic coverage. Repeat CT scan shows slightly increased distension of the gallbladder. No specific inflammation of the intestines. Testicular ultrasound is showing left varicocele but no mass or torsion. Afebrile. Cultures negative to date. Chlamydia and Gonorrhoeae is negative. Procalcitonin is nonspecific. MRI showed uptake in pelvic bone but unclear if there is osteomyelitis. Bladder ultrasound showed no bladder abnormalities but still showing fluid in abdominal/pelvic cavity. Bone scan is showing nonspecific vaguely increased uptake of left pubic symphysis compared to right. Finding is of uncertain etiology and doubtful clinical significant. Pelvic X-rays are showing bilateral femoral lesser trochanter old osseous avulsions. Last night fevers restarted with temperatures up to 101.6 F and today up to [address] Calderon today. Objective - Vital Signs/Intake and Output Vital Signs (last 24 hours): Temp Pulse Resp BP Pulse Ox 102 F H 80 20 119/74 98 06/16/17 17:40 06/16/17 17:40 06/16/17 17:40 06/16/17 17:40 06/16/17 17:40 - Medications Medications: Current Medications Docusate Sodium (Colace) 100 mg PO DAILY [facility] Last Admin: 06/16/17 11:27 Dose: Not Given Heparin Sodium (Porcine) (Heparin) 5,000 units SC Q12 MIKE PRN Reason: Protocol Last Admin: 06/16/17 11:14 Dose: Not Given Cefepime HCl (Maxipime 1gm) 1 gm in 100 mls @ 100 mls/hr IVPB Q12 MIKE PRN Reason: Protocol Last Admin: 06/16/17 11:02 Dose: 100 mls/hr Vancomycin HCl (Vancomycin 1gm) 1 gm in 250 mls @ 167 mls/hr IVPB Q12H MIKE PRN Reason: Protocol Last Admin: 06/16/17 11:03 Dose: 167 mls/hr Ibuprofen (Motrin Tab) 800 mg PO Q6H PRN PRN Reason: Fever >100.4 F Last Admin: 06/16/17 16:26 Dose: 800 mg Ondansetron HCl (Zofran Inj) 4 mg IVP Q4H PRN PRN Reason: Nausea/Vomiting Pantoprazole Sodium (Protonix Ec Tab) 40 mg PO 0600 [facility] Last Admin: 06/16/17 06:59 Dose: 40 mg Tamsulosin HCl (Flomax) 0.4 mg PO DAILY [facility] Last Admin: 06/16/17 11:27 Dose: Not Given Tramadol HCl (Ultram) 50 mg PO Q6 PRN PRN Reason: Pain, severe (8-10) Last Admin: 06/16/17 14:44 Dose: 50 mg - Labs Labs: 06/15/17 06:10 06/15/17 06:09 - Constitutional Appears: Non-toxic, No Acute Distress, Chronically Ill - Head Exam Head Exam: ATRAUMATIC, NORMOCEPHALIC - Eye Exam Eye Exam: EOMI, PERRL Pupil Exam: NORMAL ACCOMODATION, PERRL - ENT Exam ENT Exam: Mucous Membranes Moist, Normal External Ear Exam, TM's Normal Bilaterally - Neck Exam Neck Exam: Full ROM, Normal Inspection - Respiratory Exam Respiratory Exam: Clear to Ausculation Bilateral, NORMAL BREATHING PATTERN. absent: Rales, Rhonchi, Wheezes - Cardiovascular Exam Cardiovascular Exam: REGULAR RHYTHM, RRR, +S1, +S2 - GI/Abdominal Exam GI & Abdominal Exam: Soft, Normal Bowel Sounds. absent: Distended, Tenderness Additional comments: right sided suprapubic tenderness - Exam Exam: Scrotal Swelling Additional comments: but no erythema, induration, extra warmth or tenderness. - Extremities Exam Extremities Exam: Normal Inspection Additional comments: ROM limited secondary to pain. - Neurological Exam Neurological Exam: Alert, Awake, CN II-XII Intact, Oriented x3 - Psychiatric Exam Psychiatric exam: Normal Affect, Normal Mood - Skin Skin Exam: Intact, Normal Color Assessment and Plan - Assessment and Plan (Free Text) Assessment: 26 yo male with increasing abdominal pain and fevers up to 102.0 F over the past 4 days. The patient with vague findings in the imaging studies of the abdomen. Hepatitis screen was negative for A, B, and C. The patient with mild elevation of the LFTs. [place] cultures sent. No leukocytosis. No specific findings in the urinalysis. Started on Cefepime and Flagyl for now. Free fluid in the abdomen as seen by Ultrasound. No reported fevers in the past 24 hours but temperature did reach 100.0 F. Supportive care. He is sexually active. Recently in [facility] 2 months ago. Most of the pain is in the suprapubic area now. Remains on Cefepime and Flagyl at this time. Awaiting Chlamydia testing to return. Testicular ultrasound shows a left varicocele. No reaction to Cefepime. On Doxycycline and Cefepime for antibiotic regimen. Add Vancomycin to regimen if no improvement tomorrow. Await full evaluation by Dr. Calderon. Noted negative Chlamydia and Gonorrhoeae studies. Nonspecific Bone scan but findings very weakly correlating to osteomyelitis in the left pubic symphysis. More likely a stress fracture. The patient redeveloped fevers up to 102.0 F in the past 24 hours. IR evaluating the patient. I would check Quantiferon and Malaria/Babesia/Erlichia smear. If possible she if the abdominal fluid is obtainable. I will look into testing for Zika virus as well as [facility] is a hotspot for Zika at this time ( testing is done by [facility] department usually). Thank you for allowing me to participate in the care of the patient, we will follow with you.
[2017-06-16 21:01] LABS: CYTOMEGALOVIRUS AB (IGG) <0.60 U/mL
[2017-06-16 21:15] LABS: CYTOMEGALOVIRUS AB (IGM) <30.00 AU/mL
[2017-06-17] MEDS: Pantoprazole 40 mg EC Tab PO SCH (05:55)
[2017-06-17 07:41] LABS: HEMATOCRIT 38.6 % (42.0-52.0); MEAN CELL VOLUME 90.2 fl (80.0-105.0); MEAN CORPUSCULAR HGB CONC 32.1 g/dl (31.0-37.0); MEAN PLATELET VOLUME 9.6 fl (7.0-11.0); RED CELL DISTRIBUTION WIDTH 13.5 % (11.5-14.5); WHITE BLOOD COUNT 8.4 10^3/ul (4.5-11.0)
[2017-06-17 07:48] LABS: ALB/GLOB RATIO 1.1 (1.1-1.8); ALKALINE PHOSPHATASE 86 U/L (38-126); ALT/SGPT 199 U/L (7-56); AST/SGOT 115 U/L (17-59); BILIRUBIN,TOTAL 0.5 mg/dL (0.2-1.3); BLOOD UREA NITROGEN 14 mg/dL (7-21); CALCIUM 10.5 mg/dL (8.4-10.5); CARBON DIOXIDE 32 mmol/L (21-33); CHLORIDE 98 mmol/L (95-110); GFR AFRICAN-AMERICAN > 60; GLUCOSE,RANDOM 88 mg/dL (70-110); SODIUM 140 mmol/L (132-148); TOTAL PROTEIN 6.9 g/dL (5.8-8.3)
--- NOTE | 2017-06-17 08:25 | CON ---
DATE: 06/16/2017 CHIEF COMPLAINT/HISTORY OF PRESENT ILLNESS: Fever and pubic pain. This is a 26-year-old with no significant past medical history who describes severe groin and pubic pain for several weeks. This has been associated recently with fevers. He is active and works out vigorously. He has traveled to [facility] in the recent past. Imaging demonstrates marrow edema involving the symphysis and pubic rami medially on both sides of the joint. No barbara bone destruction or mass is appreciated. The skin and soft tissues are unremarkable on physical exam. He is very tender. His testicular ultrasound was normal. No epididymitis. There is hydrocele and varicocele present. He is not tender on the scrotum and there is no obvious induration. He has had elevated temperatures and has been treated with antibiotics. He has not improved significantly. He is having difficulty with ambulation. IMPRESSION: Primary differential includes osteitis pubis and/or osteomyelitis. [facility] along with ESR and C-reactive protein. His white count is not elevated. He has had fevers in the hospital. If his pain continues and the diagnosis remains elusive, aspiration of the symphysis can be performed for possible culture. Romeo Norman MD
--- NOTE | 2017-06-17 12:10 | CP.PCM.CON ---
History of Present Illness - History of Present Illness History of Present Illness: Consult Note for Heme/Onc - Dr. Restrepo's service HPI: Patient is a 26yo male with no significant past medical history that presented to [facility] c/o suprapubic abdominal pain associated with fevers for approximately 4 days duration. Of note, patient had traveled to [facility] 2 months prior and has one sexual partner with whom he has been together for several years. During the course of his admission, a CT abd/pelvis was done which revealed free fluid in the pelvis. A pelvic MRI revealed increased uptake in the left pubis. An extensive workup was done which included a hepatitis panel , HIV testing, CMV, , Coxsackie, RPR, Gonorrhea, chlamydia and NORA screen all of which have been negative. Hematology/oncology has been consulted for bone pain and fever of unknown origin. Denies chest pain, palpitations, SOB, nausea, vomiting, focal weakness, numbness, tingling. 12point ROS as per HPI above, otherwise negative PMH: None PSH: None Meds: None Allergies: NKDA Family Hx: Notable for Lung Ca in his father Social Hx: Drinks 8-10 beers on weekends, denies tobacco or illicits; admits to being sexually active with 1 partner Past Patient History - Infectious Disease Hx of Infectious Diseases: None - Tetanus Immunizations Tetanus Immunization: Unknown - Past Social History Smoking Status: Never Smoked - MUSCULOSKELETAL/RHEUMATOLOGICAL Hx Falls: No - PSYCHIATRIC Hx Substance Use: Yes (Socially) - SURGICAL HISTORY Hx Surgeries: No - ANESTHESIA Hx Anesthesia: No Meds Allergies/Adverse Reactions: Allergies Allergy/AdvReac Type Severity Reaction Status Date / Time No Known Allergies Allergy Verified 06/09/17 11:29 - Medications Medications: Current Medications Docusate Sodium (Colace) 100 mg PO DAILY [facility] Last Admin: 06/17/17 10:21 Dose: Not Given Heparin Sodium (Porcine) (Heparin) 5,000 units SC Q12 [facility] PRN Reason: Protocol Last Admin: 06/17/17 10:20 Dose: Not Given Ibuprofen (Motrin Tab) 800 mg PO Q6H PRN PRN Reason: Fever >100.4 F Last Admin: 06/17/17 06:54 Dose: 800 mg Ondansetron HCl (Zofran Inj) 4 mg IVP Q4H PRN PRN Reason: Nausea/Vomiting Pantoprazole Sodium (Protonix Ec Tab) 40 mg PO 0600 [facility] Last Admin: 06/17/17 05:55 Dose: 40 mg Tamsulosin HCl (Flomax) 0.4 mg PO DAILY [facility] Last Admin: 06/17/17 10:19 Dose: Not Given Tramadol HCl (Ultram) 50 mg PO Q6 PRN PRN Reason: Pain, severe (8-10) Last Admin: 06/16/17 22:59 Dose: 50 mg Results - Vital Signs Recent Vital Signs: Last Vital Signs Temp 102 F H 06/16/17 17:40 Pulse 80 06/16/17 17:40 Resp 20 06/16/17 17:40 BP 119/74 06/16/17 17:40 Pulse Ox 98 06/16/17 17:40 - Labs Result Diagrams: 06/17/17 07:00 06/17/17 07:00 Labs: Laboratory Results - last 24 hr 06/15/17 06/16/17 06/17/17 06:09 13:20 07:00 WBC RBC Hgb Hct MCV MCH MCHC RDW Plt Count MPV ESR Sodium 140 Potassium 5.0 Chloride 98 Carbon Dioxide 32 Anion Gap 15 BUN 14 Creatinine 1.0 Est GFR ( Amer) > 60 Est GFR (Non-Af Amer) > 60 Random Glucose 88 Calcium 10.5 Total Bilirubin 0.5 AST 115 H D ALT 199 H Alkaline Phosphatase 86 Lactate Dehydrogenase 537 Total Protein 6.9 Albumin 3.5 Globulin 3.3 Albumin/Globulin Ratio 1.1 Urine Color Yellow Urine Appearance Clear Urine pH 7.0 Ur Specific [place] 1.020 Urine Protein Negative Urine Glucose (UA) Negative Urine Ketones Negative Urine Blood Negative Urine Nitrate Negative Urine Bilirubin Negative Urine Urobilinogen 1.0 H Ur Leukocyte Esterase Negative CMV IgG Ab <0.60 CMV IgM Ab <30.00 06/17/17 07:00 WBC 8.4 RBC 4.28 Hgb 12.4 L Hct 38.6 L MCV 90.2 MCH 29.0 MCHC 32.1 RDW 13.5 Plt Count 400 MPV 9.6 ESR 57 H Sodium Potassium Chloride Carbon Dioxide Anion Gap BUN Creatinine Est GFR ( Amer) Est GFR (Non-Af Amer) Random Glucose Calcium Total Bilirubin AST ALT Alkaline Phosphatase Lactate Dehydrogenase Total Protein Albumin Globulin Albumin/Globulin Ratio Urine Color Urine Appearance Urine pH Ur Specific [place] Urine Protein Urine Glucose (UA) Urine Ketones Urine Blood Urine Nitrate Urine Bilirubin Urine Urobilinogen Ur Leukocyte Esterase CMV IgG Ab CMV IgM Ab Assessment & Plan - Assessment and Plan (Free Text) Plan: 26yo Male with no significant past medical history presents with pelvic pain and fever of unknown origin. Heme/Onc consulted for bone pain/FUO - Date & Time Date: 06/17/17 Time: 12:15
--- NOTE | 2017-06-17 16:04 | CP.PCM.PN ---
Subjective - Date & Time of Evaluation Date of Evaluation: 06/17/17 Time of Evaluation: 14:30 - Subjective Subjective: Infectious Disease Follow Up: June 17, 2017 26 yo male presenting with worsening lower abdominal and suprapubic pain starting 2 days ago. Initially started with earaches and fevers up to 102 F. This started 4 days ago. He was given Amoxicillin through an Urgent care without any relief. The patient has no significant medical history. Seen by surgery. Free fluid in the abdominal ultrasound. Increased echogenecity in the liver on CT scan. Patient complaining mostly of suprapubic pain around the right groin. Remains on Cefepime and Flagyl for antibiotic coverage. Repeat CT scan shows slightly increased distension of the gallbladder. No specific inflammation of the intestines. Testicular ultrasound is showing left varicocele but no mass or torsion. Afebrile. Cultures negative to date. Chlamydia and Gonorrhoeae is negative. Procalcitonin is nonspecific. MRI showed uptake in pelvic bone but unclear if there is osteomyelitis. Bladder ultrasound showed no bladder abnormalities but still showing fluid in abdominal/pelvic cavity. Bone scan is showing nonspecific vaguely increased uptake of left pubic symphysis compared to right. Finding is of uncertain etiology and doubtful clinical significant. Pelvic X-rays are showing bilateral femoral lesser trochanter old osseous avulsions. Fevers up to 102.0 F last night. CMV tests negative. Objective - Vital Signs/Intake and Output Vital Signs (last 24 hours): Temp Pulse Resp BP Pulse Ox 102 F H 80 20 119/74 98 06/16/17 17:40 06/16/17 17:40 06/16/17 17:40 06/16/17 17:40 06/16/17 17:40 Intake and Output: 06/17/17 06/17/17 06:59 18:59 Intake Total 240 Output Total 450 Balance -210 - Medications Medications: Current Medications Docusate Sodium (Colace) 100 mg PO DAILY [facility] Last Admin: 06/17/17 10:21 Dose: Not Given Heparin Sodium (Porcine) (Heparin) 5,000 units SC Q12 [facility] PRN Reason: Protocol Last Admin: 06/17/17 10:20 Dose: Not Given Ibuprofen (Motrin Tab) 800 mg PO Q6H PRN PRN Reason: Fever >100.4 F Last Admin: 06/17/17 06:54 Dose: 800 mg Ondansetron HCl (Zofran Inj) 4 mg IVP Q4H PRN PRN Reason: Nausea/Vomiting Pantoprazole Sodium (Protonix Ec Tab) 40 mg PO 0600 [facility] Last Admin: 06/17/17 05:55 Dose: 40 mg Tamsulosin HCl (Flomax) 0.4 mg PO DAILY [facility] Last Admin: 06/17/17 10:19 Dose: Not Given Tramadol HCl (Ultram) 50 mg PO Q6 PRN PRN Reason: Pain, severe (8-10) Last Admin: 06/16/17 22:59 Dose: 50 mg - Labs Labs: 06/17/17 07:00 06/17/17 07:00 - Constitutional Appears: Non-toxic, No Acute Distress, Chronically Ill - Head Exam Head Exam: ATRAUMATIC, NORMOCEPHALIC - Eye Exam Eye Exam: EOMI, PERRL Pupil Exam: NORMAL ACCOMODATION, PERRL - ENT Exam ENT Exam: Mucous Membranes Moist, Normal External Ear Exam, TM's Normal Bilaterally - Neck Exam Neck Exam: Full ROM, Normal Inspection - Respiratory Exam Respiratory Exam: Clear to Ausculation Bilateral, NORMAL BREATHING PATTERN. absent: Rales, Rhonchi, Wheezes - Cardiovascular Exam Cardiovascular Exam: REGULAR RHYTHM, RRR, +S1, +S2 - GI/Abdominal Exam GI & Abdominal Exam: Soft, Tenderness, Normal Bowel Sounds. absent: Distended Additional comments: right sided suprapubic tenderness - Exam Exam: Scrotal Swelling Additional comments: but no erythema, induration, extra warmth or tenderness. - Extremities Exam Extremities Exam: Full ROM, Normal Inspection Additional comments: ROM limited secondary to pain. - Neurological Exam Neurological Exam: Alert, Awake, CN II-XII Intact, Oriented x3 - Psychiatric Exam Psychiatric exam: Normal Affect, Normal Mood - Skin Skin Exam: Intact, Normal Color Assessment and Plan - Assessment and Plan (Free Text) Assessment: 26 yo male with increasing abdominal pain and fevers up to 102.0 F over the past 4 days. The patient with vague findings in the imaging studies of the abdomen. Hepatitis screen was negative for A, B, and C. The patient with mild elevation of the LFTs. [facility] cultures sent. No leukocytosis. No specific findings in the urinalysis. Started on Cefepime and Flagyl for now. Free fluid in the abdomen as seen by Ultrasound. No reported fevers in the past 24 hours but temperature did reach 100.0 F. Supportive care. He is sexually active. Recently in [place] 2 months ago. Most of the pain is in the suprapubic area now. Remains on Cefepime and Flagyl at this time. Awaiting Chlamydia testing to return. Testicular ultrasound shows a left varicocele. No reaction to Cefepime. On Doxycycline and Cefepime for antibiotic regimen. Add Vancomycin to regimen if no improvement tomorrow. Await full evaluation by Dr. Calderon. Noted negative Chlamydia and Gonorrhoeae studies. Nonspecific Bone scan but findings very weakly correlating to osteomyelitis in the left pubic symphysis. More likely a stress fracture. The patient redeveloped fevers up to 102.0 F in the past 24 hours. IR evaluating the patient. I would check Quantiferon and Malaria/Babesia/Erlichia smear. If possible she if the abdominal fluid is obtainable. I will look into testing for Zika virus as well as [facility] is a hotspot for Zika at this time ( testing needs approval by [facility] - awaiting call back). Awaiting NM scan. Thank you for allowing me to participate in the care of the patient, we will follow with you.
--- NOTE | 2017-06-17 16:46 | CON ---
ONCOLOGY CONSULTATION HISTORY OF PRESENT ILLNESS: This is a 26-year-old man, cigarettes negative, alcohol negative, allergies negative. 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 Never had any operations before. Never been in the hospital before. The patient complains of two separate kinds of pain. The patient started having left inguinal groin pain, this is for about three or four weeks. He describes the kind of week that he had. 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 Within that same week, he was golfing, he was running, he was playing basketball. Virtually, very physical kind of day and he felt that he had pulled that muscle. About a week ago, he woke with fever of about 102 degrees and suprapubic pain. This was completely different kind of a pain. He was not urinating any blood. No frequency. He had no rectal pain. No rectal discharge or rectal bleeding. After several days, he came to the hospital for the fever control. PHYSICAL EXAMINATION: SKIN: No petechiae. No bruises. HEENT: Anicteric. NODES: Nonpalpable in axillary, cervical, supraclavicular, or inguinal regions. LUNGS: Clear at present. No vertebral tenderness. HEART: S1 and S2. No rubs, gallop or murmur. BREASTS: No mass. ABDOMEN: Shows no liver, no spleen, no tenderness, no rebound, and no mass. Also, he had no tenderness to look for urinary infection. He does have suprapubic tenderness. EXTREMITIES: No edema. CENTRAL NERVOUS SYSTEM: No focal findings. There is still some confusion as to the x-rays in terms of the bone scan, the MRI, etc., but reviewing nonspecific findings in the bone. There is no specific area on the bone scan or the MRI that would indicate either an osteomyelitis or some kind of lesion. IMPRESSION: My impression is that this is still some kind of urinary prostatitis kind of problem. They asked me to some place to biopsy the bone. I said there is nothing specific and it is unclear where to do this to do a biopsy in terms of instrumentation. I told then I will ask Dr. Avelar to reevaluate the patient, maybe there is some clinical prostatitis here and I asked Dr. Alegre to reevaluate the antibiotics, maybe he needs to be off the antibiotics for a period of time to get re-cultured, but right know I do not see a role for myself in terms of directing a biopsy of the bone. He is going for a white cell nuclear medicine scan, we will see if that shows something. Bird Johnson MD
--- NOTE | 2017-06-17 17:24 | CP.PCM.PN ---
<Isaiah Gordon - Last Filed: 06/17/17 17:11> Subjective - Date & Time of Evaluation Date of Evaluation: 06/17/17 Time of Evaluation: 11:00 - Subjective Subjective: Medicine Progress note. Dr. Crain Pt seen and examined at bedside. no acute events overnight. Patient still febrile to 102F. Patient continuing to work with PT. Still c/o antalgic gait. Patient still with pubic pain. No N/V/D. no Abd pain. No CP/SOB. no Cough. no urinary complaints. Objective - Vital Signs/Intake and Output Vital Signs (last 24 hours): Temp Pulse Resp BP Pulse Ox 102 F H 80 20 119/74 98 06/16/17 17:40 06/16/17 17:40 06/16/17 17:40 06/16/17 17:40 06/16/17 17:40 Intake and Output: 06/17/17 06/17/17 06:59 18:59 Intake Total 240 Output Total 450 Balance -210 - Medications Medications: Current Medications Docusate Sodium (Colace) 100 mg PO DAILY [facility] Last Admin: 06/17/17 10:21 Dose: Not Given Heparin Sodium (Porcine) (Heparin) 5,000 units SC Q12 [facility] PRN Reason: Protocol Last Admin: 06/17/17 10:20 Dose: Not Given Ibuprofen (Motrin Tab) 800 mg PO Q6H PRN PRN Reason: Fever >100.4 F Last Admin: 06/17/17 06:54 Dose: 800 mg Ondansetron HCl (Zofran Inj) 4 mg IVP Q4H PRN PRN Reason: Nausea/Vomiting Pantoprazole Sodium (Protonix Ec Tab) 40 mg PO 0600 [facility] Last Admin: 06/17/17 05:55 Dose: 40 mg Tamsulosin HCl (Flomax) 0.4 mg PO DAILY [facility] Last Admin: 06/17/17 10:19 Dose: Not Given Tramadol HCl (Ultram) 50 mg PO Q6 PRN PRN Reason: Pain, severe (8-10) Last Admin: 06/16/17 22:59 Dose: 50 mg - Labs Labs: 06/17/17 07:00 06/17/17 07:00 - Constitutional Appears: Well, No Acute Distress - Head Exam Head Exam: ATRAUMATIC, NORMAL INSPECTION, NORMOCEPHALIC - Eye Exam Eye Exam: EOMI, Normal appearance - ENT Exam ENT Exam: Mucous Membranes Moist - Neck Exam Neck Exam: Full ROM - Respiratory Exam Respiratory Exam: Clear to Ausculation Bilateral, NORMAL BREATHING PATTERN. absent: Decreased Breath Sounds, Rhonchi, Wheezes, Respiratory Distress - Cardiovascular Exam Cardiovascular Exam: RRR, +S1, +S2. absent: JVD - GI/Abdominal Exam GI & Abdominal Exam: Soft. absent: Firm, Guarding, Rigid, Tenderness - Exam Additional comments: Left pubis tender to palpation. - Extremities Exam Extremities Exam: Normal Inspection. absent: Calf Tenderness - Neurological Exam Additional comments: antalgic gait - Psychiatric Exam Psychiatric exam: Normal Affect, Normal Mood - Skin Skin Exam: Dry, Intact, Normal Color, Warm Assessment and Plan - Assessment and Plan (Free Text) Assessment: 26 y/o M with no PMH presents with pelvic pain and fever. CT of abdomen/pelvis revealed free fluid in pelvis. Pt currently being followed by GI, Surgery, ID, Interventional Radiology, and Ortho. We have requested Heme/Onc consult and it was placed yesterday (Dr. Stacy) . Family discussed case with Dr. Restrepo and would prefer to consult him. Discussed case with Dr. Johnson, covering for Dr. Stacy, he states that he will be out of town and agrees to having Dr. Restrepo's team take over the consult. 1. Groin pain r/o Osteomyelitis vs Osteitis pubis Febrile to 102F no leukocytosis at this time Pelvis MRI shows increase uptake in left pubis Ortho recs appreciated bone scan shows vague increased uptake in left pubis, no clinical significance Pelvic x-ray - Doubtful osteitis pubis ESR and CRP elevated GI Following, appreciate recs Symptoms unlikely due to GI process. Transaminases likely secondary to Abx vs. secondary to Pubic pain process. Surgery consulted, no acute surgical intervention ID following Would like to hold all Abx until WBC tagged NM study in completed. Discussed case with IR, Dr. Romeo Norman, regarding free fluid in pelvis and increased uptake in left pubis No plans for bone biopsy or IR fluid drainage recommends WBC tagged NM study Tolerating regular diet No evidence of fx on recent CT scans. 2. Fever of unknown origin in the setting of bone pain No leukocytosis Mild anemia, normocytic Request Heme/Onc consult 3. Atelectasis Febrile to 102F Encourage IS use 4. Left Varicocele Continue flomax Urology consulted current symptoms unlikely due to Urologic process 5. Transaminitis Possibly secondary to abx use Hepatitis panel negative Will continue to monitor GI following, appreciate recs unlikely due to GI process 6. PPX Protonix SCDs Discussed case with Dr. Paras Gordon PGY1 <Cristobal Crain - Last Filed: 06/17/17 20:13> Objective - Vital Signs/Intake and Output Vital Signs (last 24 hours): Temp Pulse Resp BP Pulse Ox 102.8 F H 83 20 92/53 L 99 06/17/17 19:35 06/17/17 17:31 06/17/17 17:31 06/17/17 17:31 06/17/17 17:31 - Medications Medications: Current Medications Docusate Sodium (Colace) 100 mg PO DAILY [facility] Last Admin: 06/17/17 10:21 Dose: Not Given Heparin Sodium (Porcine) (Heparin) 5,000 units SC Q12 [facility] PRN Reason: Protocol Last Admin: 06/17/17 10:20 Dose: Not Given Ibuprofen (Motrin Tab) 800 mg PO Q6H PRN PRN Reason: Fever >100.4 F Last Admin: 06/17/17 18:34 Dose: 800 mg Ondansetron HCl (Zofran Inj) 4 mg IVP Q4H PRN PRN Reason: Nausea/Vomiting Pantoprazole Sodium (Protonix Ec Tab) 40 mg PO 0600 [facility] Last Admin: 06/17/17 05:55 Dose: 40 mg Tamsulosin HCl (Flomax) 0.4 mg PO DAILY [facility] Last Admin: 06/17/17 10:19 Dose: Not Given Tramadol HCl (Ultram) 50 mg PO Q6 PRN PRN Reason: Pain, severe (8-10) Last Admin: 06/17/17 18:26 Dose: 50 mg - Labs Labs: 06/17/17 07:00 06/17/17 07:00 Attending/Attestation - Attestation I have personally seen and examined this patient.: Yes I have fully participated in the care of the patient.: Yes I have reviewed all pertinent clinical information, including history, physical exam and plan: Yes Notes (Text): 06/17/17 20:08 26 year old male with no significant past medical history who presented with complaint of fever and lower abdominal/pelvic pain. CT abd/pelvis showed free fluid in the pelvis. Testicular ultrasound showed left varicocele. He had elevated LFTs for which GI is following. Case was discussed with Dr. Jara today. He was also evaluated by urology and physical therapy. Abdominal/pelvic MRI showed increased signal at left pubic. DDx included muscle overuse/strain vs stress fracture vs OM as per radiology. However this was followed up with pelvic xray and bone scan as above. IR and orthopedics evaluation were also appreciated. He is for NM scan today. IV antibiotics currently on hold as per ID for now. Hematology evaluation was requested and echocardiogram is ordered. Cristobal Crain MD Hospitalist.
[2017-06-17 18:00] LABS: LYME IGM NEGATIVE (NEGATIVE)
[2017-06-17 18:04] LABS: LYME IGG NEGATIVE (NEGATIVE)
[2017-06-18] MEDS: Pantoprazole 40 mg EC Tab PO SCH (05:54)
[2017-06-18 06:59] LABS: ALB/GLOB RATIO 1.2 (1.1-1.8); ALKALINE PHOSPHATASE 88 U/L (38-126); ALT/SGPT 152 U/L (7-56); AST/SGOT 80 U/L (17-59); BILIRUBIN,TOTAL 0.4 mg/dL (0.2-1.3); BLOOD UREA NITROGEN 15 mg/dL (7-21); CALCIUM 8.8 mg/dL (8.4-10.5); CARBON DIOXIDE 31 mmol/L (21-33); CHLORIDE 98 mmol/L (98-107); GFR AFRICAN-AMERICAN > 60; GLUCOSE,RANDOM 94 mg/dL (70-110); SODIUM 138 mmol/L (132-148); TOTAL PROTEIN 6.5 g/dL (5.8-8.3)
[2017-06-18 07:45] LABS: HEMATOCRIT 37.5 % (42.0-52.0); MEAN CELL VOLUME 90.6 fl (80.0-105.0); MEAN CORPUSCULAR HEMOGLOBIN 28.5 pg (25.0-35.0); MEAN CORPUSCULAR HGB CONC 31.5 g/dl (31.0-37.0); MEAN PLATELET VOLUME 9.7 fl (7.0-11.0); RED CELL DISTRIBUTION WIDTH 13.5 % (11.5-14.5); WHITE BLOOD COUNT 9.3 10^3/ul (4.5-11.0)
[2017-06-18 11:06] LABS: RETIC% 1.81 % (0.5-1.5)
--- NOTE | 2017-06-18 13:18 | CP.PCM.PN ---
<Isaiah Gordon - Last Filed: 06/18/17 13:12> Subjective - Date & Time of Evaluation Date of Evaluation: 06/18/17 Time of Evaluation: 10:20 - Subjective Subjective: Medicine Progress note. Dr. Crain Pt seen and examined at bedside. Pt completed NM study late yesterday. Still spiking fevers. Still with pubic pain and gait dysfunction. No new complaints. Objective - Vital Signs/Intake and Output Vital Signs (last 24 hours): Temp Pulse Resp BP Pulse Ox 99.2 F 78 20 111/65 95 06/18/17 06:00 06/18/17 06:00 06/18/17 06:00 06/18/17 06:00 06/18/17 06:00 Intake and Output: 06/18/17 06/18/17 06:59 18:59 Intake Total 660 240 Output Total 750 1000 Balance -90 -760 - Medications Medications: Current Medications Docusate Sodium (Colace) 100 mg PO DAILY [facility] Last Admin: 06/18/17 10:25 Dose: 100 mg Doxycycline Hyclate (Doryx) 100 mg PO Q12 [facility] PRN Reason: Protocol Last Admin: 06/18/17 11:36 Dose: 100 mg Ibuprofen (Motrin Tab) 800 mg PO Q6H PRN PRN Reason: Fever >100.4 F Last Admin: 06/18/17 11:37 Dose: 800 mg Ondansetron HCl (Zofran Inj) 4 mg IVP Q4H PRN PRN Reason: Nausea/Vomiting Pantoprazole Sodium (Protonix Ec Tab) 40 mg PO 0600 [facility] Last Admin: 06/18/17 05:54 Dose: 40 mg Tamsulosin HCl (Flomax) 0.4 mg PO DAILY [facility] Last Admin: 06/18/17 10:25 Dose: 0.4 mg Tramadol HCl (Ultram) 50 mg PO Q6 PRN PRN Reason: Pain, severe (8-10) Last Admin: 06/17/17 18:26 Dose: 50 mg - Labs Labs: 06/18/17 06:00 06/18/17 06:00 - Constitutional Appears: Non-toxic - Head Exam Head Exam: ATRAUMATIC, NORMAL INSPECTION, NORMOCEPHALIC - Eye Exam Eye Exam: EOMI, Normal appearance - ENT Exam ENT Exam: Mucous Membranes Moist - Respiratory Exam Respiratory Exam: Clear to Ausculation Bilateral, NORMAL BREATHING PATTERN. absent: Decreased Breath Sounds, Rales, Rhonchi, Wheezes, Respiratory Distress - Cardiovascular Exam Cardiovascular Exam: RRR, +S1, +S2. absent: JVD - GI/Abdominal Exam GI & Abdominal Exam: Soft. absent: Distended, Firm, Guarding, Rigid, Tenderness , Mass - Extremities Exam Extremities Exam: Normal Inspection. absent: Calf Tenderness - Neurological Exam Neurological Exam: Alert, Awake, Oriented x3 - Psychiatric Exam Psychiatric exam: Normal Affect, Normal Mood - Skin Skin Exam: Dry, Intact, Normal Color, Warm Assessment and Plan - Assessment and Plan (Free Text) Assessment: 26 y/o M with no PMH presents with pelvic pain and fever. CT of abdomen/pelvis revealed free fluid in pelvis. Pt currently being followed by GI, Surgery, ID, Interventional Radiology, and Ortho. We have requested heme/onc, Dr. Restrepo, as per family. Dr. Johnson acknowledged yesterday and will differ case to Dr. Restrepo team recs. We have requested Neuro consult today for persistent gait dysfunction. 1. Groin pain r/o Osteomyelitis vs Osteitis pubis Febrile to 102F no leukocytosis at this time Pelvis MRI shows increase uptake in left pubis Ortho recs appreciated bone scan shows vague increased uptake in left pubis, no clinical significance Pelvic x-ray - Doubtful osteitis pubis ESR and CRP elevated GI Following, appreciate recs Symptoms unlikely due to GI process. Transaminases likely secondary to Abx vs. secondary to Pubic pain process. Surgery consulted, no acute surgical intervention ID following Restarted Doxycycline 100mg PO BID Discussed case with IR, Dr. Romeo Norman, regarding free fluid in pelvis and increased uptake in left pubis No plans for bone biopsy or IR fluid drainage Pending NM study results from completed test yesterday. Discussed with SD tech who states that he will place call out to on-call radiologist for results. Tolerating regular diet No evidence of fx on recent CT scans. Neurology consult requested, appreciate recs 2. Fever of unknown origin in the setting of bone pain No leukocytosis Mild anemia, normocytic Awaiting Heme/Onc consult 3. Atelectasis continues to spike fevers clinical course of fevers unlikely due to atelectasis Encourage IS use 4. Left Varicocele Continue flomax Urology consulted current symptoms unlikely due to Urologic process 5. Transaminitis Possibly secondary to abx use Hepatitis panel negative Will continue to monitor GI following, appreciate recs unlikely due to GI process 6. PPX Protonix SCDs Discussed case with Dr. Paras Gordon PGY1 <Cristobal Crain - Last Filed: 06/18/17 15:37> Objective - Vital Signs/Intake and Output Vital Signs (last 24 hours): Temp Pulse Resp BP Pulse Ox 99.2 F 78 20 111/65 95 06/18/17 06:00 06/18/17 06:00 06/18/17 06:00 06/18/17 06:00 06/18/17 06:00 Intake and Output: 06/18/17 06/18/17 06:59 18:59 Intake Total 660 240 Output Total 750 1000 Balance -90 -760 - Medications Medications: Current Medications Docusate Sodium (Colace) 100 mg PO DAILY [facility] Last Admin: 06/18/17 10:25 Dose: 100 mg Doxycycline Hyclate (Doryx) 100 mg PO Q12 [facility] PRN Reason: Protocol Last Admin: 06/18/17 11:36 Dose: 100 mg Ibuprofen (Motrin Tab) 800 mg PO Q6H PRN PRN Reason: Fever >100.4 F Last Admin: 06/18/17 11:37 Dose: 800 mg Ondansetron HCl (Zofran Inj) 4 mg IVP Q4H PRN PRN Reason: Nausea/Vomiting Pantoprazole Sodium (Protonix Ec Tab) 40 mg PO 0600 [facility] Last Admin: 06/18/17 05:54 Dose: 40 mg Tamsulosin HCl (Flomax) 0.4 mg PO DAILY [facility] Last Admin: 06/18/17 10:25 Dose: 0.4 mg Tramadol HCl (Ultram) 50 mg PO Q6 PRN PRN Reason: Pain, severe (8-10) Last Admin: 06/17/17 18:26 Dose: 50 mg - Labs Labs: 06/18/17 06:00 06/18/17 06:00 Attending/Attestation - Attestation I have personally seen and examined this patient.: Yes I have fully participated in the care of the patient.: Yes I have reviewed all pertinent clinical information, including history, physical exam and plan: Yes Notes (Text): 06/18/17 15:27 26 year old male with no significant past medical history who presented with complaint of fever and lower abdominal/pelvic pain. CT abd/pelvis showed free fluid in the pelvis. Testicular ultrasound showed left varicocele. He had elevated LFTs for which GI is following. Continue to monitor. He was also evaluated by urology and physical therapy. Abdominal/pelvic MRI showed increased signal at left pubic. DDx included muscle overuse/strain vs stress fracture vs OM as per radiology. However this was followed up with pelvic xray and bone scan as above. IR and orthopedics evaluation were also appreciated. He had NM scan yesterday pending official read. Will resume doxycycline for now. He continues to have fever. Will follow up on repeat workup and echocardiogram. Neurology evaluation was also requested. Will follow up with recommendations. Cristobal Crain MD Hospitalist.
--- NOTE | 2017-06-18 14:45 | CP.PCM.CON ---
History of Present Illness - History of Present Illness History of Present Illness: Mr. Mckoy is a 26-year-old man with no significant past medical history, who states that he traveled to [facility] about 6 weeks ago. He is active in many sports and states that he feels that he may have pulled a muscle in his groin two weeks ago. Although he has been feeling abdominal and pubic tenderness for several weeks. The pain has become severe and limits his movements. In fact, he is having difficulty with ambulation. Labs showed elevated CRP, liver enzymes were increased, and there was a mass in the liver as well as a collection in the pubic symphysis. Neurology was consulted to assist with the gait instability. Review of Systems - Review of Systems All systems: reviewed and no additional remarkable complaints except Past Patient History - Infectious Disease Hx of Infectious Diseases: None - Tetanus Immunizations Tetanus Immunization: Unknown - Past Social History Smoking Status: Never Smoked - MUSCULOSKELETAL/RHEUMATOLOGICAL Hx Falls: No - PSYCHIATRIC Hx Substance Use: Yes (Socially) - SURGICAL HISTORY Hx Surgeries: No - ANESTHESIA Hx Anesthesia: No Meds Allergies/Adverse Reactions: Allergies Allergy/AdvReac Type Severity Reaction Status Date / Time No Known Allergies Allergy Verified 06/09/17 11:29 - Medications Medications: Current Medications Docusate Sodium (Colace) 100 mg PO DAILY [facility] Last Admin: 06/18/17 10:25 Dose: 100 mg Doxycycline Hyclate (Doryx) 100 mg PO Q12 [facility] PRN Reason: Protocol Last Admin: 06/18/17 11:36 Dose: 100 mg Ibuprofen (Motrin Tab) 800 mg PO Q6H PRN PRN Reason: Fever >100.4 F Last Admin: 06/18/17 11:37 Dose: 800 mg Ondansetron HCl (Zofran Inj) 4 mg IVP Q4H PRN PRN Reason: Nausea/Vomiting Pantoprazole Sodium (Protonix Ec Tab) 40 mg PO 0600 [facility] Last Admin: 06/18/17 05:54 Dose: 40 mg Tamsulosin HCl (Flomax) 0.4 mg PO DAILY [facility] Last Admin: 06/18/17 10:25 Dose: 0.4 mg Tramadol HCl (Ultram) 50 mg PO Q6 PRN PRN Reason: Pain, severe (8-10) Last Admin: 06/17/17 18:26 Dose: 50 mg Physical Exam - Constitutional Appears: Well - Eye Exam Eye Exam: EOMI, Normal appearance, PERRL - ENT Exam ENT Exam: Mucous Membranes Moist, Normal Exam - Respiratory Exam Respiratory Exam: Clear to Auscultation Bilateral, NORMAL BREATHING PATTERN - Cardiovascular Exam Cardiovascular Exam: REGULAR RHYTHM, +S1, +S2 - GI/Abdominal Exam GI & Abdominal Exam: Normal Bowel Sounds, Soft. absent: Tenderness - Rectal Exam Rectal Exam: Deferred - Extremities Exam Extremities exam: Positive for: normal inspection - Back Exam Back exam: NORMAL INSPECTION - Neurological Exam Neurological exam: Abnormal Gait, CN II-XII Intact, Oriented x3, Reflexes Normal Additional comments: antalgic gait - Expanded Neurological Exam Expanded Patient oriented to: person, place, time Cranial nerves: EOM's Intact: Normal, Facial Sensation: Normal, Nystagmus: Abnormal Right Ataxia: No Cerebellar Function: Finger to Nose: Normal, Heel to Mims: Normal Upper motor neuron: Babinski Sign: Normal Sensory exam: Lower Extremity Light Touch: Normal, Upper Extremity Light Touch: Normal, Upper Extremity Pin Prick: Normal Neuro motor strength exam: Left Upper Extremity: 5, Right Upper Extremity: 5, Left Lower Extremity: 4 (Weakness on hip flexion/extension and adduction), Right Lower Extremity: 4 (Weakness on hip flexion/extension and adduction) DTR: Bicep Right: 2+, Patellar Left: 2+, Patellar Right: 2+ - Psychiatric Exam Psychiatric exam: Normal Affect, Normal Mood - Skin Skin Exam: Dry, Intact, Normal Color, Warm Results - Vital Signs Recent Vital Signs: Last Vital Signs Temp 99.2 F 06/18/17 06:00 Pulse 78 06/18/17 06:00 Resp 20 06/18/17 06:00 BP 111/65 06/18/17 06:00 Pulse Ox 95 06/18/17 06:00 - Labs Result Diagrams: 06/18/17 06:00 06/18/17 06:00 Labs: Laboratory Results - last 24 hr 06/15/17 06/18/17 06/18/17 06:09 06:00 06:00 WBC 9.3 RBC 4.14 Hgb 11.8 L Hct 37.5 L MCV 90.6 MCH 28.5 MCHC 31.5 RDW 13.5 Plt Count 388 MPV 9.7 Retic Count Sodium 138 Potassium 4.0 Chloride 98 Carbon Dioxide 31 Anion Gap 13 BUN 15 Creatinine 1.0 Est GFR ( Amer) > 60 Est GFR (Non-Af Amer) > 60 Random Glucose 94 Calcium 8.8 Total Bilirubin 0.4 AST 80 H D ALT 152 H Alkaline Phosphatase 88 Total Protein 6.5 Albumin 3.5 Globulin 3.0 Albumin/Globulin Ratio 1.2 Lyme Disease IgG Ab (IFA) Negative Lyme Disease IgM Ab Negative 06/18/17 11:01 WBC RBC Hgb Hct MCV MCH MCHC RDW Plt Count MPV Retic Count 1.81 H Sodium Potassium Chloride Carbon Dioxide Anion Gap BUN Creatinine Est GFR ( Amer) Est GFR (Non-Af Amer) Random Glucose Calcium Total Bilirubin AST ALT Alkaline Phosphatase Total Protein Albumin Globulin Albumin/Globulin Ratio Lyme Disease IgG Ab (IFA) Lyme Disease IgM Ab Assessment & Plan (1) Gait disturbance Assessment and Plan: The gait appears antalgic and is most likely due to the pain created by the fluid collection in the pubic symphysis maybe representing an osteitis pubis. However, since there has been clear inflammation and serum markers that are consistent with this, involvement of the thoracic and lumbar spine should be ruled out. I recommend obtaining an MRI of the thoracic and lumbar spine with and without contrast. I also recommend giving 2-3 doses of decadron 10 mg IV to determine if the inflammation can be reduced to decrease pain and improve movement. Thank you. Status: Acute Priority: High
--- NOTE | 2017-06-18 15:38 | NM ---
PROCEDURE: Ceretec scan symphysis pubis. HISTORY: Osteomyelitis symphysis pubis. COMPARISON: None available. TECHNIQUE: Following administration of 15.7 miCu of Tc MDP Ceretec radial labeled white blood cells was performed with subsequent images produced in multiple planes captured at the level of the pelvis. FINDINGS: Normal uptake is appreciate the urinary bladder excreted by the kidneys as well as at the visualize right lobe liver inferiorly. No suspicious uptake is appreciate does suggest osteomyelitis throughout the pelvis including the symphysis pubis. IMPRESSION: Negative for osteomyelitis of the symphysis pubis.
--- NOTE | 2017-06-18 19:01 | CP.PCM.PN ---
Subjective - Date & Time of Evaluation Date of Evaluation: 06/18/17 Time of Evaluation: 18:00 - Subjective Subjective: Infectious Disease Follow Up: June 18, 2017 26 yo male presenting with worsening lower abdominal and suprapubic pain starting 2 days ago. Initially started with earaches and fevers up to 102 F. This started 4 days ago. He was given Amoxicillin through an Urgent care without any relief. The patient has no significant medical history. Seen by surgery. Free fluid in the abdominal ultrasound. Increased echogenecity in the liver on CT scan. Patient complaining mostly of suprapubic pain around the right groin. Remains on Cefepime and Flagyl for antibiotic coverage. Repeat CT scan shows slightly increased distension of the gallbladder. No specific inflammation of the intestines. Testicular ultrasound is showing left varicocele but no mass or torsion. Afebrile. Cultures negative to date. Chlamydia and Gonorrhoeae is negative. Procalcitonin is nonspecific. MRI showed uptake in pelvic bone but unclear if there is osteomyelitis. Bladder ultrasound showed no bladder abnormalities but still showing fluid in abdominal/pelvic cavity. Bone scan is showing nonspecific vaguely increased uptake of left pubic symphysis compared to right. Finding is of uncertain etiology and doubtful clinical significant. Pelvic X-rays are showing bilateral femoral lesser trochanter old osseous avulsions. Fevers up to 102.8 F yesterday. CMV tests negative. Coxsackie negative. Lyme negative. RPR negative. Hepatitis B and C negative. HIV negative. Malaria and Babesia smear negative. Chlamydia negative and Gonorrhoea negative. Influenza negative. Nuclear Medicine scan negative. Noted Neurology evaluation. Objective - Vital Signs/Intake and Output Vital Signs (last 24 hours): Temp Pulse Resp BP Pulse Ox 98.3 F 95 H 20 112/75 95 06/18/17 16:45 06/18/17 16:45 06/18/17 16:45 06/18/17 16:45 06/18/17 16:45 Intake and Output: 06/18/17 06/18/17 06:59 18:59 Intake Total 660 240 Output Total 750 1000 Balance -90 -760 - Medications Medications: Current Medications Docusate Sodium (Colace) 100 mg PO DAILY [facility] Last Admin: 06/18/17 10:25 Dose: 100 mg Doxycycline Hyclate (Doryx) 100 mg PO Q12 [facility] PRN Reason: Protocol Last Admin: 06/18/17 11:36 Dose: 100 mg Ibuprofen (Motrin Tab) 800 mg PO Q6H PRN PRN Reason: Fever >100.4 F Last Admin: 06/18/17 11:37 Dose: 800 mg Ondansetron HCl (Zofran Inj) 4 mg IVP Q4H PRN PRN Reason: Nausea/Vomiting Pantoprazole Sodium (Protonix Ec Tab) 40 mg PO 0600 [facility] Last Admin: 06/18/17 05:54 Dose: 40 mg Tamsulosin HCl (Flomax) 0.4 mg PO DAILY [facility] Last Admin: 06/18/17 10:25 Dose: 0.4 mg Tramadol HCl (Ultram) 50 mg PO Q6 PRN PRN Reason: Pain, severe (8-10) Last Admin: 06/17/17 18:26 Dose: 50 mg - Labs Labs: 06/18/17 06:00 06/18/17 06:00 - Constitutional Appears: Non-toxic, No Acute Distress, Chronically Ill - Head Exam Head Exam: ATRAUMATIC, NORMOCEPHALIC - Eye Exam Eye Exam: EOMI, PERRL Pupil Exam: NORMAL ACCOMODATION, PERRL - ENT Exam ENT Exam: Mucous Membranes Moist, Normal External Ear Exam, TM's Normal Bilaterally - Neck Exam Neck Exam: Full ROM, Normal Inspection - Respiratory Exam Respiratory Exam: Clear to Ausculation Bilateral, NORMAL BREATHING PATTERN. absent: Rales, Rhonchi, Wheezes - Cardiovascular Exam Cardiovascular Exam: REGULAR RHYTHM, RRR, +S1, +S2 - GI/Abdominal Exam GI & Abdominal Exam: Soft, Tenderness, Normal Bowel Sounds. absent: Distended Additional comments: right sided suprapubic tenderness - Exam Exam: Scrotal Swelling Additional comments: but no erythema, induration, extra warmth or tenderness. - Extremities Exam Extremities Exam: Full ROM, Normal Inspection Additional comments: ROM limited secondary to pain. - Neurological Exam Neurological Exam: Alert, Awake, CN II-XII Intact, Oriented x3 - Psychiatric Exam Psychiatric exam: Normal Affect, Normal Mood - Skin Skin Exam: Intact, Normal Color Assessment and Plan - Assessment and Plan (Free Text) Assessment: 26 yo male with increasing abdominal pain and fevers up to 102.0 F over the past 4 days. The patient with vague findings in the imaging studies of the abdomen. Hepatitis screen was negative for A, B, and C. The patient with mild elevation of the LFTs. [place] cultures sent. No leukocytosis. No specific findings in the urinalysis. Started on Cefepime and Flagyl for now. Free fluid in the abdomen as seen by Ultrasound. No reported fevers in the past 24 hours but temperature did reach 100.0 F. Supportive care. He is sexually active. Recently in [facility] 2 months ago. Most of the pain is in the suprapubic area now. Remains on Cefepime and Flagyl at this time. Awaiting Chlamydia testing to return. Testicular ultrasound shows a left varicocele. No reaction to Cefepime. On Doxycycline and Cefepime for antibiotic regimen. Add Vancomycin to regimen if no improvement tomorrow. Await full evaluation by Dr. Calderon. Noted negative Chlamydia and Gonorrhoeae studies. Nonspecific Bone scan but findings very weakly correlating to osteomyelitis in the left pubic symphysis. More likely a stress fracture. The patient redeveloped fevers up to 102.8 F in the past 24 hours. IR evaluating the patient. I would check Quantiferon and Malaria/Babesia/Erlichia smear - negative. I will look into testing for Zika virus as well as [facility] is a hotspot for Zika at this time (testing needs approval by [facility] health department - awaiting call back). NM scan did not show any abnormalities. There has been no leukocytosis during this hospitalization. Thank you for allowing me to participate in the care of the patient, we will follow with you.
--- NOTE | 2017-06-19 05:31 | CON ---
DATE: 06/18/2017 This is Robert Mckoy's second opinion evaluation as per Dr. Restrepo's consult. CHIEF COMPLAINT: Fevers of unknown origin. HISTORY OF PRESENT ILLNESS: The patient is a 26-year-old male recently returned from a trip to [facility] accompanied by his girlfriend, where he reports he had exposure to going to an elephant park, as his only experience he thought was out of the norm. With this, the patient has been now been admitted for severe right mid lower quadrant pelvic pain, which now radiates to the left side for approximately 1 weeks' time, worsening after approximately 2 weeks prior to discomfort in the suprapubic area. He is an active person. 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 The patient was seen by Dr. Bird Johnson yesterday with the family requesting an evaluation with Dr. Restrepo. The chart was reviewed. The patient was examined with the patient seen now lying in bed, reporting that he has significant discomfort to any type of ambulation to the right mid suprapubic area. He was evaluated also by Dr. Avelar, Urology with tests that were reviewed including a pelvic MRI, which showed increased uptake in the left pubis. He is also being followed by Dr. Chava Alegre, Infectious Disease along with Dr. Crain, his primary medical doctor. He otherwise is known to have had findings significant for acetic fluid with a normal white blood cell count. ALLERGIES: NO KNOWN ALLERGIES. MEDICATIONS: Medicines were denied on admission. 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 Drinks 8-10 beers on the weekend. Denies tobacco use or other illicit drugs. FAMILY HISTORY: Significant for lung cancer in his father. REVIEW OF SYSTEMS: A 12-point review of systems was done with negative findings except for the history of present illness positive findings. PHYSICAL EXAMINATION: VITAL SIGNS: Temperature at present 99.2, earlier today it was 100.3 with 100.28 noted yesterday after his antibiotics were discontinued as per Dr. Chava Alegre. He had episodes of defervescence after being admitted on 06/10/2017 with temperatures as high as 103.1 and then defervescing for the next 2-3 days, temperatures in the 99 range and then spiking again on 06/16/2017 of 100.2. His heart rate is 78, pulse 80, respirations 20, and blood pressure 111/65. HEENT: Unremarkable. NECK: Supple. HEART: Regular rate. LUNGS: Clear. ABDOMEN: Soft with minimal tenderness to gentle palpation to the mid right upper quadrant and significant tenderness to gentle palpation to the right greater than left suprapubic areas. EXTREMITIES: No edema. SKIN: Warm and dry. NEUROLOGIC: Awake, alert, and oriented x3. LABORATORY DATA: The patient had significant testing done, when he was referred to the findings of significance on a CAT scan of the abdomen and pelvis done on 06/11/2017, seven days prior. The patient had well-distended gallbladder. No calcified stones. Mild pericholecystic fluid of uncertain etiology. He also had re-demonstration of small amount of free fluid in the pelvis of uncertain etiologies and abnormal for a male patient, constipation, no evidence of bowel obstruction, trace pleural effusion, and subsegmental atelectasis at the lung basis. An abdominal MRI was then done on 06/13/2017, which was read as mild generalized ascites, bibasilar consolidation, likely subsegmental atelectasis, small pleural effusion, incidental 1.3 cm noncystic lesion in the dome of the right hepatic lobe. No additional abnormality. His MRI of the pelvis was done the same day. It was read as ascites, increased signal in the left pubic symphysis of uncertain significance, mild right hydrocele, nonspecific. He had an ultrasound of the bladder done on 06/13/2017, it was read as normal appearance of urinary bladder, small postvoid residual, small amount of free fluid in the pelvis of uncertain etiology, and abnormal in a male patient. He had a bone scan done 3 days prior. The bone scan was read as no evidence of bony metastatic disease, vaguely increased uptake left pubic symphysis compared to the right by uncertain etiology Doppler clinical significance. An x-ray of the pelvic done on the same day. It was read as no osteitis condensans pubis, suggested no acute fracture, bilateral femoral lesser trochanter old osseous avulsions. Correlation with past history recommended. He had an echocardiogram done earlier today that has not been read, with a consultation with Dr. Romeo Norman with [facility] along with sedimentation rate and C-reactive protein. The patient had a chest x-ray done 2 days prior. It was read as no acute cardiopulmonary disease appreciated. No significant interval change. The patient also had a testicular ultrasound done on 06/11/2017. It was read as no evidence of testicular torsion or mass, left varicocele. He had abdominal ultrasound done on 06/10/2017. It was read as mild hepatomegaly, diffuse increased echogenicity in the liver, may reflect hepatic steatosis; however, barbara rule flesh infectious inflammatory etiology cannot be excluded entirely. No cholelithiasis or biliary dilatation. This was done as his initial abdomen CAT scan and pelvis done on 06/10/2017 was read as free fluid within the pelvis, which is never normal finding in a male patient nor does appendix, fatty infiltration with enlarged liver. The patient's labs were done today include a white blood cell count of 9.3, hemoglobin 11.8, hematocrit 37.5, and platelet count of 388,000, for which the patient has never mounted a white blood cell count in spite of his high temperatures. Sedimentation rate was done yesterday, 57 was the reading with a reticulocyte count of 1.81. His chem metabolic panel on admission showed elevation of his liver function tests, AST of 84 rising to 227 the next day with an ALT of 233. C-reactive protein of greater than 15 with a procalcitonin of 0.4. The liver function tests have remained elevated with today's values showing an AST of 80, ALT of 152 with a C-reactive protein of greater than 15 with a PSA of 0.4. Total bilirubin is normal at 0.5 with an otherwise normal chem panel. The patient's LDH was done, it was 537. The patient's urine specimen has been negative. Toxicology report was negative for any type of drugs of abuse. His NORA screening was negative with serology showing his RPR was nonreactive. Lyme titers were also done. They were negative. C trachomatis was negative. Coxsackie testing was negative. CMV was negative. Hepatitis A, B, C were all negative along with HIV testing and gonorrhea testing was negative with a malaria and Babesia testing pending. Influenza testing was also negative. The patient's cultures, urine cultures and blood cultures were all negative. ASSESSMENT: The assessment for this patient was that of fevers of unknown origin with abnormal liver function tests with severe pubic pain, history of travel to a foreign country, and ascites. It should be noted that the patient's present medical regimen includes Colace, doxycycline, Flomax, Motrin, Protonix, tramadol, and Zofran. It should also be noted that the patient has been seen by Dr. Rainey, who is a vascular neurology universal branch consultant, who recommends MRI of the thoracic and lung spine with and without contrast with Decadron also recommended. PLAN: The plan for this patient after conversation with Dr. Restrepo is to continue monitoring the patient clinically and with labs. We also recommend that the patient should have a paracentesis, if there is an ascitic fluid to determine diagnosis if possible as per Dr. Romeo Norman with considerations for a bone marrow biopsy, aspiration, culture and sensitivity if temperature persists to rule out fungal or granulomatous infection. We will monitor clinically with labs. Prognosis for this patient is guarded. Elroy Galeano MD
[2017-06-19] MEDS: Pantoprazole 40 mg EC Tab PO SCH (05:52)
[2017-06-19 08:01] LABS: HEMATOCRIT 37.7 % (42.0-52.0); MEAN CELL VOLUME 91.1 fl (80.0-105.0); MEAN CORPUSCULAR HEMOGLOBIN 28.7 pg (25.0-35.0); MEAN CORPUSCULAR HGB CONC 31.6 g/dl (31.0-37.0); MEAN PLATELET VOLUME 9.6 fl (7.0-11.0); RED CELL DISTRIBUTION WIDTH 13.7 % (11.5-14.5); WHITE BLOOD COUNT 7.2 10^3/ul (4.5-11.0)
--- NOTE | 2017-06-19 08:08 | CARD ---
APPROVED REPORT EXAM: Two-dimensional and M-mode echocardiogram with Doppler and color Doppler. Other Information Quality : AverageRhythm : INDICATION Infection:Rule out subacute bacterial endocarditis 2D DIMENSIONS Left Atrium (2D)3.1 (1.6-4.0cm)IVSd1.2 (0.7-1.1cm) LVDd5.0 (3.9-5.9cm)PWd1.1 (0.7-1.1cm) LVDs3.3 (2.5-4.0cm)FS (%) 33.3 % LVEF (%)61.0 (>50%) M-Mode DIMENSIONS Aortic Root3.10 (2.2-3.7cm)Aortic Cusp Exc.2.00 (1.5-2.0cm) Aortic Valve AoV Peak Dhnwhtdp207.0cm/s Mitral Valve MV E Zrhmklkn190.0cm/sMV A Vmutvtam09.7cm/sE/A ratio1.7 TDI E/Lateral E'0.0E/Medial E'0.0 Tricuspid Valve TR Peak [id number]/sRAP [id number] Peak Gr.13mmHg [id number] LEFT VENTRICLE The left ventricle is normal size. There is normal left ventricular wall thickness. The left ventricular function is normal. The left ventricular ejection fraction is within the normal range. There is normal LV segmental wall motion. RIGHT VENTRICLE The right ventricle is normal size. ATRIA The left atrium size is normal. The right atrium size is normal. The interatrial septum is intact with no evidence for an atrial septal defect. AORTIC VALVE The aortic valve is normal in structure. Can not R/O bicuspid valve. MITRAL VALVE The mitral valve is normal in structure. TRICUSPID VALVE The tricuspid valve is normal in structure. There is trace to mild tricuspid regurgitation. PULMONIC VALVE The pulmonary valve is normal in structure. GREAT VESSELS The aortic root is normal in size. PERICARDIAL EFFUSION There is no pericardial effusion. <Conclusion> The left ventricle is normal size. There is normal left ventricular wall thickness. The left ventricular function is normal. The left ventricular ejection fraction is within the normal range. The aortic valve is normal in structure in limited views. Can not R/O bicuspid valve. The mitral valve is normal in structure. The tricuspid valve is normal in structure. The pulmonary valve is normal in structure. No vegetation seen.
[2017-06-19 08:10] LABS: ALB/GLOB RATIO 1.1 (1.1-1.8); ALKALINE PHOSPHATASE 85 U/L (38-126); ALT/SGPT 130 U/L (7-56); AST/SGOT 66 U/L (17-59); BILIRUBIN,TOTAL 0.5 mg/dL (0.2-1.3); BLOOD UREA NITROGEN 15 mg/dL (7-21); CALCIUM 9.1 mg/dL (8.4-10.5); CARBON DIOXIDE 31 mmol/L (21-33); CHLORIDE 98 mmol/L (98-107); GFR AFRICAN-AMERICAN > 60; GLUCOSE,RANDOM 95 mg/dL (70-110); POTASSIUM 4.3 mmol/L (3.6-5.0); SODIUM 138 mmol/L (132-148)
[2017-06-19] MEDS ORDERED: Gadodiamide 287 MG/ML VIAL (15ML) IV ONE (12:19)
--- NOTE | 2017-06-19 15:29 | MRI ---
PROCEDURE: MRI lumbar spine dated 06/19/2017 HISTORY: Lower extremity weakness gait disorder. COMPARISON: Correlation made with concurrent MRI of the thoracic spine. Comparison also made with CT scan of the abdomen and pelvis 06/11/2017 which image the lumbar spine in 3 planes. Note that the examination is limited by a significant artifact which partially obscures the lower cervical segments most pronounced on the postcontrast sagittal sequence. TECHNIQUE: Multiecho multiplanar sequences were performed through the lumbar spine with and without the use of intravenous contrast. . Approximately 15 cc Omniscan injected for this procedure. FINDINGS: No evidence of acute compression fractures no retropulsed fragments aside from minor multilevel fish-mouth endplate deformities. Chronic appearing anterior stature loss of the T12 segment - limbus deformity unchanged. . Similar changes seen along the at anterior inferior corner of the L1 segment as well. . There is straightening of the normal lumbar lordosis however vertebral bodies otherwise exhibit normal alignment. Facets normally aligned. At the L5-S1 level, there is disc desiccation and disc space narrowing more so along the posterior disc margin. Small irregular disc bulge ridge complex associate with a tiny fissure in the posterior annulus is present. The disc does not cause any significant canal compromise nor compressive effects on the thecal sac or S1 nerve roots at this level. Facets hypertrophic. Proximal exit foramina appear narrowed left greater than right. At the L4-L5 level, there is also disc desiccation and minor posterior disc space narrowing. Small central and bilateral disc bulge associate with a tiny annular fissure in the posterior annulus is noted. The disc results in mild compressive effects on the ventral surface of the thecal sac. Central canal is adequate. Facets are mildly hypertrophic. Proximal exit foramina are mildly narrowed left greater than right At the L3-L4 and L2-L3 levels, there is adequate disc height and hydration. No disc herniation or significant disc bulge. The facets are hypertrophic. Central canal and exit foramina are adequate. At the L1-L2 level, there is disc desiccation and disc space narrowing with small broad-based bulge of the posterior annulus. Changes result in mild flattening of the ventral surface of the thecal sac however the overall central canal appears adequate. Facets are mildly hypertrophic. Exit foramina are also adequate. No evidence of abnormal enhancement of the endplates seen to suggest discitis osteomyelitis. There are no focal areas of abnormal signal or contrast enhancement seen within the visualized lower thoracic spinal cord -conus or descending nerve roots of the cauda equina so far as can be seen given limitation of the exam. Impression: No acute compression fractures. 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 No evidence of discitis osteomyelitis. No enhancing lesions within the or along the surfaces of the visualized spinal cord -conus or descending nerve roots of the cauda equina. The the.
--- NOTE | 2017-06-19 15:47 | MRI ---
PROCEDURE: MRI thoracic spine dated 06/19/2017 HISTORY: Lower extremity weakness gait disorder COMPARISON: No prior study available comparison. TECHNIQUE: Multiecho multiplanar sequences were performed through the thoracic spine with and without the use of intravenous contrast. . . FINDINGS: ALIGNMENT: There are no acute compression fractures no retropulsed fragments. Vertebral bodies exhibit normal stature aside from a few scattered degenerative endplate changes with apparent limbus deformities of the T12 and T10 segments. . . . Vertebral bodies and facets normally aligned. There are varying degrees of disc desiccation and minor disc space narrowing, most notably affecting T10-T11 and T12-L1 disc space levels. . Questionable small left parasagittal disc ridge complex at the T6-T7 level which is seen only on sagittal sequence and not seen on additional sequences. The overall central bony canal appears adequate throughout. Exit foramina patent so far as can be seen appear adequate as well. There is no evidence of abnormal enhancement within the disc spaces or endplates to suggest discitis osteomyelitis. . . None there are no definitive focal areas of abnormal signal or contrast enhancement within or along the surfaces of the visualized spinal cord. Note made of CSF flow related type artifacts within the posterior margin of the thecal sac most conspicuous on the sagittal T2 and STIR sequences. IMPRESSION: Very limited motion degraded study. There are no acute compression fractures no retropulsed fragments. Chronic appearing endplate changes with apparent limbus deformities at the T10 and T12 segments. No evidence of any significant canal nor foraminal compromise. . There is no evidence to suggest discitis osteomyelitis. No evidence of abnormal signal or contrast enhancement within or along the surfaces of the visualized spinal cord
--- NOTE | 2017-06-19 15:49 | CP.PCM.PN ---
<Isaiah Gordon - Last Filed: 06/19/17 15:46> Subjective - Date & Time of Evaluation Date of Evaluation: 06/19/17 Time of Evaluation: 10:15 - Subjective Subjective: Medicine Progress note. Dr. Crain. Pt seen and examined at bedside. Family at bedside. Patient febrile to 101.9F overnight. He denies any Abd pain. No N/V/D. Tolerating diet. Walking using walker with antalgic gait due pubic pain. No new complaints. Objective - Vital Signs/Intake and Output Vital Signs (last 24 hours): Temp Pulse Resp BP Pulse Ox 98.8 F 66 20 111/60 98 06/19/17 06:00 06/19/17 06:00 06/19/17 06:00 06/19/17 06:00 06/19/17 06:00 Intake and Output: 06/19/17 06/19/17 06:59 18:59 Intake Total 900 Output Total 1300 Balance -400 - Medications Medications: Current Medications Docusate Sodium (Colace) 100 mg PO DAILY [facility] Last Admin: 06/19/17 09:57 Dose: 100 mg Doxycycline Hyclate (Doryx) 100 mg PO Q12 [facility] PRN Reason: Protocol Last Admin: 06/19/17 09:57 Dose: 100 mg Ibuprofen (Motrin Tab) 800 mg PO Q6H PRN PRN Reason: Fever >100.4 F Last Admin: 06/18/17 23:43 Dose: 800 mg Ondansetron HCl (Zofran Inj) 4 mg IVP Q4H PRN PRN Reason: Nausea/Vomiting Pantoprazole Sodium (Protonix Ec Tab) 40 mg PO 0600 [facility] Last Admin: 06/19/17 05:52 Dose: 40 mg Tamsulosin HCl (Flomax) 0.4 mg PO DAILY [facility] Last Admin: 06/19/17 09:57 Dose: 0.4 mg Tramadol HCl (Ultram) 50 mg PO Q6 PRN PRN Reason: Pain, severe (8-10) Last Admin: 06/19/17 11:03 Dose: 50 mg - Labs Labs: 06/19/17 07:30 06/19/17 07:30 - Constitutional Appears: Non-toxic, No Acute Distress - Head Exam Head Exam: ATRAUMATIC, NORMAL INSPECTION, NORMOCEPHALIC - Eye Exam Eye Exam: EOMI, Normal appearance - ENT Exam ENT Exam: Mucous Membranes Moist - Respiratory Exam Respiratory Exam: Clear to Ausculation Bilateral, NORMAL BREATHING PATTERN. absent: Decreased Breath Sounds, Rales, Rhonchi, Wheezes, Respiratory Distress - Cardiovascular Exam Cardiovascular Exam: RRR, +S1, +S2. absent: JVD - GI/Abdominal Exam GI & Abdominal Exam: Soft. absent: Distended, Firm, Guarding, Rigid, Tenderness - Exam Additional comments: supra pubic tenderness to palpation at left pubis. No bony deformity palpable - Extremities Exam Extremities Exam: Normal Inspection. absent: Calf Tenderness, Pedal Edema - Back Exam Back Exam: NORMAL INSPECTION - Neurological Exam Neurological Exam: Alert, Awake, Oriented x3 Additional comments: Antalgic gait - Psychiatric Exam Psychiatric exam: Normal Affect, Normal Mood - Skin Skin Exam: Dry, Intact, Normal Color, Warm Assessment and Plan - Assessment and Plan (Free Text) Assessment: 26 y/o M with no PMH presents with pelvic pain and fever. CT of abdomen/pelvis revealed free fluid in pelvis. Pt currently being followed by GI, Surgery, ID, Interventional Radiology, and Ortho, Heme/onc, Neurology. Awaiting MRI Thoracic/ Lumbar. We will obtain Abd Duplex US. 1. Groin pain. Free fluid in Pelvis. r/o Osteomyelitis vs Osteitis pubis Febrile to 101.9F overnight no leukocytosis Pelvis MRI shows increased uptake in left pubis Abd MRI - Small 1.3cm ovoid lesion at right hepatic dome (nonspecific). Ortho recs appreciated bone scan shows vague increased uptake in left pubis, no clinical significance Pelvic x-ray - Doubtful osteitis pubis ESR and CRP elevated GI Following, appreciate recs Symptoms unlikely due to GI process. Transaminases likely secondary to Abx vs. secondary to pubic pain process. Surgery consulted, no acute surgical intervention ID following continue Doxycycline 100mg PO BID for now Will monitor to ensure patient remains afebrile with single abx therapy with doxy for now Discussed case with IR, Dr. Romeo Norman, regarding free fluid in pelvis and increased uptake in left pubis No plans for bone biopsy or IR fluid drainage at this time NM ceretec study performed - no signs of osteomyelitis of the left pubis Tolerating regular diet No evidence of fx on recent CT scans. Neurology consult requested, appreciate recs due antalgic gait Awaiting MRI Thoraic and Lumbar 2. Fever of unknown origin in the setting of bone pain No leukocytosis Mild anemia, normocytic Heme/Onc following may consider Abd Duplex US 3. Left Varicocele. Mild urinary retention Continue flomax Urology consulted current symptoms unlikely due to Urologic process 4. Transaminitis Possibly secondary to abx use (unlilkely) Hepatitis panel negative GI following, appreciate recs unlikely due to GI process 5. Atelectasis clinical course of fevers are unlikely due to atelectasis Encourage IS use 6. PPX Protonix SCDs Discussed case with Dr. Paras Gordon PGY1 <Cristobal Crain - Last Filed: 06/19/17 16:27> Objective - Vital Signs/Intake and Output Vital Signs (last 24 hours): Temp Pulse Resp BP Pulse Ox 98.8 F 66 20 111/60 98 06/19/17 06:00 06/19/17 06:00 06/19/17 06:00 06/19/17 06:00 06/19/17 06:00 Intake and Output: 06/19/17 06/19/17 06:59 18:59 Intake Total 900 Output Total 1300 Balance -400 - Medications Medications: Current Medications Docusate Sodium (Colace) 100 mg PO DAILY [facility] Last Admin: 06/19/17 09:57 Dose: 100 mg Doxycycline Hyclate (Doryx) 100 mg PO Q12 [facility] PRN Reason: Protocol Last Admin: 06/19/17 09:57 Dose: 100 mg Heparin Sodium (Porcine) (Heparin) 5,000 units SC Q8 [facility] PRN Reason: Protocol Ibuprofen (Motrin Tab) 800 mg PO Q6H PRN PRN Reason: Fever >100.4 F Last Admin: 06/18/17 23:43 Dose: 800 mg Ondansetron HCl (Zofran Inj) 4 mg IVP Q4H PRN PRN Reason: Nausea/Vomiting Pantoprazole Sodium (Protonix Ec Tab) 40 mg PO 0600 [facility] Last Admin: 06/19/17 05:52 Dose: 40 mg Tamsulosin HCl (Flomax) 0.4 mg PO DAILY [facility] Last Admin: 06/19/17 09:57 Dose: 0.4 mg Tramadol HCl (Ultram) 50 mg PO Q6 PRN PRN Reason: Pain, severe (8-10) Last Admin: 06/19/17 11:03 Dose: 50 mg - Labs Labs: 06/19/17 07:30 06/19/17 07:30 Attending/Attestation - Attestation I have personally seen and examined this patient.: Yes I have fully participated in the care of the patient.: Yes I have reviewed all pertinent clinical information, including history, physical exam and plan: Yes Notes (Text): 06/19/17 16:22 26 year old male with no significant past medical history who presented with complaint of fever and lower abdominal/pelvic pain. CT abd/pelvis showed free fluid in the pelvis. Testicular ultrasound showed left varicocele. He has elevated LFTs for which GI is following. Continue to monitor. Abdominal duplex is ordered. He was also evaluated by urology and physical therapy. Abdominal/pelvic MRI showed increased signal at left pubic. DDx included muscle overuse/strain vs stress fracture vs OM as per radiology. This was followed up with pelvic xray and bone scan as above. He had NM scan which is negative for OM. However he continues to have pain, difficulty with ambulation and fever. Will need to discuss with IR tomorrow regarding possible biopsy or fluid analysis. Continue with antibiotics as per ID. He is currently on doxycycline. Consideration of steroids were discussed with patient and sister, however they wish to wait for IR/ID input. Neurology evaluation was appreciated. Will review MRI spine studies which were done today. Cristobal Crain MD Hospitalist.
--- NOTE | 2017-06-19 20:15 | PN ---
DATE: 06/19/2017 This is patient's hospital visit on the medical floor. For Dr. Restrepo. SUBJECTIVE: The patient is a 26-year-old male now sitting up in a chair with his girlfriend at the bedside, status post testing of his MRIs of the thoracic and lumbosacral spine. He reports the pain persisted to the pelvic area; however, he is tolerating his diet well with the patient's temperatures minimally improved. I wanted to refer to previous notes on this patient regarding his persistent elevated temperatures with evaluation till now. OBJECTIVE/PHYSICAL EXAMINATION: VITAL SIGNS: Temperature earlier today 100.9, now it is 98.8, pulse of 66, respirations 20, blood pressure 111/60, pulse ox 98% HEENT: Unremarkable. NECK: Supple. HEART: Regular rate. LUNGS: Clear. ABDOMEN: Soft, nontender with minimal tenderness to gentle palpation in the suprapubic area. EXTREMITIES: No edema. SKIN: Warm and dry. NEUROLOGIC: Awake, alert, and oriented x3. LABORATORY DATA: The patient's labs were done; white blood cell count is 7.2, hemoglobin 11.9, hematocrit 37.7, platelet count of 369,000. With a chem metabolic panel completely within normal range except for an AST now decreased to 66, ALT of 130. His C-reactive protein yesterday was greater than 15. The patient's other testing is still pending as per Dr. Chava Alegre, infectious disease netsuite consultant. The patient also had a thoracic spine MRI and the lumbar spine MRI done earlier today, with test results are still pending. ASSESSMENT: For this patient is that of fevers of unknown origin, rule out infections, rule out hematologic/oncologic concerns with suspicious findings for osteomyelitis of the pubis. There is also a consideration for atypical organ such as a liver fluke as the patient did have a recent trip to [facility] with his girlfriend also accompanying him, she is not ill. With this there is a consideration for possible recommendation for a Doppler ultrasound of the portal hepatic veins recommended to be for consideration as per Dr. Crain for thoroughness of the workup. There is also a consideration for paracentesis with fluid diagnosis, possibly if there is enough fluid as per Dr. Romeo Norman versus a bone marrow biopsy, aspiration, culture and sensitivity if the temperature persists to rule out fungal or granulomatous infection which are less likely as this is an acute event in a young otherwise healthy person. Infectious etiology is excluded at this time. Also, elevation of the LFTs to be evaluated. We will consider discontinuing Flomax as per Dr. Crain along with his antibiotics adjustment as per Dr. Alegre with Doryx presently his only antibiotic. We will follow and monitor clinically as indicated. Elroy Galeano MD
[2017-06-20] MEDS: Pantoprazole 40 mg EC Tab PO SCH (06:23)
[2017-06-20 07:40] LABS: HEMATOCRIT 38.3 % (42.0-52.0); MEAN CELL VOLUME 90.8 fl (80.0-105.0); MEAN CORPUSCULAR HEMOGLOBIN 28.7 pg (25.0-35.0); MEAN CORPUSCULAR HGB CONC 31.6 g/dl (31.0-37.0); MEAN PLATELET VOLUME 9.6 fl (7.0-11.0); RED CELL DISTRIBUTION WIDTH 13.5 % (11.5-14.5); WHITE BLOOD COUNT 6.8 10^3/ul (4.5-11.0)
[2017-06-20 07:55] LABS: ALB/GLOB RATIO 1.1 (1.1-1.8); ALKALINE PHOSPHATASE 87 U/L (38-126); ALT/SGPT 114 U/L (7-56); AST/SGOT 52 U/L (17-59); BILIRUBIN,TOTAL 0.6 mg/dL (0.2-1.3); BLOOD UREA NITROGEN 17 mg/dL (7-21); CALCIUM 9.7 mg/dL (8.4-10.5); CARBON DIOXIDE 31 mmol/L (21-33); CHLORIDE 95 mmol/L (98-107); GFR AFRICAN-AMERICAN > 60; GLUCOSE,RANDOM 89 mg/dL (70-110); POTASSIUM 4.2 mmol/L (3.6-5.0); SODIUM 138 mmol/L (132-148); TOTAL PROTEIN 7.5 g/dL (5.8-8.3)
--- NOTE | 2017-06-20 09:19 | US ---
PROCEDURE: Portal vein duplex ultrasound. CLINICAL HISTORY: Deteriorating liver function. Evaluate for portal vein thrombosis. PHYSICIAN(S): Romeo Norman M.D. FINDINGS: The extrahepatic portal vein is patent with hepatopetal flow. No sonographic evidence for thrombus or obstruction is seen. The 3 hepatic veins are visualized centrally and patent. The hepatic artery is patent. The spleen is borderline enlarged. No ascites is present. Incidental note is made of a small well-circumscribed 1.3 cm echogenic lesion in the right lobe of the liver superiorly. This could represent a hemangioma. IMPRESSION: 1. Patent portal vein with hepatopetal flow.
--- NOTE | 2017-06-20 12:06 | CP.PCM.PN ---
Subjective - Date & Time of Evaluation Date of Evaluation: 06/20/17 Time of Evaluation: 11:59 - Subjective Subjective: Mr. Mckoy was seen and examined today at bedside. He states that he feels his walking is worse. He was not given steroids due to concern that the inflammatory lesion involving the symphysis pubis may decrease size and result in a poor biopsy. However, there is no plan for biopsy as of yet and the patient continues to have worsening function. He has been on multiple antibiotic regimens covering a broad spectrum of pathogens. His fever has gone down. Liver enzymes are improving. MRI of the thoracic and lumbar spine was basically normal. Objective - Vital Signs/Intake and Output Vital Signs (last 24 hours): Temp Pulse Resp BP Pulse Ox 99.2 F 93 H 19 99/65 L 97 06/20/17 08:00 06/20/17 08:00 06/20/17 08:00 06/20/17 08:00 06/20/17 08:00 Intake and Output: 06/20/17 06/20/17 06:59 18:59 Intake Total 420 Output Total 500 Balance -80 - Medications Medications: Current Medications Docusate Sodium (Colace) 100 mg PO DAILY [facility] Last Admin: 06/20/17 09:31 Dose: 100 mg Doxycycline Hyclate (Doryx) 100 mg PO Q12 [facility] PRN Reason: Protocol Last Admin: 06/20/17 09:31 Dose: 100 mg Heparin Sodium (Porcine) (Heparin) 5,000 units SC Q8 [facility] PRN Reason: Protocol Last Admin: 06/20/17 06:24 Dose: 5,000 units Ibuprofen (Motrin Tab) 800 mg PO Q6H PRN PRN Reason: Fever >100.4 F Last Admin: 06/18/17 23:43 Dose: 800 mg Ondansetron HCl (Zofran Inj) 4 mg IVP Q4H PRN PRN Reason: Nausea/Vomiting Pantoprazole Sodium (Protonix Ec Tab) 40 mg PO 0600 [facility] Last Admin: 06/20/17 06:23 Dose: 40 mg Tamsulosin HCl (Flomax) 0.4 mg PO DAILY [facility] Last Admin: 06/20/17 09:31 Dose: 0.4 mg Tramadol HCl (Ultram) 50 mg PO Q6 PRN PRN Reason: Pain, severe (8-10) Last Admin: 06/20/17 08:45 Dose: 50 mg - Labs Labs: 06/20/17 07:33 06/20/17 07:33 - Neurological Exam Neurological Exam: Abnormal Gait, Alert, Awake, CN II-XII Intact, Oriented x3 Neuro motor strength exam: Left Upper Extremity: 5, Right Upper Extremity: 5, Left Lower Extremity: 3, Right Lower Extremity: 3 Assessment and Plan (1) Gait disturbance Assessment & Plan: Seems to be limited movement due to painful inflammation. Since there is no official plan for biopsy, and the patient has been given multiple antibiotics that may skew the biopsy results, I recommend attempting to improve symptoms by decreasing inflammation with Decadron as previously communicated. Status: Acute
[2017-06-20] MEDS: oxyCODONE 10 mg Immediate Release Tab PO PRN ×2 (14:08→23:19)
--- NOTE | 2017-06-20 14:20 | CP.PCM.PN ---
<JosueBoston - Last Filed: 06/20/17 14:25> Subjective - Date & Time of Evaluation Date of Evaluation: 06/20/17 Time of Evaluation: 08:17 - Subjective Subjective: Patient was seen and examined at bedside. The patient reports very little pain while at rest, however reports pain upon ambulating and rates it a 6/10 in severity. Per nursing no overnight fever and no acute events occurred. The patient denies any chest pain, shortness of breath, nausea, vomiting, changes in vision, lightheadedness, dizziness, or any other complaints. Objective - Vital Signs/Intake and Output Vital Signs (last 24 hours): Temp Pulse Resp BP Pulse Ox 99.2 F 93 H 19 99/65 L 97 06/20/17 08:00 06/20/17 08:00 06/20/17 08:00 06/20/17 08:00 06/20/17 08:00 Intake and Output: 06/20/17 06/20/17 06:59 18:59 Intake Total 420 Output Total 500 Balance -80 - Medications Medications: Current Medications Docusate Sodium (Colace) 100 mg PO DAILY [facility] Last Admin: 06/20/17 09:31 Dose: 100 mg Doxycycline Hyclate (Doryx) 100 mg PO Q12 [facility] PRN Reason: Protocol Last Admin: 06/20/17 09:31 Dose: 100 mg Heparin Sodium (Porcine) (Heparin) 5,000 units SC Q8 [facility] PRN Reason: Protocol Last Admin: 06/20/17 14:07 Dose: Not Given Ibuprofen (Motrin Tab) 800 mg PO Q6H PRN PRN Reason: Fever >100.4 F Last Admin: 06/18/17 23:43 Dose: 800 mg Ondansetron HCl (Zofran Inj) 4 mg IVP Q4H PRN PRN Reason: Nausea/Vomiting Oxycodone HCl (Oxycodone Immediate Release Tab) 10 mg PO Q6H PRN PRN Reason: Pain, severe (8-10) Last Admin: 06/20/17 14:08 Dose: 10 mg Pantoprazole Sodium (Protonix Ec Tab) 40 mg PO 0600 [facility] Last Admin: 06/20/17 06:23 Dose: 40 mg Tamsulosin HCl (Flomax) 0.4 mg PO DAILY [facility] Last Admin: 06/20/17 09:31 Dose: 0.4 mg - Labs Labs: 06/20/17 07:33 06/20/17 07:33 - Head Exam Head Exam: ATRAUMATIC, NORMAL INSPECTION, NORMOCEPHALIC - Eye Exam Eye Exam: EOMI, Normal appearance, PERRL. absent: Nystagmus, Periorbital tenderness Pupil Exam: NORMAL ACCOMODATION, PERRL. absent: Irregular, Unequal - ENT Exam ENT Exam: Mucous Membranes Moist, Normal Exam, Normal Oropharynx. absent: TM's Normal Bilaterally - Neck Exam Neck Exam: Full ROM, Normal Inspection. absent: Lymphadenopathy, Thyromegaly - Respiratory Exam Respiratory Exam: Clear to Ausculation Bilateral, NORMAL BREATHING PATTERN. absent: Accessory Muscle Use, Chest Wall Tenderness, Respiratory Distress - Cardiovascular Exam Cardiovascular Exam: REGULAR RHYTHM, RRR, +S1, +S2. absent: Gallop, Rubs - GI/Abdominal Exam GI & Abdominal Exam: Soft, Normal Bowel Sounds. absent: Tenderness, Hyperactive Bowel Sounds Additional comments: suprapubic tenderness to palpation. - Extremities Exam Extremities Exam: Full ROM, Normal Inspection. absent: Joint Swelling, Pedal Edema, Tenderness - Back Exam Back Exam: NORMAL INSPECTION, paraspinal tenderness. absent: CVA tenderness (L) , CVA tenderness (R) - Neurological Exam Neurological Exam: Alert, Awake, CN II-XII Intact, Normal Gait, Oriented x3 - Psychiatric Exam Psychiatric exam: Normal Affect, Normal Mood - Skin Skin Exam: Dry, Intact Assessment and Plan - Assessment and Plan (Free Text) Assessment: 26 y/o M with no PMH presents with pelvic pain and fever. CT of abdomen/pelvis revealed free fluid in pelvis. Pt currently being followed by GI, Surgery, ID, Interventional Radiology, and Ortho, Heme/onc, Neurology. Awaiting MRI Thoracic/ Lumbar. We will obtain Abd Duplex US. Plan: 1. Groin pain. Free fluid in Pelvis. r/o Osteomyelitis vs Osteitis pubis -Afebrile. No leukocytosis. -Pelvis MRI shows increased uptake in left pubis -Abd MRI - Small 1.3cm ovoid lesion at right hepatic dome (nonspecific). -Ortho recs appreciated -bone scan shows vague increased uptake in left pubis, no clinical significance -Pelvic x-ray - Doubtful osteitis pubis -ESR and CRP elevated -GI Following, appreciate recs -Symptoms unlikely due to GI process. Transaminases likely secondary to Abx vs. secondary to pubic pain process. -Surgery consulted, no acute surgical intervention -ID following. Will f/u with rec's tomorrow. -continue Doxycycline 100mg PO BID for now -Will monitor to ensure patient remains afebrile with single abx therapy with doxy for now -Discussed case with IR, Dr. Romeo Norman, regarding free fluid in pelvis and increased uptake in left pubis -No plans for bone biopsy or IR fluid drainage at this time. Patient expected to been seen by Dr. Norman today. Will f/u with rec's tomorrow. -NM ceretec study performed - no signs of osteomyelitis of the left pubis -Tolerating regular diet -No evidence of fracture on recent CT scans. -Neurology consult requested, appreciate recs due antalgic gait -MRI Thoraic showed no acute compression or retropulsed fragments. no evidence of discitits osteomyelitis -MRI Lumbar showed no acute compression fractures, no discitis osteomyelitis. 2. Fever of unknown origin -No leukocytosis. Patient remains afebrile. -Mild anemia, normocytic -Heme/Onc following. Will f/u rec's tomorrow. -Abd Duplex US. Will f/u with rec's tomorrow. 3. Left Varicocele. Mild urinary retention -Continue flomax -Urology consulted current symptoms unlikely due to Urologic process 4. Transaminitis -Possibly secondary to abx use (unlilkely) -Hepatitis panel negative - AST 52(down from 66) and ALT 114(down 130). -GI following, appreciate recs -unlikely due to GI process 5. Atelectasis clinical course of fevers are unlikely due to atelectasis Encourage IS use 6. PPX Protonix SCDs <Bk [facility] - Last Filed: 06/21/17 12:22> Objective - Vital Signs/Intake and Output Vital Signs (last 24 hours): Temp Pulse Resp BP Pulse Ox 97.6 F 68 20 115/62 99 06/21/17 06:00 06/21/17 06:00 06/21/17 06:00 06/21/17 06:00 06/21/17 06:00 Intake and Output: 06/21/17 06/21/17 06:59 18:59 Intake Total 1350 480 Output Total 650 800 Balance 700 -320 - Medications Medications: Current Medications Acetaminophen (Tylenol 325mg Tab) 650 mg PO Q4 PRN PRN Reason: Pain, Mild (1-3) Docusate Sodium (Colace) 100 mg PO DAILY [facility] Last Admin: 06/21/17 11:17 Dose: 100 mg Doxycycline Hyclate (Doryx) 100 mg PO Q12 [facility] PRN Reason: Protocol Last Admin: 06/21/17 11:17 Dose: 100 mg Heparin Sodium (Porcine) (Heparin) 5,000 units SC Q8 [facility] PRN Reason: Protocol Last Admin: 06/21/17 05:59 Dose: Not Given Vancomycin HCl (Vancomycin 1gm) 1 gm in 250 mls @ 167 mls/hr IVPB Q12 [facility] Last Admin: 06/21/17 11:17 Dose: 167 mls/hr Meropenem 1g/NS 100mL IVPB (Meropenem 1g/Ns 100ml Ivpb) 1 gm in 100 mls @ 100 mls/hr IVPB Q8 [facility] PRN Reason: Protocol Stop: 07/19/17 11:31 Ibuprofen (Motrin Tab) 800 mg PO Q6H PRN PRN Reason: Fever >100.4 F Last Admin: 06/18/17 23:43 Dose: 800 mg Lactobacillus Acidophilus (Bacid Acidophilus) 1 cap PO BID [facility] Ondansetron HCl (Zofran Inj) 4 mg IVP Q4H PRN PRN Reason: Nausea/Vomiting Oxycodone HCl (Oxycodone Immediate Release Tab) 10 mg PO Q6H PRN PRN Reason: Pain, severe (8-10) Last Admin: 06/20/17 23:19 Dose: 10 mg Pantoprazole Sodium (Protonix Ec Tab) 40 mg PO 0600 [facility] Last Admin: 06/21/17 05:53 Dose: 40 mg Tamsulosin HCl (Flomax) 0.4 mg PO DAILY [facility] Last Admin: 06/21/17 11:17 Dose: 0.4 mg - Labs Labs: 06/21/17 08:00 06/21/17 08:00 Attending/Attestation - Attestation I have personally seen and examined this patient.: Yes I have fully participated in the care of the patient.: Yes I have reviewed all pertinent clinical information, including history, physical exam and plan: Yes Notes (Text): 06/21/17 12:15 Patient was seen and examined with nurses medical assistants phlebotomists. Agreed with resident assessment and plan. Patient underwent I/D of pubic symphysis area , we will follow up cultures.Patient has been started on IV Vancomycin and Meropenem after discussion with ID. Patient LFT are coming down,Pain is better. Case was discussed with Dr.Richard LOUIS and . Management plan was discussed in detail with patient Education was provided. 06/21/17 12:21
[2017-06-20] MEDS ORDERED: Midazolam 2 MG/2 ML VIAL ONE (14:28)
[2017-06-20] MEDS ORDERED: Sodium Chloride 0.45% 1,000 ML IV SCH (15:45)
--- NOTE | 2017-06-20 18:53 | CT ---
PROCEDURE: CT guided symphysis pubis aspiration HISTORY: Symphysis pubis pain. ? Osteitis pubis versus osteomyelitis. PHYSICIAN(S): Romeo Norman MD. TECHNIQUE: The relative risks and indications of the procedure were explained to the patient and consent obtained. The patient was placed supine on the CT scanner and preliminary images through the pelvis obtained. Conscious sedation and monitoring were provided throughout the procedure by a nurse. There has been interval development of subtle erosive changes of the cortical margins adjacent to the symphysis.. A anterior approach was selected and the area prepped and draped in the usual sterile fashion. 1% Xylocaine was used to anesthetize the skin and soft tissues. A 18 gauge guiding needle was advanced into this is pubis and its position confirmed with CT. Aspiration obtained 1-2 cc of white turbid fluid. Specimen was sent to microbiology. The patient tolerated the procedure well. IMPRESSION: 1. CT-guided aspiration of the symphysis pubis as described above. A microbiology specimen was sent.
--- NOTE | 2017-06-20 19:03 | CP.PCM.PN ---
Subjective - Date & Time of Evaluation Date of Evaluation: 06/19/17 Time of Evaluation: 19:15 - Subjective Subjective: Infectious Disease Follow Up: June 19, 2017 26 yo male presenting with worsening lower abdominal and suprapubic pain starting 2 days ago. Initially started with earaches and fevers up to 102 F. This started 4 days ago. He was given Amoxicillin through an Urgent care without any relief. The patient has no significant medical history. Seen by surgery. Free fluid in the abdominal ultrasound. Increased echogenecity in the liver on CT scan. Patient complaining mostly of suprapubic pain around the right groin. Remains on Cefepime and Flagyl for antibiotic coverage. Repeat CT scan shows slightly increased distension of the gallbladder. No specific inflammation of the intestines. Testicular ultrasound is showing left varicocele but no mass or torsion. Afebrile. Cultures negative to date. Chlamydia and Gonorrhoeae is negative. Procalcitonin is nonspecific. MRI showed uptake in pelvic bone but unclear if there is osteomyelitis. Bladder ultrasound showed no bladder abnormalities but still showing fluid in abdominal/pelvic cavity. Bone scan is showing nonspecific vaguely increased uptake of left pubic symphysis compared to right. Finding is of uncertain etiology and doubtful clinical significant. Pelvic X-rays are showing bilateral femoral lesser trochanter old osseous avulsions. Fevers up to 102.8 F yesterday. CMV tests negative. Coxsackie negative. Lyme negative. RPR negative. Hepatitis B and C negative. HIV negative. Malaria and Babesia smear negative. Chlamydia negative and Gonorrhoea negative. Influenza negative. Nuclear Medicine scan negative. MRI studies of Thoracic and Lumbar spine show no acute issues. Noted Neurology evaluation. Objective - Vital Signs/Intake and Output Vital Signs (last 24 hours): Temp Pulse Resp BP Pulse Ox 98.8 F 66 20 111/60 98 06/19/17 06:00 06/19/17 06:00 06/19/17 06:00 06/19/17 06:00 06/19/17 06:00 - Medications Medications: Current Medications Docusate Sodium (Colace) 100 mg PO DAILY [facility] Last Admin: 06/19/17 09:57 Dose: 100 mg Doxycycline Hyclate (Doryx) 100 mg PO Q12 [facility] PRN Reason: Protocol Last Admin: 06/19/17 09:57 Dose: 100 mg Heparin Sodium (Porcine) (Heparin) 5,000 units SC Q8 [facility] PRN Reason: Protocol Ibuprofen (Motrin Tab) 800 mg PO Q6H PRN PRN Reason: Fever >100.4 F Last Admin: 06/18/17 23:43 Dose: 800 mg Ondansetron HCl (Zofran Inj) 4 mg IVP Q4H PRN PRN Reason: Nausea/Vomiting Pantoprazole Sodium (Protonix Ec Tab) 40 mg PO 0600 [facility] Last Admin: 06/19/17 05:52 Dose: 40 mg Tamsulosin HCl (Flomax) 0.4 mg PO DAILY [facility] Last Admin: 06/19/17 09:57 Dose: 0.4 mg Tramadol HCl (Ultram) 50 mg PO Q6 PRN PRN Reason: Pain, severe (8-10) Last Admin: 06/19/17 11:03 Dose: 50 mg - Labs Labs: 06/19/17 07:30 06/19/17 07:30 - Constitutional Appears: Non-toxic, No Acute Distress - Head Exam Head Exam: ATRAUMATIC, NORMOCEPHALIC - Eye Exam Eye Exam: EOMI, PERRL Pupil Exam: NORMAL ACCOMODATION, PERRL - ENT Exam ENT Exam: Mucous Membranes Moist, Normal External Ear Exam, TM's Normal Bilaterally - Neck Exam Neck Exam: Full ROM, Normal Inspection - Respiratory Exam Respiratory Exam: Clear to Ausculation Bilateral, NORMAL BREATHING PATTERN. absent: Rales, Rhonchi, Wheezes - Cardiovascular Exam Cardiovascular Exam: REGULAR RHYTHM, RRR, +S1, +S2 - GI/Abdominal Exam GI & Abdominal Exam: Soft, Normal Bowel Sounds. absent: Distended, Tenderness
[2017-06-20] MEDS: Meropenem 1g/NS 100mL IVPB 1 GM/100 ML PIGGYBACK IVPB SCH (21:23)
--- NOTE | 2017-06-20 21:49 | CP.PCM.PN ---
Subjective - Date & Time of Evaluation Date of Evaluation: 06/20/17 Time of Evaluation: 20:00 - Subjective Subjective: Infectious Disease Follow Up: June 20, 2017 26 yo male presenting with worsening lower abdominal and suprapubic pain starting 2 days ago. Initially started with earaches and fevers up to 102 F. This started 4 days ago. He was given Amoxicillin through an Urgent care without any relief. The patient has no significant medical history. Seen by surgery. Free fluid in the abdominal ultrasound. Increased echogenecity in the liver on CT scan. Patient complaining mostly of suprapubic pain around the right groin. Remains on Cefepime and Flagyl for antibiotic coverage. Repeat CT scan shows slightly increased distension of the gallbladder. No specific inflammation of the intestines. Testicular ultrasound is showing left varicocele but no mass or torsion. Afebrile. Cultures negative to date. Chlamydia and Gonorrhoeae is negative. Procalcitonin is nonspecific. MRI showed uptake in pelvic bone but unclear if there is osteomyelitis. Bladder ultrasound showed no bladder abnormalities but still showing fluid in abdominal/pelvic cavity. Bone scan is showing nonspecific vaguely increased uptake of left pubic symphysis compared to right. Finding is of uncertain etiology and doubtful clinical significant. Pelvic X-rays are showing bilateral femoral lesser trochanter old osseous avulsions. CMV tests negative. Coxsackie negative. Lyme negative. RPR negative. Hepatitis B and C negative. HIV negative. Malaria and Babesia smear negative. Chlamydia negative and Gonorrhoea negative. Influenza negative. Nuclear Medicine scan negative. MRI studies of Thoracic and Lumbar spine show no acute issues. Afebrile the past IR performed aspiration of the abdominal fluid draining about 2 cc of fluid. Objective - Vital Signs/Intake and Output Vital Signs (last 24 hours): Temp Pulse Resp BP Pulse Ox 97.9 F 89 18 97/56 L 97 06/20/17 17:00 06/20/17 17:00 06/20/17 17:00 06/20/17 17:00 06/20/17 17:00 Intake and Output: 06/20/17 06/21/17 18:59 06:59 Intake Total 125 Balance 125 - Medications Medications: Current Medications Acetaminophen (Tylenol 325mg Tab) 650 mg PO Q4 PRN PRN Reason: Pain, Mild (1-3) Docusate Sodium (Colace) 100 mg PO DAILY [facility] Last Admin: 06/20/17 09:31 Dose: 100 mg Doxycycline Hyclate (Doryx) 100 mg PO Q12 [facility] PRN Reason: Protocol Last Admin: 06/20/17 09:31 Dose: 100 mg Heparin Sodium (Porcine) (Heparin) 5,000 units SC Q8 [facility] PRN Reason: Protocol Last Admin: 06/20/17 14:07 Dose: Not Given Sodium Chloride (Sodium Chloride 0.45%) 1,000 mls @ 80 mls/hr IV .[id number] [facility] Stop: 06/20/17 22:00 Meropenem 1g/NS 100mL IVPB (Meropenem 1g/Ns 100ml Ivpb) 1 gm in 100 mls @ 100 mls/hr IVPB Q8 [facility] PRN Reason: Protocol Stop: 06/21/17 06:59 Vancomycin HCl (Vancomycin 1gm) 1 gm in 250 mls @ 167 mls/hr IVPB Q12 [facility] Ibuprofen (Motrin Tab) 800 mg PO Q6H PRN PRN Reason: Fever >100.4 F Last Admin: 06/18/17 23:43 Dose: 800 mg Ondansetron HCl (Zofran Inj) 4 mg IVP Q4H PRN PRN Reason: Nausea/Vomiting Oxycodone HCl (Oxycodone Immediate Release Tab) 10 mg PO Q6H PRN PRN Reason: Pain, severe (8-10) Last Admin: 06/20/17 14:08 Dose: 10 mg Pantoprazole Sodium (Protonix Ec Tab) 40 mg PO 0600 [facility] Last Admin: 06/20/17 06:23 Dose: 40 mg Tamsulosin HCl (Flomax) 0.4 mg PO DAILY [facility] Last Admin: 06/20/17 09:31 Dose: 0.4 mg - Labs Labs: 06/20/17 07:33 06/20/17 07:33 - Constitutional Appears: Non-toxic, No Acute Distress - Head Exam Head Exam: ATRAUMATIC, NORMOCEPHALIC - Eye Exam Eye Exam: EOMI, PERRL Pupil Exam: NORMAL ACCOMODATION - ENT Exam ENT Exam: Mucous Membranes Moist, Normal External Ear Exam, TM's Normal Bilaterally - Neck Exam Neck Exam: Full ROM, Normal Inspection - Respiratory Exam Respiratory Exam: Clear to Ausculation Bilateral, NORMAL BREATHING PATTERN. absent: Rales, Rhonchi, Wheezes - Cardiovascular Exam Cardiovascular Exam: REGULAR RHYTHM, RRR, +S1, +S2 - GI/Abdominal Exam GI & Abdominal Exam: Soft, Normal Bowel Sounds. absent: Distended, Tenderness - Extremities Exam Extremities Exam: Full ROM, Normal Inspection - Neurological Exam Neurological Exam: Alert, Awake, CN II-XII Intact, Oriented x3 - Psychiatric Exam Psychiatric exam: Normal Affect, Normal Mood - Skin Skin Exam: Intact, Normal Color Assessment and Plan - Assessment and Plan (Free Text) Assessment: 26 yo male with increasing abdominal pain and fevers up to 102.0 F over the past 4 days. The patient with vague findings in the imaging studies of the abdomen. Hepatitis screen was negative for A, B, and C. The patient with mild elevation of the LFTs. [place] cultures sent. No leukocytosis. No specific findings in the urinalysis. Started on Cefepime and Flagyl for now. Free fluid in the abdomen as seen by Ultrasound. No reported fevers in the past 24 hours but temperature did reach 100.0 F. Supportive care. He is sexually active. Recently in [facility] 2 months ago. Most of the pain is in the suprapubic area now. Remains on Cefepime and Flagyl at this time. Awaiting Chlamydia testing to return. Testicular ultrasound shows a left varicocele. No reaction to Cefepime. On Doxycycline and Cefepime for antibiotic regimen. Add Vancomycin to regimen if no improvement tomorrow. Await full evaluation by Dr. Calderon. Noted negative Chlamydia and Gonorrhoeae studies. Nonspecific Bone scan but findings very weakly correlating to osteomyelitis in the left pubic symphysis. IR was able to obtain a sample of the fluid. I would check Quantiferon and Malaria/Babesia/Erlichia smear - negative. NM scan did not show any abnormalities. There has been no leukocytosis during this hospitalization. Awaiting results of the IR fluid sample. The patient and family had discussed the case with Dr. Burr... his suggestion was for IV antibiotics of Vancomycin and Meropenem for 6 weeks to cover Osteitis Pubis with osteomyelitis. The patient was not thrilled to require so many doses of antibiotics over the course of the day and wanted to consider this versus the option of continuing doxycycline orally for 6 weeks. Explained potential benefits and problems with the treatment options. Patient wanted to consider the options overnight. The patient is now amendable for use of Decadron which placed the order for the first dose this evening. Neurology did suggest 3-4 doses in total. The patient lack of resources will make many treatment options difficult as an outpatient. 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 Thank you for allowing me to participate in the care of the patient, we will follow with you.
[2017-06-20] MEDS ORDERED: Vancomycin 1 g Inj IVPB SCH (22:00)
[2017-06-20] MEDS: Vancomycin 1gm in NS 250ml 1 GM/250 ML BAG IVPB SCH (22:13)
[2017-06-21] MEDS: Pantoprazole 40 mg EC Tab PO SCH (05:53)
[2017-06-21] MEDS: Meropenem 1g/NS 100mL IVPB 1 GM/100 ML PIGGYBACK IVPB SCH ×4 (05:54→21:17)
[2017-06-21 08:14] LABS: BASO # 0.02 K/mm3 (0.0-2.0); BASO % 0.4 % (0.0-3.0); EOS % 0.2 % (1.5-5.0); GRAN # 4.05 (1.4-6.5); GRAN % 78.3 % (50.0-68.0); HEMATOCRIT 38.3 % (42.0-52.0); LYMPH % 18.6 % (22.0-35.0); MEAN CELL VOLUME 89.9 fl (80.0-105.0); MEAN CORPUSCULAR HEMOGLOBIN 29.6 pg (25.0-35.0); MEAN CORPUSCULAR HGB CONC 32.9 g/dl (31.0-37.0); MEAN PLATELET VOLUME 9.5 fl (7.0-11.0); MONO # 0.1 (0.1-0.6); MONO % 2.5 % (1.0-6.0); RED CELL DISTRIBUTION WIDTH 13.3 % (11.5-14.5); WHITE BLOOD COUNT 5.2 10^3/ul (4.5-11.0)
[2017-06-21 08:35] LABS: ALB/GLOB RATIO 1.1 (1.1-1.8); ALKALINE PHOSPHATASE 93 U/L (38-126); ALT/SGPT 98 U/L (7-56); AST/SGOT 45 U/L (17-59); BILIRUBIN,TOTAL 0.5 mg/dL (0.2-1.3); BLOOD UREA NITROGEN 19 mg/dL (7-21); CALCIUM 9.4 mg/dL (8.4-10.5); CARBON DIOXIDE 31 mmol/L (21-33); CHLORIDE 100 mmol/L (98-107); GFR AFRICAN-AMERICAN > 60; GLUCOSE,RANDOM 130 mg/dL (70-110); POTASSIUM 4.9 mmol/L (3.6-5.0); SODIUM 142 mmol/L (132-148); TOTAL PROTEIN 7.9 g/dL (5.8-8.3)
[2017-06-21] MEDS: Vancomycin 1gm in NS 250ml 1 GM/250 ML BAG IVPB SCH ×2 (11:17→22:02)
--- NOTE | 2017-06-21 11:41 | CP.PCM.PN ---
<Navdeep Salas - Last Filed: 06/21/17 15:57> Subjective - Date & Time of Evaluation Date of Evaluation: 06/21/17 Time of Evaluation: 07:38 - Subjective Subjective: Patient was seen and examined at bedside. The patient reports very little change in pain since yesterday. The patient denies any chest pain, shortness of breath, nausea, vomiting, or any other complaints. Objective - Vital Signs/Intake and Output Vital Signs (last 24 hours): Temp Pulse Resp BP Pulse Ox 97.6 F 68 20 115/62 99 06/21/17 06:00 06/21/17 06:00 06/21/17 06:00 06/21/17 06:00 06/21/17 06:00 Intake and Output: 06/21/17 06/21/17 06:59 18:59 Intake Total 1350 480 Output Total 650 800 Balance 700 -320 - Medications Medications: Current Medications Acetaminophen (Tylenol 325mg Tab) 650 mg PO Q4 PRN PRN Reason: Pain, Mild (1-3) Docusate Sodium (Colace) 100 mg PO DAILY [facility] Last Admin: 06/21/17 11:17 Dose: 100 mg Doxycycline Hyclate (Doryx) 100 mg PO Q12 [facility] PRN Reason: Protocol Last Admin: 06/21/17 11:17 Dose: 100 mg Heparin Sodium (Porcine) (Heparin) 5,000 units SC Q8 [facility] PRN Reason: Protocol Last Admin: 06/21/17 05:59 Dose: Not Given Vancomycin HCl (Vancomycin 1gm) 1 gm in 250 mls @ 167 mls/hr IVPB Q12 [facility] Last Admin: 06/21/17 11:17 Dose: 167 mls/hr Meropenem 1g/NS 100mL IVPB (Meropenem 1g/Ns 100ml Ivpb) 1 gm in 100 mls @ 100 mls/hr IVPB Q8 [facility] PRN Reason: Protocol Stop: 07/19/17 11:31 Ibuprofen (Motrin Tab) 800 mg PO Q6H PRN PRN Reason: Fever >100.4 F Last Admin: 06/18/17 23:43 Dose: 800 mg Lactobacillus Acidophilus (Bacid Acidophilus) 1 cap PO BID [facility] Ondansetron HCl (Zofran Inj) 4 mg IVP Q4H PRN PRN Reason: Nausea/Vomiting Oxycodone HCl (Oxycodone Immediate Release Tab) 10 mg PO Q6H PRN PRN Reason: Pain, severe (8-10) Last Admin: 06/20/17 23:19 Dose: 10 mg Pantoprazole Sodium (Protonix Ec Tab) 40 mg PO 0600 [facility] Last Admin: 06/21/17 05:53 Dose: 40 mg Tamsulosin HCl (Flomax) 0.4 mg PO DAILY [facility] Last Admin: 06/21/17 11:17 Dose: 0.4 mg - Labs Labs: 06/21/17 08:00 06/21/17 08:00 - Head Exam Head Exam: ATRAUMATIC, NORMAL INSPECTION, NORMOCEPHALIC - Eye Exam Eye Exam: EOMI, Normal appearance, PERRL. absent: Periorbital tenderness Pupil Exam: NORMAL ACCOMODATION, PERRL. absent: Irregular, Unequal - ENT Exam ENT Exam: Mucous Membranes Moist, Normal Exam - Neck Exam Neck Exam: Full ROM, Normal Inspection - Respiratory Exam Respiratory Exam: Clear to Ausculation Bilateral, NORMAL BREATHING PATTERN - Cardiovascular Exam Cardiovascular Exam: REGULAR RHYTHM, +S1, +S2 - GI/Abdominal Exam GI & Abdominal Exam: Soft, Normal Bowel Sounds. absent: Tenderness - Extremities Exam Extremities Exam: Full ROM. absent: Pedal Edema, Tenderness - Back Exam Back Exam: NORMAL INSPECTION. absent: CVA tenderness (L), CVA tenderness (R), paraspinal tenderness - Neurological Exam Neurological Exam: Alert, Awake, CN II-XII Intact, Oriented x3. absent: Normal Gait - Psychiatric Exam Psychiatric exam: Normal Affect, Normal Mood - Skin Skin Exam: Dry, Intact Assessment and Plan - Assessment and Plan (Free Text) Assessment: 26 y/o M with no PMH presents with pelvic pain and fever. CT of abdomen/pelvis revealed free fluid in pelvis. Pt currently being followed by GI, Surgery, ID, Interventional Radiology, and Ortho, Heme/onc, Neurology. Awaiting MRI Thoracic/ Lumbar. We will obtain Abd Duplex US. Plan: 1. Groin pain. Free fluid in Pelvis. r/o Osteomyelitis vs Osteitis pubis -Afebrile. No leukocytosis. -Pelvis MRI shows increased uptake in left pubis -Abd MRI - Small 1.3cm ovoid lesion at right hepatic dome (nonspecific). -Ortho recs appreciated -bone scan shows vague increased uptake in left pubis, no clinical significance -Pelvic x-ray - Doubtful osteitis pubis -ESR and CRP elevated -GI Following, appreciate recs -Symptoms unlikely due to GI process. Transaminases likely secondary to Abx vs. secondary to pubic pain process. -Surgery consulted, no acute surgical intervention -ID following. Will f/u with rec's tomorrow. -continue Merrem and Vancomycin. -Will monitor to ensure patient remains afebrile with single abx therapy with doxy for now -Discussed case with IR, Dr. Romeo Norman, regarding free fluid in pelvis and increased uptake in left pubis -No plans for bone biopsy or IR fluid drainage at this time. Patient expected to been seen by Dr. Norman today. Will f/u with rec's tomorrow. -NM ceretec study performed - no signs of osteomyelitis of the left pubis -Tolerating regular diet -No evidence of fracture on recent CT scans. -Neurology consult requested, appreciate recs due antalgic gait -MRI Thoraic showed no acute compression or retropulsed fragments. no evidence of discitits osteomyelitis -MRI Lumbar showed no acute compression fractures, no discitis osteomyelitis. -IR tapped fluid and preliminary results show Gram negative rods. Will f/u with final fluid blood culture tomorrow. -Per ID patient is expected to have PICC line placed and receive IV antibiotics 4-6 weeks. 2. Fever of unknown origin -No leukocytosis. Patient remains afebrile. -Mild anemia, normocytic -Heme/Onc following. Will f/u rec's tomorrow. -Abd Duplex US shows patent portal vein with hepatopetal flow. 3. Left Varicocele. Mild urinary retention -Continue flomax -Urology consulted current symptoms unlikely due to Urologic process 4. Transaminitis -Possibly secondary to abx use (unlilkely) -Hepatitis panel negative - AST 45(down from 52) and ALT 98(down 114). -GI following, appreciate recs -unlikely due to GI process 5. Atelectasis clinical course of fevers are unlikely due to atelectasis Encourage IS use 6. PPX Protonix SCDs <Delmis Bourgeois - Last Filed: 06/24/17 12:35> Objective - Vital Signs/Intake and Output Vital Signs (last 24 hours): Temp Pulse Resp BP Pulse Ox 98.7 F 89 20 106/58 L 99 06/23/17 18:00 06/23/17 18:00 06/23/17 18:00 06/23/17 18:00 06/23/17 18:00 - Labs Labs: 06/23/17 06:50 06/23/17 06:50 Attending/Attestation - Attestation I have personally seen and examined this patient.: Yes I have fully participated in the care of the patient.: Yes I have reviewed all pertinent clinical information, including history, physical exam and plan: Yes Notes (Text): 06/24/17 12:33 Patient was seen and examined with medical education manager. Agreed with resident assessment and plan. Patient underwent I/D of pubic symphysis area yesterday, wound cultures are growing gram negative eusebia, , we will follow up cultures.Patient has been started on IV Vancomycin and Meropenem at this time. Patient LFT are coming down,Pain is better. Case was discussed with Dr.Richard LOUIS and . Management plan was discussed in detail with patient Education was provided.
--- NOTE | 2017-06-21 14:21 | CP.PCM.PN ---
Subjective - Date & Time of Evaluation Date of Evaluation: 06/21/17 Time of Evaluation: 14:17 - Subjective Subjective: Heme/Onc progress note for Dr. Restrepo's service Patient seen and examined at bedside. No acute overnight events or new complaints reported. Patient underwent IR symphysis pubis aspiration with 1-2cc of fluid drained. Preliminary micro reveals gram negative rods, awaiting final culture/sensitivity. Currently on meropenem per ID recommendations with plan for PICC line insertion. Otherwise, Mr. Mckoy is relieved to have a cause to his fevers. He reported waking up in a sweat but has no documented fevers in the past 24hours. Reports good appetite and no bowel/bladder issues. Denies chest pain, palpitations, SOB. Objective - Vital Signs/Intake and Output Vital Signs (last 24 hours): Temp Pulse Resp BP Pulse Ox 97.6 F 68 20 115/62 99 06/21/17 06:00 06/21/17 06:00 06/21/17 06:00 06/21/17 06:00 06/21/17 06:00 Intake and Output: 06/21/17 06/21/17 06:59 18:59 Intake Total 1350 480 Output Total 650 800 Balance 700 -320 - Medications Medications: Current Medications Acetaminophen (Tylenol 325mg Tab) 650 mg PO Q4 PRN PRN Reason: Pain, Mild (1-3) Docusate Sodium (Colace) 100 mg PO DAILY [facility] Last Admin: 06/21/17 11:17 Dose: 100 mg Doxycycline Hyclate (Doryx) 100 mg PO Q12 [facility] PRN Reason: Protocol Last Admin: 06/21/17 11:17 Dose: 100 mg Heparin Sodium (Porcine) (Heparin) 5,000 units SC Q8 [facility] PRN Reason: Protocol Last Admin: 06/21/17 05:59 Dose: Not Given Vancomycin HCl (Vancomycin 1gm) 1 gm in 250 mls @ 167 mls/hr IVPB Q12 [facility] Last Admin: 06/21/17 11:17 Dose: 167 mls/hr Meropenem 1g/NS 100mL IVPB (Meropenem 1g/Ns 100ml Ivpb) 1 gm in 100 mls @ 100 mls/hr IVPB Q8 [facility] PRN Reason: Protocol Stop: 07/19/17 11:31 Ibuprofen (Motrin Tab) 800 mg PO Q6H PRN PRN Reason: Fever >100.4 F Last Admin: 06/18/17 23:43 Dose: 800 mg Lactobacillus Acidophilus (Bacid Acidophilus) 1 cap PO BID [facility] Ondansetron HCl (Zofran Inj) 4 mg IVP Q4H PRN PRN Reason: Nausea/Vomiting Oxycodone HCl (Oxycodone Immediate Release Tab) 10 mg PO Q6H PRN PRN Reason: Pain, severe (8-10) Last Admin: 06/20/17 23:19 Dose: 10 mg Pantoprazole Sodium (Protonix Ec Tab) 40 mg PO 0600 [facility] Last Admin: 06/21/17 05:53 Dose: 40 mg Tamsulosin HCl (Flomax) 0.4 mg PO DAILY [facility] Last Admin: 06/21/17 11:17 Dose: 0.4 mg - Labs Labs: 06/21/17 08:00 06/21/17 08:00 - Constitutional Appears: Non-toxic, No Acute Distress - Head Exam Head Exam: ATRAUMATIC, NORMAL INSPECTION, NORMOCEPHALIC - Eye Exam Eye Exam: EOMI, Normal appearance - ENT Exam ENT Exam: Mucous Membranes Moist - Neck Exam Neck Exam: Normal Inspection - Respiratory Exam Respiratory Exam: Clear to Ausculation Bilateral. absent: Rales, Rhonchi, Wheezes - Cardiovascular Exam Cardiovascular Exam: RRR, +S1, +S2. absent: Gallop, Rubs, Murmur - GI/Abdominal Exam GI & Abdominal Exam: Soft. absent: Distended, Firm, Guarding, Rigid, Tenderness , Rebound - Neurological Exam Neurological Exam: Alert, Awake, Oriented x3 - Psychiatric Exam Psychiatric exam: Normal Affect, Normal Mood - Skin Skin Exam: Dry, Intact, Normal Color, Warm Assessment and Plan - Assessment and Plan (Free Text) Plan: 26yo male with no significant past medical history presents c/o pelvic pain and unrelenting fevers. Heme/Onc consulted for bone pain/FUO. 1. Fever of unknown origin -Likely secondary to osteomyelitis of the pubic symphsis given growth of gram negative rods on IR-guided pubic symphsis drainage -Recommend follow up with ID recommendations regarding antibiotic selection/ duration -No present need for further hematologic workup/bone marrow biopsy at this time -Recommend follow up culture/sensitivity of IR drained fluid -Thoracic and lumbar MRI reviewed; see full report -Extensive imaging/workup reviewed -Further recommendations as per Dr. Restrepo Patient seen and case discussed with attending, Dr. Restrepo
[2017-06-21] MEDS: oxyCODONE 10 mg Immediate Release Tab PO PRN (14:57)
[2017-06-21 18:10] LABS: TOXOPLASMA IGG AB <7.20 IU/mL
[2017-06-21] MEDS: Lactobacillus Acidophilus 500 MU Cap PO SCH (18:38)
[2017-06-21 19:56] LABS: TOXOPLASMA IGM AB <8.00 AU/mL
--- NOTE | 2017-06-21 19:56 | CP.PCM.PN ---
Subjective - Date & Time of Evaluation Date of Evaluation: 06/21/17 Time of Evaluation: 17:45 - Subjective Subjective: Infectious Disease Follow Up: June 21, 2017 26 yo male presenting with worsening lower abdominal and suprapubic pain starting 2 days ago. Initially started with earaches and fevers up to 102 F. This started 4 days ago. He was given Amoxicillin through an Urgent care without any relief. The patient has no significant medical history. Seen by surgery. Free fluid in the abdominal ultrasound. Increased echogenecity in the liver on CT scan. Patient complaining mostly of suprapubic pain around the right groin. Remains on Cefepime and Flagyl for antibiotic coverage. Repeat CT scan shows slightly increased distension of the gallbladder. No specific inflammation of the intestines. Testicular ultrasound is showing left varicocele but no mass or torsion. Afebrile. Cultures negative to date. Chlamydia and Gonorrhoeae is negative. Procalcitonin is nonspecific. MRI showed uptake in pelvic bone but unclear if there is osteomyelitis. Bladder ultrasound showed no bladder abnormalities but still showing fluid in abdominal/pelvic cavity. Bone scan is showing nonspecific vaguely increased uptake of left pubic symphysis compared to right. Finding is of uncertain etiology and doubtful clinical significant. Pelvic X-rays are showing bilateral femoral lesser trochanter old osseous avulsions. CMV tests negative. Coxsackie negative. Lyme negative. RPR negative. Hepatitis B and C negative. HIV negative. Malaria and Babesia smear negative. Chlamydia negative and Gonorrhoea negative. Influenza negative. Nuclear Medicine scan negative. MRI studies of Thoracic and Lumbar spine show no acute issues. Afebrile the past IR performed aspiration of the abdominal fluid draining about 2 cc of fluid as the CT guided imaging showed slight increase in haziness to the borders of the pubic symphysis. A small collection was suspected that Dr. Norman was able to obtain samples from. The culture from this sample is showing gram negative rods. On IV Meropenem and IV Vancomycin currently. On PO Doxycycline. Objective - Vital Signs/Intake and Output Vital Signs (last 24 hours): Temp Pulse Resp BP Pulse Ox 97.6 F 68 20 115/62 99 06/21/17 06:00 06/21/17 06:00 06/21/17 06:00 06/21/17 06:00 06/21/17 06:00 Intake and Output: 06/21/17 06/22/17 18:59 06:59 Intake Total 1320 Output Total 1350 Balance -30 - Medications Medications: Current Medications Acetaminophen (Tylenol 325mg Tab) 650 mg PO Q4 PRN PRN Reason: Pain, Mild (1-3) Docusate Sodium (Colace) 100 mg PO DAILY [facility] Last Admin: 06/21/17 11:17 Dose: 100 mg Doxycycline Hyclate (Doryx) 100 mg PO Q12 [facility] PRN Reason: Protocol Last Admin: 06/21/17 11:17 Dose: 100 mg Heparin Sodium (Porcine) (Heparin) 5,000 units SC Q8 [facility] PRN Reason: Protocol Last Admin: 06/21/17 14:57 Dose: Not Given Vancomycin HCl (Vancomycin 1gm) 1 gm in 250 mls @ 167 mls/hr IVPB Q12 [facility] Last Admin: 06/21/17 11:17 Dose: 167 mls/hr Meropenem 1g/NS 100mL IVPB (Meropenem 1g/Ns 100ml Ivpb) 1 gm in 100 mls @ 100 mls/hr IVPB Q8 [facility] PRN Reason: Protocol Stop: 07/19/17 11:31 Last Admin: 06/21/17 14:56 Dose: 100 mls/hr Ibuprofen (Motrin Tab) 800 mg PO Q6H PRN PRN Reason: Fever >100.4 F Last Admin: 06/18/17 23:43 Dose: 800 mg Lactobacillus Acidophilus (Bacid Acidophilus) 1 cap PO BID [facility] Last Admin: 06/21/17 18:38 Dose: 1 cap Ondansetron HCl (Zofran Inj) 4 mg IVP Q4H PRN PRN Reason: Nausea/Vomiting Oxycodone HCl (Oxycodone Immediate Release Tab) 10 mg PO Q6H PRN PRN Reason: Pain, severe (8-10) Last Admin: 06/21/17 14:57 Dose: 10 mg Pantoprazole Sodium (Protonix Ec Tab) 40 mg PO 0600 [facility] Last Admin: 06/21/17 05:53 Dose: 40 mg Tamsulosin HCl (Flomax) 0.4 mg PO DAILY [facility] Last Admin: 06/21/17 11:17 Dose: 0.4 mg - Labs Labs: 06/21/17 08:00 06/21/17 08:00 - Constitutional Appears: Non-toxic, No Acute Distress - Head Exam Head Exam: ATRAUMATIC, NORMOCEPHALIC - Eye Exam Eye Exam: EOMI, PERRL Pupil Exam: NORMAL ACCOMODATION, PERRL - ENT Exam ENT Exam: Mucous Membranes Moist, Normal External Ear Exam, TM's Normal Bilaterally - Neck Exam Neck Exam: Full ROM, Normal Inspection - Respiratory Exam Respiratory Exam: Clear to Ausculation Bilateral, NORMAL BREATHING PATTERN. absent: Rales, Rhonchi, Wheezes - Cardiovascular Exam Cardiovascular Exam: REGULAR RHYTHM, RRR, +S1, +S2 - GI/Abdominal Exam GI & Abdominal Exam: Soft, Tenderness, Normal Bowel Sounds. absent: Distended Additional comments: right sided suprapublic tenderness. - Extremities Exam Extremities Exam: Normal Inspection Additional comments: ROM of hips limited secondary to pain. - Neurological Exam Neurological Exam: Alert, Awake, CN II-XII Intact, Oriented x3 - Psychiatric Exam Psychiatric exam: Normal Affect, Normal Mood - Skin Skin Exam: Intact, Normal Color Assessment and Plan - Assessment and Plan (Free Text) Assessment: 26 yo male with increasing abdominal pain and fevers up to 102.0 F over the past 4 days. The patient with vague findings in the imaging studies of the abdomen. Hepatitis screen was negative for A, B, and C. The patient with mild elevation of the LFTs. [place] cultures sent. No leukocytosis. No specific findings in the urinalysis. Started on Cefepime and Flagyl for now. Free fluid in the abdomen as seen by Ultrasound. No reported fevers in the past 24 hours but temperature did reach 100.0 F. Supportive care. He is sexually active. Recently in [facility] 2 months ago. Most of the pain is in the suprapubic area now. Remains on Cefepime and Flagyl at this time. Awaiting Chlamydia testing to return. Testicular ultrasound shows a left varicocele. No reaction to Cefepime. On Doxycycline and Cefepime for antibiotic regimen. Add Vancomycin to regimen if no improvement tomorrow. Await full evaluation by Dr. Calderon. Noted negative Chlamydia and Gonorrhoeae studies. Nonspecific Bone scan but findings very weakly correlating to osteomyelitis in the left pubic symphysis. IR was able to obtain a sample of the fluid. I would check Quantiferon and Malaria/Babesia/Erlichia smear - negative. NM scan did not show any abnormalities. There has been no leukocytosis during this hospitalization. Awaiting results of the IR fluid sample. The patient and family had discussed the case with Dr. Burr... his suggestion was for IV antibiotics of Vancomycin and Meropenem for 6 weeks to cover Osteitis Pubis with osteomyelitis. The patient was not thrilled to require so many doses of antibiotics over the course of the day and wanted to consider this versus the option of continuing doxycycline orally for 6 weeks. Explained potential benefits and problems with the treatment options. Patient wanted to consider the options overnight. During CT guided aspiration, Dr. Norman noted increased haziness of the Symphysis pubis compared to previous studies. At the time of the study, Dr. Norman was able to identify a collection that he could aspirate. Fluid samples from aspiration showing gram negative eusebia from small collection at the border of the symphysis pubis. On Meropenem IV, Vancomycin IV, and PO Doxycycline. The patient is now amendable for use of Decadron which placed the order for the first dose this evening. Neurology did suggest 3-4 doses in total. The patient lack of resources will make many treatment options difficult as an outpatient. 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 Thank you for allowing me to participate in the care of the patient, we will follow with you.
[2017-06-22] MEDS: Pantoprazole 40 mg EC Tab PO SCH (05:20)
[2017-06-22] MEDS: Meropenem 1g/NS 100mL IVPB 1 GM/100 ML PIGGYBACK IVPB SCH (05:21)
[2017-06-22] MEDS: oxyCODONE 10 mg Immediate Release Tab PO PRN (06:34)
[2017-06-22 08:27] LABS: ALB/GLOB RATIO 1.1 (1.1-1.8); ALKALINE PHOSPHATASE 83 U/L (38-126); ALT/SGPT 77 U/L (7-56); AST/SGOT 32 U/L (17-59); BILIRUBIN,TOTAL 0.4 mg/dL (0.2-1.3); BLOOD UREA NITROGEN 23 mg/dL (7-21); CALCIUM 9.1 mg/dL (8.4-10.5); CARBON DIOXIDE 30 mmol/L (21-33); CHLORIDE 102 mmol/L (98-107); GFR AFRICAN-AMERICAN > 60; GLUCOSE,RANDOM 89 mg/dL (70-110); POTASSIUM 4.2 mmol/L (3.6-5.0); SODIUM 143 mmol/L (132-148); TOTAL PROTEIN 7.3 g/dL (5.8-8.3)
[2017-06-22 08:28] LABS: BASO # 0.08 K/mm3 (0.0-2.0); BASO % 0.9 % (0.0-3.0); EOS # 0.2 (0.0-0.7); EOS % 2.1 % (1.5-5.0); GRAN # 5.77 (1.4-6.5); GRAN % 66.8 % (50.0-68.0); HEMATOCRIT 37.6 % (42.0-52.0); LYMPH # 1.8 (1.2-3.4); LYMPH % 20.4 % (22.0-35.0); MEAN CELL VOLUME 90.4 fl (80.0-105.0); MEAN CORPUSCULAR HEMOGLOBIN 28.8 pg (25.0-35.0); MEAN CORPUSCULAR HGB CONC 31.9 g/dl (31.0-37.0); MEAN PLATELET VOLUME 9.4 fl (7.0-11.0); MONO # 0.9 (0.1-0.6); MONO % 9.8 % (1.0-6.0); RED CELL DISTRIBUTION WIDTH 13.2 % (11.5-14.5); WHITE BLOOD COUNT 8.6 10^3/ul (4.5-11.0)
[2017-06-22] MEDS: Lactobacillus Acidophilus 500 MU Cap PO SCH ×2 (10:03→17:23)
[2017-06-22] MEDS: Vancomycin 1gm in NS 250ml 1 GM/250 ML BAG IVPB SCH (10:03)
[2017-06-22 10:56] LABS: MALARIA BLOOD Negative
--- NOTE | 2017-06-22 13:24 | CP.PCM.PN ---
<Navdeep Salas - Last Filed: 06/22/17 13:26> Subjective - Date & Time of Evaluation Date of Evaluation: 06/22/17 Time of Evaluation: 06:21 - Subjective Subjective: Patient seen and examined at bedside. The patient reports a slight improvement in the pain from yesterday however his gait is still uncomfortable to him. The patient denies any chest pain, shortness of breath, lightheadedness, headache, sore throat, abdominal pain, nausea, vomiting, or any other complaints. Objective - Vital Signs/Intake and Output Vital Signs (last 24 hours): Temp Pulse Resp BP Pulse Ox 98.4 F 82 20 100/57 L 97 06/22/17 06:30 06/22/17 06:30 06/22/17 06:30 06/22/17 06:30 06/22/17 06:30 Intake and Output: 06/22/17 06/22/17 06:59 18:59 Intake Total 1220 Output Total 550 Balance 670 - Medications Medications: Current Medications Acetaminophen (Tylenol 325mg Tab) 650 mg PO Q4 PRN PRN Reason: Pain, Mild (1-3) Docusate Sodium (Colace) 100 mg PO DAILY [facility] Last Admin: 06/22/17 10:03 Dose: 100 mg Doxycycline Hyclate (Doryx) 100 mg PO Q12 [facility] PRN Reason: Protocol Last Admin: 06/22/17 10:03 Dose: 100 mg Heparin Sodium (Porcine) (Heparin) 5,000 units SC Q8 [facility] PRN Reason: Protocol Last Admin: 06/22/17 05:29 Dose: Not Given Ceftriaxone Sodium (Rocephin 2 Gm Ivpb) 2 gm in 100 mls @ 100 mls/hr IVPB DAILY [facility] PRN Reason: Protocol Ibuprofen (Motrin Tab) 800 mg PO Q6H PRN PRN Reason: Fever >100.4 F Last Admin: 06/18/17 23:43 Dose: 800 mg Lactobacillus Acidophilus (Bacid Acidophilus) 1 cap PO BID [facility] Last Admin: 06/22/17 10:03 Dose: 1 cap Ondansetron HCl (Zofran Inj) 4 mg IVP Q4H PRN PRN Reason: Nausea/Vomiting Oxycodone HCl (Oxycodone Immediate Release Tab) 10 mg PO Q6H PRN PRN Reason: Pain, severe (8-10) Last Admin: 06/22/17 06:34 Dose: 10 mg Pantoprazole Sodium (Protonix Ec Tab) 40 mg PO 0600 [facility] Last Admin: 06/22/17 05:20 Dose: 40 mg Tamsulosin HCl (Flomax) 0.4 mg PO DAILY [facility] Last Admin: 06/22/17 10:03 Dose: 0.4 mg - Labs Labs: 06/22/17 08:00 06/22/17 08:00 - Head Exam Head Exam: ATRAUMATIC, NORMAL INSPECTION, NORMOCEPHALIC - Eye Exam Eye Exam: EOMI, Normal appearance, PERRL. absent: Periorbital tenderness Pupil Exam: NORMAL ACCOMODATION, PERRL. absent: Irregular, Unequal - ENT Exam ENT Exam: Mucous Membranes Moist, Normal Exam - Neck Exam Neck Exam: Full ROM, Normal Inspection. absent: Lymphadenopathy, Thyromegaly - Respiratory Exam Respiratory Exam: Clear to Ausculation Bilateral, NORMAL BREATHING PATTERN. absent: Accessory Muscle Use, Chest Wall Tenderness, Respiratory Distress - Cardiovascular Exam Cardiovascular Exam: REGULAR RHYTHM, +S1, +S2. absent: Gallop, RRR, Rubs - GI/Abdominal Exam GI & Abdominal Exam: Soft, Normal Bowel Sounds. absent: Rigid, Tenderness - Exam External exam: absent: Swelling - Extremities Exam Extremities Exam: Full ROM, Normal Inspection - Back Exam Back Exam: NORMAL INSPECTION. absent: CVA tenderness (L), CVA tenderness (R), paraspinal tenderness - Neurological Exam Neurological Exam: Alert, Awake, CN II-XII Intact, Normal Gait, Oriented x3 - Psychiatric Exam Psychiatric exam: Normal Affect, Normal Mood - Skin Skin Exam: Dry, Intact Assessment and Plan - Assessment and Plan (Free Text) Assessment: 26 y/o M with no PMH presents with pelvic pain and fever. CT of abdomen/pelvis revealed free fluid in pelvis. Pt currently being followed by GI, Surgery, ID, Interventional Radiology, and Ortho, Heme/onc, Neurology. MRI Thoracic/Lumbar inconclusive. Plan: 1. Groin pain. Free fluid in Pelvis. r/o Osteomyelitis vs Osteitis pubis -Afebrile. No leukocytosis. -Pelvis MRI shows increased uptake in left pubis -Abd MRI - Small 1.3cm ovoid lesion at right hepatic dome (nonspecific). -Ortho recs appreciated -bone scan shows vague increased uptake in left pubis, no clinical significance -Pelvic x-ray - Doubtful osteitis pubis -ESR and CRP elevated -GI Following, appreciate recs -Symptoms unlikely due to GI process. Transaminases likely secondary to Abx vs. secondary to pubic pain process. -Surgery consulted, no acute surgical intervention -ID following. Will f/u with rec's tomorrow. -continue Merrem and Vancomycin. -Will monitor to ensure patient remains afebrile with single abx therapy with doxy for now -Discussed case with IR, Dr. Romeo Norman, regarding free fluid in pelvis and increased uptake in left pubis -No plans for bone biopsy or IR fluid drainage at this time. Patient expected to been seen by Dr. Noramn today. Will f/u with rec's tomorrow. -NM ceretec study performed - no signs of osteomyelitis of the left pubis -Tolerating regular diet -No evidence of fracture on recent CT scans. -Neurology consult requested, appreciate recs due antalgic gait -MRI Thoraic showed no acute compression or retropulsed fragments. no evidence of discitits osteomyelitis -MRI Lumbar showed no acute compression fractures, no discitis osteomyelitis. -IR tapped fluid and preliminary results show Gram negative rods. Will f/u with final fluid blood culture tomorrow determine which antibiotic to administer residential. -PICC line placed and set receive IV antibiotics 4-6 weeks pending final tap cultures. 2. Fever of unknown origin -No leukocytosis. Patient remains afebrile. -Mild anemia, normocytic -Heme/Onc following. Will f/u rec's tomorrow. -Abd Duplex US shows patent portal vein with hepatopetal flow. 3. Left Varicocele. Mild urinary retention -Continue flomax -Urology consulted current symptoms unlikely due to Urologic process 4. Transaminitis -Possibly secondary to abx use (unlilkely) -Hepatitis panel negative - AST 32(down from 45) and ALT 72(down 98). -GI following, appreciate recs -unlikely due to GI process 5. Atelectasis clinical course of fevers are unlikely due to atelectasis Encourage IS use 6. PPX Protonix SCDs <Delmis Bourgeois - Last Filed: 06/24/17 12:38> Objective - Vital Signs/Intake and Output Vital Signs (last 24 hours): Temp Pulse Resp BP Pulse Ox 98.7 F 89 20 106/58 L 99 06/23/17 18:00 06/23/17 18:00 06/23/17 18:00 06/23/17 18:00 06/23/17 18:00 - Labs Labs: 06/23/17 06:50 06/23/17 06:50 Attending/Attestation - Attestation I have personally seen and examined this patient.: Yes I have fully participated in the care of the patient.: Yes I have reviewed all pertinent clinical information, including history, physical exam and plan: Yes Notes (Text): 06/24/17 12:36 Patient was seen and examined with medical staff coordinator. Agreed with resident assessment and plan. Patient wound cultures are growing E coli, we will stop Vancomycin and Merpenem , will start patient on IV Rocephin 2 gram daily, discuss with ID , plan for 4- 6 weeks treatment.PICC line is placed Patient LFT are coming down,Pain is better. Case was discussed with ID attending. Management plan was discussed in detail with patient and family Education was provided.
--- NOTE | 2017-06-22 14:17 | CP.PCM.PN ---
Subjective - Date & Time of Evaluation Date of Evaluation: 06/22/17 Time of Evaluation: 12:00 - Subjective Subjective: Infectious Disease Follow Up: June 22, 2017 26 yo male presenting with worsening lower abdominal and suprapubic pain starting 2 days ago. Initially started with earaches and fevers up to 102 F. This started 4 days ago. He was given Amoxicillin through an Urgent care without any relief. The patient has no significant medical history. Seen by surgery. Free fluid in the abdominal ultrasound. Increased echogenecity in the liver on CT scan. Patient complaining mostly of suprapubic pain around the right groin. Remains on Cefepime and Flagyl for antibiotic coverage. Repeat CT scan shows slightly increased distension of the gallbladder. No specific inflammation of the intestines. Testicular ultrasound is showing left varicocele but no mass or torsion. Afebrile. Cultures negative to date. Chlamydia and Gonorrhoeae is negative. Procalcitonin is nonspecific. MRI showed uptake in pelvic bone but unclear if there is osteomyelitis. Bladder ultrasound showed no bladder abnormalities but still showing fluid in abdominal/pelvic cavity. Bone scan is showing nonspecific vaguely increased uptake of left pubic symphysis compared to right. Finding is of uncertain etiology and doubtful clinical significant. Pelvic X-rays are showing bilateral femoral lesser trochanter old osseous avulsions. CMV tests negative. Coxsackie negative. Lyme negative. RPR negative. Hepatitis B and C negative. HIV negative. Malaria and Babesia smear negative. Chlamydia negative and Gonorrhoea negative. Influenza negative. Nuclear Medicine scan negative. MRI studies of Thoracic and Lumbar spine show no acute issues. Afebrile the past IR performed aspiration of the abdominal fluid draining about 2 cc of fluid as the CT guided imaging showed slight increase in haziness to the borders of the pubic symphysis. A small collection was suspected that Dr. Norman was able to obtain samples from. The culture from this sample is showing gram negative rods. On IV Meropenem and IV Vancomycin currently. On PO Doxycycline. E. coli growing from cultures. Sensitive to PCN and Fluoroquinolones. Objective - Vital Signs/Intake and Output Vital Signs (last 24 hours): Temp Pulse Resp BP Pulse Ox 98.1 F 72 18 102/60 99 06/22/17 13:33 06/22/17 13:33 06/22/17 13:33 06/22/17 13:33 06/22/17 13:33 Intake and Output: 06/22/17 06/22/17 06:59 18:59 Intake Total 1220 Output Total 550 Balance 670 - Medications Medications: Current Medications Acetaminophen (Tylenol 325mg Tab) 650 mg PO Q4 PRN PRN Reason: Pain, Mild (1-3) Docusate Sodium (Colace) 100 mg PO DAILY [facility] Last Admin: 06/22/17 10:03 Dose: 100 mg Doxycycline Hyclate (Doryx) 100 mg PO Q12 [facility] PRN Reason: Protocol Last Admin: 06/22/17 10:03 Dose: 100 mg Heparin Sodium (Porcine) (Heparin) 5,000 units SC Q8 [facility] PRN Reason: Protocol Last Admin: 06/22/17 05:29 Dose: Not Given Ceftriaxone Sodium (Rocephin 2 Gm Ivpb) 2 gm in 100 mls @ 100 mls/hr IVPB DAILY [facility] PRN Reason: Protocol Ibuprofen (Motrin Tab) 800 mg PO Q6H PRN PRN Reason: Fever >100.4 F Last Admin: 06/18/17 23:43 Dose: 800 mg Lactobacillus Acidophilus (Bacid Acidophilus) 1 cap PO BID [facility] Last Admin: 06/22/17 10:03 Dose: 1 cap Ondansetron HCl (Zofran Inj) 4 mg IVP Q4H PRN PRN Reason: Nausea/Vomiting Oxycodone HCl (Oxycodone Immediate Release Tab) 10 mg PO Q6H PRN PRN Reason: Pain, severe (8-10) Last Admin: 06/22/17 06:34 Dose: 10 mg Pantoprazole Sodium (Protonix Ec Tab) 40 mg PO 0600 [facility] Last Admin: 06/22/17 05:20 Dose: 40 mg Tamsulosin HCl (Flomax) 0.4 mg PO DAILY [facility] Last Admin: 06/22/17 10:03 Dose: 0.4 mg - Labs Labs: 06/22/17 08:00 06/22/17 08:00 - Constitutional Appears: Non-toxic, No Acute Distress - Head Exam Head Exam: ATRAUMATIC, NORMOCEPHALIC - Eye Exam Eye Exam: EOMI, PERRL Pupil Exam: NORMAL ACCOMODATION, PERRL - ENT Exam ENT Exam: Mucous Membranes Moist, Normal External Ear Exam, TM's Normal Bilaterally - Neck Exam Neck Exam: Full ROM, Normal Inspection - Respiratory Exam Respiratory Exam: Clear to Ausculation Bilateral, NORMAL BREATHING PATTERN. absent: Rales, Rhonchi, Wheezes - Cardiovascular Exam Cardiovascular Exam: REGULAR RHYTHM, RRR, +S1, +S2 - GI/Abdominal Exam GI & Abdominal Exam: Soft, Tenderness, Normal Bowel Sounds. absent: Distended Additional comments: right sided suprapublic tenderness. - Extremities Exam Extremities Exam: Normal Inspection Additional comments: ROM of hips limited secondary to pain. - Neurological Exam Neurological Exam: Alert, Awake, CN II-XII Intact, Oriented x3 - Psychiatric Exam Psychiatric exam: Normal Affect, Normal Mood - Skin Skin Exam: Intact, Normal Color Assessment and Plan - Assessment and Plan (Free Text) Assessment: 26 yo male with increasing abdominal pain and fevers up to 102.0 F over the past 4 days. The patient with vague findings in the imaging studies of the abdomen. Hepatitis screen was negative for A, B, and C. The patient with mild elevation of the LFTs. [place] cultures sent. No leukocytosis. No specific findings in the urinalysis. Started on Cefepime and Flagyl for now. Free fluid in the abdomen as seen by Ultrasound. No reported fevers in the past 24 hours but temperature did reach 100.0 F. Supportive care. He is sexually active. Recently in [place] 2 months ago. Most of the pain is in the suprapubic area now. Remains on Cefepime and Flagyl at this time. Awaiting Chlamydia testing to return. Testicular ultrasound shows a left varicocele. No reaction to Cefepime. On Doxycycline and Cefepime for antibiotic regimen. Add Vancomycin to regimen if no improvement tomorrow. Await full evaluation by Dr. Calderon. Noted negative Chlamydia and Gonorrhoeae studies. Nonspecific Bone scan but findings very weakly correlating to osteomyelitis in the left pubic symphysis. IR was able to obtain a sample of the fluid. I would check Quantiferon and Malaria/Babesia/Erlichia smear - negative. NM scan did not show any abnormalities. There has been no leukocytosis during this hospitalization. Awaiting results of the IR fluid sample. The patient and family had discussed the case with Dr. Burr... his suggestion was for IV antibiotics of Vancomycin and Meropenem for 6 weeks to cover Osteitis Pubis with osteomyelitis. The patient was not thrilled to require so many doses of antibiotics over the course of the day and wanted to consider this versus the option of continuing doxycycline orally for 6 weeks. Explained potential benefits and problems with the treatment options. Patient wanted to consider the options overnight. During CT guided aspiration, Dr. Norman noted increased haziness of the Symphysis pubis compared to previous studies. At the time of the study, Dr. Norman was able to identify a collection that he could aspirate. Fluid samples from aspiration showing gram negative eusebia from small collection at the border of the symphysis pubis. On Meropenem IV, Vancomycin IV, and PO Doxycycline. The patient is now amendable for use of Decadron which placed the order for the first dose this evening. Neurology did suggest 3-4 doses in total. The patient lack of resources will make many treatment options difficult as an outpatient. 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 Given sensitivities for E. Coli, choices include IV antibiotics with Rocephin 2gm IV daily versus oral therapy with PO Cipro 500mg BID. PO Cipro has nearly the same bioavailability as IV Cipro and good bone penetration. Either way, 6 weeks of antibiotics should be given. Thank you for allowing me to participate in the care of the patient, we will follow with you.
[2017-06-22] MEDS: cefTRIAXone 2 GM IN NS 2 GM/100 ML BAG IVPB SCH (14:39)
[2017-06-22 20:37] LABS: E.CHAFFEENSIS AB (IGG) <1:64; E.CHAFFEENSIS AB (IGM) <1:20
[2017-06-23] MEDS: Pantoprazole 40 mg EC Tab PO SCH (05:13)
[2017-06-23 07:13] LABS: BASO # 0.07 K/mm3 (0.0-2.0); BASO % 0.7 % (0.0-3.0); EOS # 0.2 (0.0-0.7); EOS % 2.1 % (1.5-5.0); GRAN # 6.8 (1.4-6.5); GRAN % 69.1 % (50.0-68.0); HEMATOCRIT 38.3 % (42.0-52.0); LYMPH # 1.9 (1.2-3.4); LYMPH % 19.1 % (22.0-35.0); MEAN CELL VOLUME 90.3 fl (80.0-105.0); MEAN CORPUSCULAR HEMOGLOBIN 29.2 pg (25.0-35.0); MEAN CORPUSCULAR HGB CONC 32.4 g/dl (31.0-37.0); MEAN PLATELET VOLUME 9.5 fl (7.0-11.0); MONO # 0.9 (0.1-0.6); RED CELL DISTRIBUTION WIDTH 13.3 % (11.5-14.5); WHITE BLOOD COUNT 9.9 10^3/ul (4.5-11.0)
[2017-06-23 07:27] LABS: ALB/GLOB RATIO 1.1 (1.1-1.8); ALKALINE PHOSPHATASE 94 U/L (38-126); ALT/SGPT 66 U/L (7-56); AST/SGOT 35 U/L (17-59); BILIRUBIN,TOTAL 0.5 mg/dL (0.2-1.3); BLOOD UREA NITROGEN 22 mg/dL (7-21); CALCIUM 9.4 mg/dL (8.4-10.5); CARBON DIOXIDE 30 mmol/L (21-33); CHLORIDE 98 mmol/L (98-107); GFR AFRICAN-AMERICAN > 60; GLUCOSE,RANDOM 92 mg/dL (70-110); POTASSIUM 4.2 mmol/L (3.6-5.0); SODIUM 141 mmol/L (132-148); TOTAL PROTEIN 7.6 g/dL (5.8-8.3)
[2017-06-23 09:15] VITALS: RESP 20
[2017-06-23] MEDS: Lactobacillus Acidophilus 500 MU Cap PO SCH ×2 (10:07→17:34)
[2017-06-23] MEDS: cefTRIAXone 2 GM IN NS 2 GM/100 ML BAG IVPB SCH (10:09)
[2017-06-23] MEDS ORDERED: Influenza Vaccine 60 mcg/0.5 mL SYR (4YR UP) IM ONE (16:13)
[2017-06-23 18:01] VITALS: BP 106/58; PULSE 89; TEMP 98.7; O2SAT 99
--- NOTE | 2017-06-23 21:47 | CP.PCM.DIS ---
<Navdeep Salas - Last Filed: 06/23/17 22:02> Provider - Provider Date of Admission: 06/13/17 07:51 Attending physician: Delmis Bourgeois MD Time Spent in preparation of Discharge (in minutes): 45 Hospital Course - Lab Results Lab Results: Micro Results 06/20/17 15:30 Other: Please Indicate Anaerobic Culture - Final NO ANAEROBES ISOLATED. 06/20/17 15:30 Other: Please Indicate Gram Stain - Final 06/20/17 15:30 Other: Please Indicate Body Fluid Culture - Final Escherichia Coli 06/20/17 15:30 Other: Please Indicate Mycobacterial Culture - Preliminary 06/20/17 15:30 Other: Please Indicate Fungal Culture - Preliminary 06/16/17 01:30 Blood Blood Culture - Final NO GROWTH AFTER 5 DAYS 06/16/17 01:30 Blood Gram Stain - Final TEST NOT PERFORMED 06/16/17 13:20 Urine Urine Culture - Final No Growth (<1,000 CFU/ML) Most Recent Lab Values WBC 9.9 10^3/ul (4.5-11.0) 06/23/17 06:50 RBC 4.24 10^6/uL (3.5-6.1) 06/23/17 06:50 Hgb 12.4 g/dL (14.0-18.0) L 06/23/17 06:50 Hct 38.3 % (42.0-52.0) L 06/23/17 06:50 MCV 90.3 fl (80.0-105.0) 06/23/17 06:50 MCH 29.2 pg (25.0-35.0) 06/23/17 06:50 MCHC 32.4 g/dl (31.0-37.0) 06/23/17 06:50 RDW 13.3 % (11.5-14.5) 06/23/17 06:50 Plt Count 450 10^3/uL (120.0-450.0) 06/23/17 06:50 MPV 9.5 fl (7.0-11.0) 06/23/17 06:50 Gran % 69.1 % (50.0-68.0) H 06/23/17 06:50 Lymph % (Auto) 19.1 % (22.0-35.0) L 06/23/17 06:50 Heard % (Auto) 9.0 % (1.0-6.0) H 06/23/17 06:50 Eos % (Auto) 2.1 % (1.5-5.0) 06/23/17 06:50 Baso % (Auto) 0.7 % (0.0-3.0) 06/23/17 06:50 Gran # 6.80 (1.4-6.5) H 06/23/17 06:50 Lymph # 1.9 (1.2-3.4) 06/23/17 06:50 Heard # 0.9 (0.1-0.6) H 06/23/17 06:50 Eos # 0.2 (0.0-0.7) 06/23/17 06:50 Baso # 0.07 K/mm3 (0.0-2.0) 06/23/17 06:50 ESR 50 mm/hr (0.0-15.0) H 06/22/17 07:10 Retic Count 1.81 % (0.5-1.5) H 06/18/17 11:01 Sodium 141 mmol/L (132-148) 06/23/17 06:50 Potassium 4.2 mmol/L (3.6-5.0) 06/23/17 06:50 Chloride 98 mmol/L (98-107) 06/23/17 06:50 Carbon Dioxide 30 mmol/L (21-33) 06/23/17 06:50 Anion Gap 17 (10-20) 06/23/17 06:50 BUN 22 mg/dL (7-21) H 06/23/17 06:50 Creatinine 0.8 mg/dL (0.8-1.5) 06/23/17 06:50 Est GFR ( Amer) > 60 06/23/17 06:50 Est GFR (Non-Af Amer) > 60 06/23/17 06:50 Random Glucose 92 mg/dL (70-110) 06/23/17 06:50 Lactic Acid 0.6 mmol/L (0.7-2.1) L 06/10/17 07:30 Calcium 9.4 mg/dL (8.4-10.5) 06/23/17 06:50 Phosphorus 2.7 mg/dL (2.5-4.5) 06/11/17 06:20 Magnesium 1.7 mg/dL (1.7-2.2) 06/11/17 06:20 Ferritin 234.0 ng/mL 06/18/17 11:01 Total Bilirubin 0.5 mg/dL (0.2-1.3) 06/23/17 06:50 AST 35 U/L (17-59) 06/23/17 06:50 ALT 66 U/L (7-56) H 06/23/17 06:50 Alkaline Phosphatase 94 U/L (38-126) 06/23/17 06:50 Lactate Dehydrogenase 537 U/L (333-699) 06/17/17 07:00 C-React Prot High Sens > 15.00 mg/L (1.00-3.00) H 06/17/17 07:00 Total Protein 7.6 g/dL (5.8-8.3) 06/23/17 06:50 Albumin 3.9 g/dL (3.0-4.8) 06/23/17 06:50 Globulin 3.7 gm/dL 06/23/17 06:50 Albumin/Globulin Ratio 1.1 (1.1-1.8) 06/23/17 06:50 Lipase 98 U/L (23-300) 06/10/17 00:15 Prostate Specific Ag 0.4 ng/mL (0.00-2.5) 06/14/17 06:41 Procalcitonin 0.74 NG/ML (0.19-0.49) H 06/11/17 09:30 Urine Color Yellow (YELLOW) 06/16/17 13:20 Urine Appearance Clear (CLEAR) 06/16/17 13:20 Urine pH 7.0 (4.7-8.0) 06/16/17 13:20 Ur Specific Warren 1.020 (1.005-1.035) 06/16/17 13:20 Urine Protein Negative mg/dL (<30 mg/dL) 06/16/17 13:20 Urine Glucose (UA) Negative mg/dL (NEGATIVE) 06/16/17 13:20 Urine Ketones Negative mg/dL (NEGATIVE) 06/16/17 13:20 Urine Blood Negative (NEGATIVE) 06/16/17 13:20 Urine Nitrate Negative (NEGATIVE) 06/16/17 13:20 Urine Bilirubin Negative (NEGATIVE) 06/16/17 13:20 Urine Urobilinogen 1.0 E.U./dL (<1 E.U./dL) H 06/16/17 13:20 Ur Leukocyte Esterase Negative Mercedes/uL (NEGATIVE) 06/16/17 13:20 Urine Opiates Screen Negative (NEGATIVE) 06/11/17 19:30 Urine Methadone Screen Negative (NEGATIVE) 06/11/17 19:30 Acetaminophen < 10.0 ug/ml (10.0-20.0) L 06/10/17 07:30 Ur Barbiturates Screen Negative (NEGATIVE) 06/11/17 19:30 Ur Phencyclidine Scrn Negative (NEGATIVE) 06/11/17 19:30 Ur Amphetamines Screen Negative (NEGATIVE) 06/11/17 19:30 U Benzodiazepines Scrn Negative (NEGATIVE) 06/11/17 19:30 U Oth Cocaine Metabols Negative (NEGATIVE) 06/11/17 19:30 U Cannabinoids Screen Negative (NEGATIVE) 06/11/17 19:30 NORA Screen Negative (Negative) 06/12/17 07:10 RPR Nonreactive (NONREACTIVE) 06/10/17 07:30 Lyme Disease IgG Ab (IFA) Negative (NEGATIVE) 06/15/17 06:09 Lyme Disease IgM Ab Negative (NEGATIVE) 06/15/17 06:09 C.trachomatis RNA (TMA) Not detected (Not Detected) 06/11/17 18:20 Coxsackie Type A(2) Ab <1:8 06/11/17 12:45 Coxsackie Type A(4) Ab <1:8 06/11/17 12:45 Coxsackie Type A(7) Ab <1:8 06/11/17 12:45 Coxsackie Type A(9) Ab <1:8 06/11/17 12:45 Coxsackie Type A(16) Ab <1:8 06/11/17 12:45 Coxsackie Type B(1) Ab <1:8 06/11/17 12:45 Coxsackie Type B(2) Ab <1:8 06/11/17 12:45 Coxsackie Type B(3) Ab <1:8 06/11/17 12:45 Coxsackie Type B(4) Ab <1:8 06/11/17 12:45 Coxsackie Type B(5) Ab <1:8 06/11/17 12:45 Coxsackie Type B(6) Ab <1:8 06/11/17 12:45 CMV Specimen Source Plasma 06/18/17 12:05 CMV IgG Ab <0.60 U/mL 06/15/17 06:09 CMV IgM Ab <30.00 AU/mL 06/15/17 06:09 CMV DNA Quant PCR <200 IU/mL 06/18/17 12:05 CMV Qnt PCR log IU/mL <2.30 Log IU/mL 06/18/17 12:05 E. chaffeensis IgG Ab <1:64 06/18/17 12:05 E. chaffeensis IgM Ab <1:20 06/18/17 12:05 E. chaffeensis Interp See note 06/18/17 12:05 Hepatitis A IgM Ab Negative (NEGATIVE) 06/10/17 07:30 Hep Bs Antigen Negative (NEGATIVE) 06/10/17 07:30 Hep B Core IgM Ab Negative (NEGATIVE) 06/10/17 07:30 Hepatitis C Antibody Negative (NEGATIVE) 06/10/17 07:30 HIV 1&2 Ag/Ab, 4th Gen Nonreactive (Nonreactive) 06/10/17 06:30 Influenza Typ A,B (EIA) Negative for flu a/b (NEGATIVE) 06/11/17 05:40 Malaria Source See note (NEGATIVE) 06/17/17 07:00 Malaria/Babesia Smear Negative 06/17/17 07:00 N.gonorrhoeae RNA (TMA) Not detected (Not Detected) 06/11/17 18:20 Toxoplasma IgG Ab <7.20 IU/mL 06/18/17 12:05 Toxoplasma IgM Ab <8.00 AU/mL 06/18/17 12:05 Toxoplasma Ab Interp TEST NOT PERFORMED 06/18/17 12:05 TB Test (QFT) Nil 0.36 IU/mL 06/17/17 07:25 TB Test Mitogen - Nil 0.42 IU/mL 06/17/17 07:25 TB Test TB - Nil <0.00 IU/mL 06/17/17 07:25 TB Test (QFT) Indeterminate (Negative) H 06/17/17 07:25 - Hospital Course Hospital Course: This is a 26 year old with no PMH presents for worsening abdominal pain, and fever to 102 of four days duration. He denies N/V/D/C, dysuria, hematuria, sick contacts, CP, SOB, rash, urethral discharge, scrotal pain. He admits to traveling to [facility] 2 months ago. He has one sexual partner whom he has been with for several years, but does not use protection. He denies any recent trauma or injury. Patient had a CT abdomen and pelvis done that showed free fluid in the pelvis, non-visualized appendix, and fatty liver.Pelvis MRI done shows increased uptake in left pubis. Abdomen MRI - Small 1.3cm ovoid lesion at right hepatic dome (nonspecific). Thoracic and lumbar MRI showed indeterminate findings. Bone scan shows vague increased uptake in left pubis, no clinical significance. Pelvic x-ray showed Doubtful osteitis pubis. Patient had free fluid tapped by Interventional Radiology. The fluid grew E.Coli. Patient was seen by Urology, GI, Surgery, Infectious Disease, and orthopedics while in the hospital. Patient was examined today and was a-febrile and no leukocytosis. The patient was discharged on 6 weeks IV antibiotics. Discharge Exam - Head Exam Head Exam: ATRAUMATIC, NORMAL INSPECTION, NORMOCEPHALIC - Eye Exam Eye Exam: EOMI, Normal appearance, PERRL. absent: Periorbital swelling, Periorbital tenderness Pupil Exam: NORMAL ACCOMODATION, PERRL - ENT Exam ENT Exam: Normal Exam, Normal Oropharynx - Neck Exam Neck exam: Normal Inspection - Respiratory Exam Respiratory Exam: Clear to PA & Lateral, NORMAL BREATHING PATTERN, UNREMARKABLE. absent: Chest Wall Tenderness - Cardiovascular Exam Cardiovascular Exam: REGULAR RHYTHM, RRR, +S1, +S2 - GI/Abdominal Exam GI & Abdominal Exam: Normal Bowel Sounds, Unremarkable - Extremities Exam Extremities exam: full ROM - Back Exam Back exam: NORMAL INSPECTION. absent: CVA tenderness (L), CVA tenderness (R), paraspinal tenderness - Neurological Exam Neurological exam: Alert, CN II-XII Intact, Normal Gait, Oriented x3 - Psychiatric Exam Psychiatric exam: Normal Affect, Normal Mood - Skin Skin Exam: Dry, Normal Color, Warm Discharge Plan - Discharge Medications Prescriptions: cefTRIAXone [Rocephin] 2 gm IVPB DAILY #42 vial Lactobacillus Acidophilus [Acidophilus Lactobacilli] 1 each PO BID #14 capsule Metronidazole [Flagyl] 500 mg PO BID #84 tablet traMADol [Ultram] 50 mg PO Q8 PRN #15 tab PRN Reason: Pain, Severe (8-10) - Follow Up Plan Condition: FAIR Disposition: HOME/ ROUTINE Instructions: Osteomyelitis (DC), How to Choose and Use a Cane (GEN), Peripherally Inserted Central Catheters and Midline Catheters (DC) Additional Instructions: 1.Patient advised to follow up with PMD within one week of discharge. 2.Patient advised to obtain weekly cbc w/diff, cmp, and crp from PMD. 3.Patient advised to return to emergency department for any new or worsening symptoms. <Delmis Bourgeois - Last Filed: 06/24/17 12:41> Provider - Provider Date of Admission: 06/13/17 07:51 Attending physician: Delmis Bourgeois MD Hospital Course - Lab Results Lab Results: Micro Results 06/20/17 15:30 Other: Please Indicate Anaerobic Culture - Final NO ANAEROBES ISOLATED. 06/20/17 15:30 Other: Please Indicate Gram Stain - Final 06/20/17 15:30 Other: Please Indicate Body Fluid Culture - Final Escherichia Coli 06/20/17 15:30 Other: Please Indicate Mycobacterial Culture - Preliminary 06/20/17 15:30 Other: Please Indicate Fungal Culture - Preliminary 06/16/17 01:30 Blood Blood Culture - Final NO GROWTH AFTER 5 DAYS 06/16/17 01:30 Blood Gram Stain - Final TEST NOT PERFORMED 06/16/17 13:20 Urine Urine Culture - Final No Growth (<1,000 CFU/ML) Most Recent Lab Values WBC 9.9 10^3/ul (4.5-11.0) 06/23/17 06:50 RBC 4.24 10^6/uL (3.5-6.1) 06/23/17 06:50 Hgb 12.4 g/dL (14.0-18.0) L 06/23/17 06:50 Hct 38.3 % (42.0-52.0) L 06/23/17 06:50 MCV 90.3 fl (80.0-105.0) 06/23/17 06:50 MCH 29.2 pg (25.0-35.0) 06/23/17 06:50 MCHC 32.4 g/dl (31.0-37.0) 06/23/17 06:50 RDW 13.3 % (11.5-14.5) 06/23/17 06:50 Plt Count 450 10^3/uL (120.0-450.0) 06/23/17 06:50 MPV 9.5 fl (7.0-11.0) 06/23/17 06:50 Gran % 69.1 % (50.0-68.0) H 06/23/17 06:50 Lymph % (Auto) 19.1 % (22.0-35.0) L 06/23/17 06:50 Heard % (Auto) 9.0 % (1.0-6.0) H 06/23/17 06:50 Eos % (Auto) 2.1 % (1.5-5.0) 06/23/17 06:50 Baso % (Auto) 0.7 % (0.0-3.0) 06/23/17 06:50 Gran # 6.80 (1.4-6.5) H 06/23/17 06:50 Lymph # 1.9 (1.2-3.4) 06/23/17 06:50 Heard # 0.9 (0.1-0.6) H 06/23/17 06:50 Eos # 0.2 (0.0-0.7) 06/23/17 06:50 Baso # 0.07 K/mm3 (0.0-2.0) 06/23/17 06:50 ESR 50 mm/hr (0.0-15.0) H 06/22/17 07:10 Retic Count 1.81 % (0.5-1.5) H 06/18/17 11:01 Sodium 141 mmol/L (132-148) 06/23/17 06:50 Potassium 4.2 mmol/L (3.6-5.0) 06/23/17 06:50 Chloride 98 mmol/L (98-107) 06/23/17 06:50 Carbon Dioxide 30 mmol/L (21-33) 06/23/17 06:50 Anion Gap 17 (10-20) 06/23/17 06:50 BUN 22 mg/dL (7-21) H 06/23/17 06:50 Creatinine 0.8 mg/dL (0.8-1.5) 06/23/17 06:50 Est GFR ( Amer) > 60 06/23/17 06:50 Est GFR (Non-Af Amer) > 60 06/23/17 06:50 Random Glucose 92 mg/dL (70-110) 06/23/17 06:50 Lactic Acid 0.6 mmol/L (0.7-2.1) L 06/10/17 07:30 Calcium 9.4 mg/dL (8.4-10.5) 06/23/17 06:50 Phosphorus 2.7 mg/dL (2.5-4.5) 06/11/17 06:20 Magnesium 1.7 mg/dL (1.7-2.2) 06/11/17 06:20 Ferritin 234.0 ng/mL 06/18/17 11:01 Total Bilirubin 0.5 mg/dL (0.2-1.3) 06/23/17 06:50 AST 35 U/L (17-59) 06/23/17 06:50 ALT 66 U/L (7-56) H 06/23/17 06:50 Alkaline Phosphatase 94 U/L (38-126) 06/23/17 06:50 Lactate Dehydrogenase 537 U/L (333-699) 06/17/17 07:00 C-React Prot High Sens > 15.00 mg/L (1.00-3.00) H 06/17/17 07:00 Total Protein 7.6 g/dL (5.8-8.3) 06/23/17 06:50 Albumin 3.9 g/dL (3.0-4.8) 06/23/17 06:50 Globulin 3.7 gm/dL 06/23/17 06:50 Albumin/Globulin Ratio 1.1 (1.1-1.8) 06/23/17 06:50 Lipase 98 U/L (23-300) 06/10/17 00:15 Prostate Specific Ag 0.4 ng/mL (0.00-2.5) 06/14/17 06:41 Procalcitonin 0.74 NG/ML (0.19-0.49) H 06/11/17 09:30 Urine Color Yellow (YELLOW) 06/16/17 13:20 Urine Appearance Clear (CLEAR) 06/16/17 13:20 Urine pH 7.0 (4.7-8.0) 06/16/17 13:20 Ur Specific Warren 1.020 (1.005-1.035) 06/16/17 13:20 Urine Protein Negative mg/dL (<30 mg/dL) 06/16/17 13:20 Urine Glucose (UA) Negative mg/dL (NEGATIVE) 06/16/17 13:20 Urine Ketones Negative mg/dL (NEGATIVE) 06/16/17 13:20 Urine Blood Negative (NEGATIVE) 06/16/17 13:20 Urine Nitrate Negative (NEGATIVE) 06/16/17 13:20 Urine Bilirubin Negative (NEGATIVE) 06/16/17 13:20 Urine Urobilinogen 1.0 E.U./dL (<1 E.U./dL) H 06/16/17 13:20 Ur Leukocyte Esterase Negative Mercedes/uL (NEGATIVE) 06/16/17 13:20 Urine Opiates Screen Negative (NEGATIVE) 06/11/17 19:30 Urine Methadone Screen Negative (NEGATIVE) 06/11/17 19:30 Acetaminophen < 10.0 ug/ml (10.0-20.0) L 06/10/17 07:30 Ur Barbiturates Screen Negative (NEGATIVE) 06/11/17 19:30 Ur Phencyclidine Scrn Negative (NEGATIVE) 06/11/17 19:30 Ur Amphetamines Screen Negative (NEGATIVE) 06/11/17 19:30 U Benzodiazepines Scrn Negative (NEGATIVE) 06/11/17 19:30 U Oth Cocaine Metabols Negative (NEGATIVE) 06/11/17 19:30 U Cannabinoids Screen Negative (NEGATIVE) 06/11/17 19:30 NORA Screen Negative (Negative) 06/12/17 07:10 RPR Nonreactive (NONREACTIVE) 06/10/17 07:30 Lyme Disease IgG Ab (IFA) Negative (NEGATIVE) 06/15/17 06:09 Lyme Disease IgM Ab Negative (NEGATIVE) 06/15/17 06:09 C.trachomatis RNA (TMA) Not detected (Not Detected) 06/11/17 18:20 Coxsackie Type A(2) Ab <1:8 06/11/17 12:45 Coxsackie Type A(4) Ab <1:8 06/11/17 12:45 Coxsackie Type A(7) Ab <1:8 06/11/17 12:45 Coxsackie Type A(9) Ab <1:8 06/11/17 12:45 Coxsackie Type A(16) Ab <1:8 06/11/17 12:45 Coxsackie Type B(1) Ab <1:8 06/11/17 12:45 Coxsackie Type B(2) Ab <1:8 06/11/17 12:45 Coxsackie Type B(3) Ab <1:8 06/11/17 12:45 Coxsackie Type B(4) Ab <1:8 06/11/17 12:45 Coxsackie Type B(5) Ab <1:8 06/11/17 12:45 Coxsackie Type B(6) Ab <1:8 06/11/17 12:45 CMV Specimen Source Plasma 06/18/17 12:05 CMV IgG Ab <0.60 U/mL 06/15/17 06:09 CMV IgM Ab <30.00 AU/mL 06/15/17 06:09 CMV DNA Quant PCR <200 IU/mL 06/18/17 12:05 CMV Qnt PCR log IU/mL <2.30 Log IU/mL 06/18/17 12:05 E. chaffeensis IgG Ab <1:64 06/18/17 12:05 E. chaffeensis IgM Ab <1:20 06/18/17 12:05 E. chaffeensis Interp See note 06/18/17 12:05 Hepatitis A IgM Ab Negative (NEGATIVE) 06/10/17 07:30 Hep Bs Antigen Negative (NEGATIVE) 06/10/17 07:30 Hep B Core IgM Ab Negative (NEGATIVE) 06/10/17 07:30 Hepatitis C Antibody Negative (NEGATIVE) 06/10/17 07:30 HIV 1&2 Ag/Ab, 4th Gen Nonreactive (Nonreactive) 06/10/17 06:30 Influenza Typ A,B (EIA) Negative for flu a/b (NEGATIVE) 06/11/17 05:40 Malaria Source See note (NEGATIVE) 06/17/17 07:00 Malaria/Babesia Smear Negative 06/17/17 07:00 N.gonorrhoeae RNA (TMA) Not detected (Not Detected) 06/11/17 18:20 Toxoplasma IgG Ab <7.20 IU/mL 06/18/17 12:05 Toxoplasma IgM Ab <8.00 AU/mL 06/18/17 12:05 Toxoplasma Ab Interp TEST NOT PERFORMED 06/18/17 12:05 TB Test (QFT) Nil 0.36 IU/mL 06/17/17 07:25 TB Test Mitogen - Nil 0.42 IU/mL 06/17/17 07:25 TB Test TB - Nil <0.00 IU/mL 06/17/17 07:25 TB Test (QFT) Indeterminate (Negative) H 06/17/17 07:25 Attending/Attestation - Attestation I have personally seen and examined this patient.: Yes I have fully participated in the care of the patient.: Yes I have reviewed all pertinent clinical information, including history, physical exam and plan: Yes Notes (Text): 06/24/17 12:39 Patient was seen and examined with medical insurance verifier. Agreed with resident assessment and plan. Patient is feeling better.He is afebrile.Wound cultures are growing E coli.Case was discussed with Dr.Richard LOUIS and .He will be discharged home with IV Rocephin 2 gram daily and PO flagyl for 6 weeks.He will need weekly CBC, CMP and CRP Management plan was discussed in detail with patient and family. All questions were answered. Education was provided.
== END 2017-06-23 20:11 | disposition home or self-care (01) | DRG 244 ==
LOC: ED 23:44 → ERH 06-10 01:48 → 3RSO 06-10 02:44 → OBSVTOIN 06-13 07:51
PROVIDERS: ADMIT Internal Medicine; ATTEND Internal Medicine
PROC: BW2GZZZ Computerized Tomography (CT Scan) of Pelvic Region (ICD-10-PCS; 2017-06-20)
PROC: 0W9J3ZZ Drainage of Pelvic Cavity, Percutaneous Approach (ICD-10-PCS; principal; 2017-06-20 15:00)
PROC: 02HV33Z Insertion of Infusion Device into Superior Vena Cava, Percutaneous Approach (ICD-10-PCS; 2017-06-21)
PROC: B548ZZA Ultrasonography of Superior Vena Cava, Guidance (ICD-10-PCS; 2017-06-21)
DX: M85.38 Osteitis condensans, other site (principal); J98.11 Atelectasis; K76.0 Fatty (change of) liver, not elsewhere classified; R16.0 Hepatomegaly, not elsewhere classified; R40.2412 Glasgow coma scale score 13-15, at arrival to emergency department; R10.9 Unspecified abdominal pain; D64.9 Anemia, unspecified; F12.90 Cannabis use, unspecified, uncomplicated; I86.1 Scrotal varices; K59.00 Constipation, unspecified; N41.9 Inflammatory disease of prostate, unspecified; N43.3 Hydrocele, unspecified; R33.9 Retention of urine, unspecified; Z80.1 Family history of malignant neoplasm of trachea, bronchus and lung; M25.559 Pain in unspecified hip; R10.30 Lower abdominal pain, unspecified; R26.2 Difficulty in walking, not elsewhere classified; R26.9 Unspecified abnormalities of gait and mobility; R74.0 Nonspecific elevation of levels of transaminase and lactic acid dehydrogenase [LDH]; B96.20 Unspecified Escherichia coli [E. coli] as the cause of diseases classified elsewhere